=== PATIENT | female | born 1940 | race Caucasian/White ===

== ENCOUNTER 2024-09-14 10:36 | Outpatient (CLI) | payer MEDICARE, SELFPAY ==
--- NOTE | ~2024-09-14 | XR_ITS ---
EXAMINATION: XR hand RT min 3V DATE: 09/14/2024 11:17 INDICATION: Trigger finger, right middle finger. TECHNIQUE: 5 views of right hand were obtained. COMPARISON: None. FINDINGS: There is flexion of the third proximal and distal interphalangeal joints. No fracture. 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 IMPRESSION: 1. Abnormal flexion of third proximal and distal interphalangeal joints. Reviewed, dictated and finalized at location A.
--- OUTSIDE RECORDS SUMMARY | 2024-09-14 12:37 | XMS_ITS | Clinical Summary ---
Author Organization [facility] [facility] Address [address] [place] [address] Care Team Providers Care Dean Of Boys Name Role Phone Miscellaneous, Not In File Unavailable Unava ilable Violeta, Renata Cisneros CLIN NURSE SPEC Primary Care Provider + [phone] Allergies Active Allergy Reactions Criticality Noted Date Comments Demeclocycline Rash Medium 11/30/2019 Lincomycin Rash Medium 11/30/2019 Penicillins Rash Medium Medications alendronate (FOSAMAX) 70 mg tablet Take 1 tablet (70 mg total) by mouth every 7 days Take in the morning with a full glass of water, on an empty stomach, and do not take anything else by mouth or lie down for the next 30 min. Active calcium carbonate-vitam in D3 600 mg(1,500mg) -400 unit capsule Take 1 tablet by mouth 2 (two) times a day Active clopidogreL (PLAVIX) 75 mg tablet Take 1 tablet (75 mg total) by mouth daily Active fenofibrate (TRIGLIDE) 160 mg tablet Take 1 tablet (160 mg total) by mouth daily Active hydroCHLOROthia zide (HYDRODIURIL) 25 mg tablet Take 25 mg by mouth daily Active loratadine (CLARITIN) 10 mg tablet Take 10 mg by mouth daily Active lovastatin (MEVACOR) 10 mg tablet Take 4 tablets (40 mg total) by mouth nightly Active metoprolol XL (TOPROL-XL) 25 mg extended release tablet Take 1 tablet (25 mg total) by mouth 2 (two) times a day Active oxybutynin XL (DITROPAN-XL) 5 mg 24 hr tablet Take 2 tablets (10 mg total) by mouth daily Active raNITIdine (ZANTAC) 150 mg tablet Take 1 tablet (150 mg total) by mouth 2 (two) times a day Active ascorbic acid (VITAMIN C) 500 mg tablet,chewable Take 1 tablet/chew tab (500 mg total) by mouth daily Active albuterol HFA (ProAir HFA) 90 mcg/actuation inhaler Inhale 2 puffs every 4 (four) hours as needed for wheezing or shortness of breath 8.5 g 0 Active senna-docusate (PERICOLACE) 8.6-50 mgIndications:c onstipation Take 1 tablet by mouth 2 (two) times a day as needed for constipation 10 tablet 0 Active potassium chloride ER (KLOR-CON) 10 mEq CR tablet Take 1 tablet/capsule (10 mEq total) by mouth daily Active losartan (COZAAR) 25 mg tablet Take 1 tablet (25 mg total) by mouth daily 30 tablet 11 2 Active furosemide (LASIX) 40 mg tablet Take 1 tablet (40 mg total) by mouth daily Active Active Problems Problem Noted Date Diagnosed Date Thoracic aortic aneurysm without rupture 020 Hyperlipidemia 11/06/2013 Overview (09/25/2016): HYPERLIPIDEMIA NEC/NOS Hypertension 11/06/2013 Overview (09/27/2016): HYPERTENSION NOS Gastroesophageal reflux disease Overview (12/02/2019): GERD CAP (community acquired pneumonia) Positive D dimer Elevated brain natriuretic peptide (BNP) level Peripheral edema Acute on chronic diastolic congestive heart fail ure Chronic obstructive pulmonar y disease with acute lower respiratory infection Former smoker Decreased mobility and endurance Ingrown toenail of both feet Acute congestive heart failure Pneumonia Encounters Date Type Department Care Team Description 09/08/2024 2:45 PM CDT Office Visit [facility] Orth[facility] and Sports Medicine [address] [place] [address] [address], [place] [address] Rebel Villalba NP Right hand pain (Primary Dx); Contracture of joint of finger of right hand 09/08/2024 7:50 AM CDT - 09/08/2024 11:59 PM CDT Hospital Encounter [facility] Orthopedics and Sports Medicine [address] [place] [address] [address] [place] [address] Discharge Disposition: Discharge to home or self care 09/08/2024 Telephone [facility] Orthopedics and Sports Medicine [address] [place] [address] [address] [place] [phone] Rebel Villalba NP 09/08/2024 Orders Only [facility] Orthopedics and Sports Medicine [address] [place] [address] [address] [place] [phone] Rebel Villalba NP Right hand pain (Primary Dx); Contracture of joint of finger of right hand from Last 3 Months Surgical History Surgery Date Site/Laterality Comments CHOLECYSTECTOMY Cholecystectomy HYSTERECTOMY Hysterectomy HYSTERECTOMY 06/23/1966 - 06/22/1967 Hysterectomy CHOLECYSTECTOMY 06/23/1995 - 06/22/1996 gallbladder removal EYE SURGERY cataract Medical History Medical History Date Comments Hx Other Medical urinary inconti nence Pancreatitis pancreatitis Hyperlipidemia Hyperlipidemia Hypertension Hypertension Malignant neoplasm of cervix (HCC) Cancer, cervical Pancreatitis 1995 Pancreatitis Hx Other Medical 2010 Diverticulitis Hx Other Medical Hx of pneumonia Gastroesophageal reflux disease GERD Family History Medical History Relation Name Comments ALS Brother 1 ALS; Other Brother 2 cerebral palsy; Throat cancer Father Cancer -throat ; Cause of : Cancer -throat/Cancer -throat; Cause of : Cancer -throat Breast cancer Mother Cancer -breast ; Liver cancer Mother Cancer -liver; Cause of : Cancer -liver/Cancer -liver; Relation Name Status Comments Brother 1 Brother 2 Father (Age 75) Mother Social History Tobacco Use Types Packs/Day Years Used Date Smoking Tobacco: Former Smokeless Tobacco: Never Tobacco Cessation:Counseling Given: No Alcohol Use Standard Drinks/Week Comments No 0 (1 standard drink = 0.6 oz pur e alcohol) AUDIT-C Answer Date Recorded Q1: How often do you have a drink containing alcohol? Never 09/08/2024 Q2: How many drinks containi ng alcohol do you have on a typical day when you are drinking? Patient does not drink Q3: How often do you have si x or more drinks on one occasion? 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 Gender Identity Not on file Sexual Orientation Not on file Obstetrics History Last Filed Vital Signs Vital Sign Reading Time Taken Comments Blood Pressure 124/70 09/08/2024 2:12 PM CDT Pulse 76 09/08/2024 2:12 PM CDT Temperature 36.3 C (97.3 F) 12/03/2019 12:25 PM CDT Respiratory Rate 20 01/25/2022 10:53 AM CDT Oxygen Saturation 94% 12/03/2019 12:25 PM CDT Inhaled Oxygen Concentration - - Weight 82.6 kg (182 lb) 09/08/2024 2:12 PM CDT Height 160 cm (5' 3 ) 09/08/2024 2:12 PM CDT Body Mass Index 32.24 09/08/2024 2:12 PM CDT Plan of Treatment Health Maintenance Due Date Last Done Comments Hepatitis B Screening 1958 Well Visit 65+ 2004 Zoster Vaccine (2 of 3) 01/03/2011 11/08/2010 Osteoporosis Screening-Bone Density Scan 06/27/2017 06/27/2015, 06/27/2015 DTaP/Tdap/Td Vaccine (2 - Td or Tdap) 06/23/2018 06/23/2008 Depression Screening 11/29/2020 11/30/2019 Fall Risk Assessment 12/02/2020 12/03/2019 Covid-19 Vaccine (5 - 2023-2 5 season) 2024 11/29/2021, 05/10/2021, 08/21/2020, Additional history exists Pneumococcal vaccine 65+ Completed 06/08/2015, 0511/2010 Influenza Vaccine Completed 03/29/2024, , 05/05/2018, Additional history exists Procedures Procedure Name Priority Date/Time Associated Diagnosis Comments XR HAND RIGHT 3 OR MORE VIEWS Routine 09/08/2024 2:01 PM CDT Right hand pain from Last 3 Months Results * XR Hand Right 3 or More Views (09/08/2024 2:01 PM CDT) Anatomical Region Laterality Modality Upper Extremities, Hand Right Digital Radiography Narrative 09/08/2024 2:43 PM CDT X-rays of the wrist demonstrate no fracture subluxation or osseous lesions. Joint spaces are intact. Flexion contracture noted at PIP long finger. Rebel Villalba CLIN NURSE SPEC IMG XR PROCEDURES Final Result from Last 3 Months Insurance MDCR HMO REF [facility] MEDICARE Address: [address] MEDICARE ADVANTAGE [facility] MEDICARE Address: [place] [address] [employer] MEDICARE Advance Directives For more information, please contact: [phone] * Full Code (Latest Code Status on File) Date Activated Date Inactivated Comments 11/30/2019 10:34 PM 12/03/2019 10:43 PM Care Teams Dean Of Boys Relationship Specialty Start Date End Date Violeta, Renata Cisneros NP [address] [place] [address] PCP - General Nurse Practitioner 09/25/21 Miscellaneous, Not In File 12/03/19
--- OUTSIDE RECORDS SUMMARY | 2024-09-14 12:37 | XMS_ITS | Referral Summary ---
Author Organization [facility] [place] [address] [facility] Address [address] [place] [facility] [address] Care Team Providers Care Lifestyle Coordinator Name Role Phone Miscellaneous, Not In File Unavailable Unava ilRenata Plascencia PRODUCTION PAINTER Primary Care Provider + [phone] Encounters Date Type Department Care Team Description 09/08/2024 Telephone [facility] Orthopedics and Sports Medicine [address] [place] [phone] Rebel Villalba NP 09/08/2024 Orders Only [facility] Orthopedics and Sports Medicine [address] [place] [phone] Rebel Villalba NP Right hand pain (Primary Dx); Contracture of joint of finger of right hand 09/08/2024 7:50 AM CDT - 09/08/2024 11:59 PM CDT Hospital Encounter [facility] Orthopedics and Sports Medicine [address] [place] [phone] Discharge Disposition: Discharge to home or self care 09/08/2024 2:45 PM CDT Office Visit [facility] Orthopedics and Sports Medicine [address] [place] [phone] Rebel Villalba NP Right hand pain (Primary Dx); Contracture of joint of finger of right hand from Last 3 Months Allergies Active Allergy Reactions Criticality Noted Date [...] both feet Acute congestive heart failure Pneumonia Social History Tobacco Use Types Packs/Day Years [...] on file 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 Rebel Villalba PRODUCTION PAINTER IMG XR PROCEDURES Final Result from Last 3 Months Insurance MDCR HMO REF [facility] MEDICARE ADVANTAGE [employer] MEDICARE Advance Directives For more information, please contact: [phone] * Full Code (Latest Code Status on File) Date Activated Date Inactivated Comments 11/30/2019 10:34 PM 12/03/2019 10:43 PM Care Teams Lifestyle Coordinator Relationship Specialty Start Date End Date Mcdaniel, Renata Cisneros NP [address] [place] [address] PCP - General Nurse Practitioner 09/25/21 Miscellaneous, Not In File 12/03/19
--- OUTSIDE RECORDS SUMMARY | 2024-09-14 12:38 | XMS_ITS | Clinical Summary ---
Author Organization [facility] Address [address] [place] [address] Phone Care Team Providers Care Accounting Bookkeeper Name Role Phone Violeta, Renata MURILLO CNP Primary Care Provider [phone] Social History Tobacco Use Types Packs/Day Years Used Date Smoking Tobacco: Never Assessed Comments No Sex and Gender Information Value Date Recorded Sex Assigned at Not on file Legal Sex Female 10:17 PM CDT Gender Identity Not on file Sexual Orientation Not on file Plan of Treatment Health Maintenance Due Date Last Done Comments Hepatitis C Virus (HCV) Screening 1940 Zoster Immunization (2 of 3) 01/03/2011 11/08/2010 Respiratory Syncytial Virus (RSV) Immunization (Adult) (1 - 1-dose 75+ series) 2014 Influenza Immunization (#1) 02/22/202403/23, 05/01/2020, 05/04/2019, Additional history exists SARS-COV-2 Immunization ( season) 2024 11/29/2021, 05/10/2021, 08/21/2020, Additional history exists DTaP/Tdap/Td Immunization Discontinued 06/23/2008 TdaP Immunization Completed 06/23/2008 Pneumococcal Immunization (50+ years) Completed 06/08/2015, 10/26/2010 Pneumococcal Immunization Combined Discontinued 06/08/2015, 10/26/2010 DEXA Bone Density Discontinued 06/27/2015 Hepatitis B Immunization Aged Out No longer eligible based on patient's age to complete this topic Meningococcal Immunization (ACWY) Aged Out No longer eligible based on patient's age to complete this topic Rotavirus Immunization Aged Out No lo nger eligible based on patient's age to complete this topic Procedures Procedure Name Priority Date/Time Associated Diagnosis Comments [facility] BONE DENSITOMETRY AXIAL SKELETON Routine 06/27/2015 12:13 PM [employer]HALT PAVING FOREMAN Osteopenia from Last 3 Months or Most Recently Relevant to Health Maintenance Results * [facility] BONE DENSITOMETRY AXIAL SKELETON (06/27/2015 12:13 PM ASPHALT PAVING FOREMAN) Anatomical Region Laterality Modality BODY N/A Other 06/27/2015 3:06 PM [employer]HALT [employer]ING FOREM[employer] Impressions 06/27/2015 3:10 PM ASPHALT PAVING FOREMAN IMPRESSION: Low bone mass. The patient's risk for fracture should be based not only on bone mineral density measurements but also clinical risk factors. Bone mineral density: Normal (T-score above or = -1.0) Low bone mass (T-score between -1.0 and -2.5) replaces the previously used term osteopenia Osteoporosis (T-score = or below -2.5) Medical evaluation for secondary causes of low bone mineral density may be appropriate. FRAX is a World Health Organization validated fracture risk assessment tool that calculates a person's 10 year probability of a major osteoporosis related fracture and hip fracture. According to the National Osteoporosis Foundation guidelines, postmenopausal women and men age 50 or older with low bone mass and a 10 year probability of a major osteoporosis related fracture = or greater than 20% or a 10 year probability of a hip fracture = or greater than 3% should be considered for treatment. For further information, including treatment recommendations, please refer to the 2013 ISCD Official Positions (http://www.iscd.org) and the NOF's Clinician's Guide to Prevention and Treatment of Osteoporosis (http://www.nof.org/professionals/clinical-guidelines) Narrative 06/27/2015 3:10 PM ASPHALT PAVING FOREMAN HISTORY: 75 year old postmenopausal female with given history of other specified disorders of bone density structure (unspecified site).. Current Height: 64 inches Maximum Height: 65.5 inches Weight: 206 pounds Reported use of multivitamin, vitamin D, and calcium. RISK FACTORS: History of fracture as an adult (not secondary to significant trauma) use of antacids for greater than 6 months. No regular weightbearing exercise, no regular dairy product consumption. COMPARISON(S): 02/18/2013, 11/09/2010 [employer] COSMETOLOGY/MODEL: Mesh [place] (S/N [id number]) FINDINGS: AP lumbar spine L2-L4 Total BMD is 1.038 g/iv3A-lntml is -1.4 Most recent prior BMD was 1.041 g/cm2 There has been a 0.3% decrease in BMD which is not statistically significant. Left Hip Current Total BMD is 0.816 g/ji5Z-yvbxy is -1.5 Most recent prior Total BMD was 0.820 g/cm2 There has been a 0.5% decreased in BMD which is not statistically significant. Current femoral neck BMD is 0.703 g/zm7D-htgsp is -2.4 Fracture risk assessment (FRAX): 10 year risk for a major osteoporotic fracture is 15.4 % 10 year risk for a hip fracture is 4.6 % The FRAX tool has not been validated in patients currently or previously treated with pharmacotherapy for osteoporosis. In such patients, clinical judgement must be exercised in interpreting FRAX scores as the fracture risk may be overestimated. Alfonso Lezama M.D. THIS IS AN ELECTRONICALLY VERIFIED REPORT 06/27/2015 3:06 PM: Alfonso Lezama M.D. Radiologist MD: HOLLY Procedure Note Alfonso Lezama MD - 06/27/2015 HISTORY: 75 year old postmenopausal female with given history of other specified disorders of bone density structure (unspecified site).. Current Height: 64 inches Maximum Height: 65.5 inches Weight: 206 pounds Reported use of multivitamin, vitamin D, and calcium. RISK FACTORS: History of fracture as an adult (not secondary to significant trauma) use of antacids for greater than 6 months. No regular weightbearing exercise, no regular dairy product consumption. COMPARISON(S): 02/18/2013, 11/09/2010 [employer]CTOR [employer] COSMETOLOGY/MODEL: [employer] [place] (S/N [id number]) FINDINGS: AP lumbar spine L2-L4 Total BMD is 1.038 g/cp7U-axpfp is -1.4 Most recent prior BMD was 1.041 g/cm2 There has been a 0.3% decrease in BMD which is not statistically significant. Left Hip Current Total BMD is 0.816 g/oz8N-dttxf is -1.5 Most recent prior Total BMD was 0.820 g/cm2 There has been a 0.5% decreased in BMD which is not statistically significant. Current femoral neck BMD is 0.703 g/wt9W-wnhhu is -2.4 Fracture risk assessment (FRAX): 10 year risk for a major osteoporotic fracture is 15.4 % 10 year risk for a hip fracture is 4.6 % The FRAX tool has not been validated in patients currently or previously treated with pharmacotherapy for osteoporosis. In such patients, clinical judgement must be exercised in interpreting FRAX scores as the fracture risk may be overestimated. Alfonso Lezama M.D. THIS IS AN ELECTRONICALLY VERIFIED REPORT 06/27/2015 3:06 PM: Alfonso Lezama M.D. Radiologist MD: [place]LLY IMPRESSION: Low bone mass. The patient's risk for fracture should be based not only on bone mineral density measurements but also clinical risk factors. Bone mineral density: Normal (T-score above or = -1.0) Low bone mass (T-score between -1.0 and -2.5) replaces the previously used term osteopenia Osteoporosis (T-score = or below -2.5) Medical evaluation for secondary causes of low bone mineral density may be appropriate. FRAX is a World Health Organization validated fracture risk assessment tool that calculates a person's 10 year probability of a major osteoporosis related fracture and hip fracture. According to the National Osteoporosis Foundation guidelines, postmenopausal women and men age 50 or older with low bone mass and a 10 year probability of a major osteoporosis related fracture = or greater than 20% or a 10 year probability of a hip fracture = or greater than 3% should be considered for treatment. For further information, including treatment recommendations, please refer to the 2013 ISCD Official Positions (http://www.iscd.org) and the NOF's Clinician's Guide to Prevention and Treatment of Osteoporosis (http://www.nof.org/professionals/clinical-guidelines) Get Ndiaye MD IMG DEXA ORDERABLES Final Re sult from Last 3 Months or Most Recently Relevant to Health Maintenance Insurance [facility] on file Care Teams Accounting Bookkeeper Relationship Specialty Start Date End Date Renata Mcdaniel APRN, FRINGING MACHINE OPERATOR [address] [place] [address] PCP - General Family Medicine 03/07/22
--- OUTSIDE RECORDS SUMMARY | 2024-09-14 12:38 | XMS_ITS | Data Portability ---
[facility] [place] Address [address] [place] [address] Care Team Providers Care [employer] Name Role Phone RENATA MONTGOMERY Primary Care Provider Unavailabl e Assessment No assessment recorded. Plan of Treatment Reminders Order Date Submit Date Provider Last Modified By Organization Details Last Modified Time Details Appointments ANY 15 2024 10:00A M Renata Montgomery, ASSISTANT CHIEF ENGINEER, ASSEMBLER SHOW MOTOR-C Not available Not available Not available Lab lipid panel, serum 2023 024 [facility], [address] [place] [address], [id number], 03/30/2024 08:24:25 BMP, serum or plasma 2023 024 [facility], [address] [place] [address], [id number], 03/30/2024 08:24:27 CBC w/ auto diff 2023 024 [facility], [address] [place] [address], [place], [address], 03/30/2024 08:24:28 lipid panel, serum 2023 024 [facility], [address] [place] [address], [id number], 08/27/2023 03:08:30 BNP (B-type natriur etic peptide ), serum or plasma 2023 024 [facility], [address] [place] [address], [id number], 08/27/2023 10:37:18 CMP, serum or plasma 2023 024 [facility], [address] [place] [address] 2, [place], [address], 08/27/2023 03:08:31 CBC 2023 024 [facility], [address] [place] [address], [place], [address], 08/27/2023 03:08:32 Referral hand surgeon referra l 2024 025 [facility], [address], [place], [address], 08/19/2024 11:28:12 hand surgeon referra l 2023 024 [email or web address] Rogers MD, 2 [facility], [facility] [address], [place], [address], 05/25/2024 16:44:56 Procedures None recorde d. Surgeries None recorde d. Imaging None recorde d. Medication Orders oxybuty uri chlorid e ER 15 mg tablet, extende d release 24 hr 2023 024 [facility][id number], [address], [place], [id number], 08/02/2024 11:32:32 oxybuty uri chlorid e ER 15 mg tablet, extende d release 24 hr 2023 024 [facility] #[id number], [address], [place], [id number], 11/27/2023 11:59:09 oxybuty uri chlorid e ER 15 mg tablet, extende d release 24 hr 2023 024 [facility] #[id number], [address], [place], [id number], 08/26/2023 12:08:44 oxybuty uri chlorid e ER 15 mg tablet, extende d release 24 hr 2022 09/05/2 023 [facility][id number], [address], [place], [id number], 02/25/2023 11:35:35 Patient TargetsNo targets recorded. Patient Instructions Encounter Date Encounter Id Patient Instructions Last Modified By Organization Details Last Modified Time 02/25/2023 [id number] gastroesophageal reflux disease (GERD): care instructions Not available 02/25/2023 11:34:07 high cholesterol : care instructions Not available 02/25/2023 11:34:07 A healthy lifest yle: care instructions Not available 02/25/2023 11:34:08 leg and ankle ed sharita: care instructions Not available 02/25/2023 11:34:07 learning about vitamin D Not available 02/25/2023 11:34:08 Stress Incontine nce: Care Instructions Not available 02/25/2023 11:34:08 learning about h igh blood pressure Not available 02/25/2023 11:34:08 Cont on current medications. Not available 02/25/2023 11:23:01 f/u 6 months DWP barriers to care: none Not available 02/25/2023 11:23:03 08/26/2023 [id number] gastroesophageal reflux disease (GERD): care instructions Not available 08/26/2023 12:08:38 high cholesterol : care instructions Not available 08/26/2023 12:08:38 A healthy lifest yle: care instructions Not available 08/26/2023 12:08:38 leg and ankle ed sharita: care instructions Not available 08/26/2023 12:08:38 learning about vitamin D Not available 08/26/2023 12:08:37 Stress Incontine nce: Care Instructions Not available 08/26/2023 12:08:37 learning about h igh blood pressure Not available 08/26/2023 12:08:37 Cont on current medications. Not available 08/26/2023 11:51:40 f/u 3 months DWP barriers to care: none Not available 08/26/2023 11:55:47 11/27/2023 [id number] gastroesophageal reflux disease (GERD): care instructions Not available 11/27/2023 11:59:02 high cholesterol : care instructions Not available 11/27/2023 11:59:02 A healthy lifest yle: care instructions Not available 11/27/2023 11:59:02 leg and ankle ed sharita: care instructions Not available 11/27/2023 11:59:02 learning about vitamin D Not available 11/27/2023 11:59:02 Stress Incontine nce: Care Instructions Not available 11/27/2023 11:59:02 learning about h igh blood pressure Not available 11/27/2023 11:59:02 Rest: Advise pat ient to limit activities that exacerbate symptoms. Splinting: Recommend using a finger splint to immobilize the affected finger, particularly at night. NSAIDs: Prescribe nonsteroidal anti-inflammatory drugs (e.g., ibuprofen) to reduce pain and inflammation. Ice Therapy: Apply ice to the affected area for 15-20 minutes several times a day to alleviate swelling. 2. Corticosteroid Injection: Cont on current medications. Not available 11/27/2023 12:00:54 f/u 4 months DWP barriers to care: none Not available 11/27/2023 12:01:27 03/29/2024 [id number] influenza (flu) vaccine: care instructions Not available 03/29/2024 11:06:33 gastroesophageal reflux disease (GERD): care instructions Not available 03/29/2024 11:06:07 high cholesterol : care instructions Not available 03/29/2024 11:06:07 A healthy lifest yle: care instructions Not available 03/29/2024 11:06:07 leg and ankle ed sharita: care instructions Not available 03/29/2024 11:06:07 learning about vitamin D Not available 03/29/2024 11:06:07 Stress Incontine nce: Care Instructions Not available 03/29/2024 11:06:07 learning about h igh blood pressure Not available 03/29/2024 11:06:07 Rest: Advise pat ient to limit activities that exacerbate symptoms. Splinting: Recommend using a finger splint to immobilize the affected finger, particularly at night. NSAIDs: Prescribe nonsteroidal anti-inflammatory drugs (e.g., ibuprofen) to reduce pain and inflammation. Ice Therapy: Apply ice to the affected area for 15-20 minutes several times a day to alleviate swelling. 2. Corticosteroid Injection: Cont on current medications. Not available 03/29/2024 11:08:11 f/u 4 months DWP barriers to care: none Not available 03/29/2024 11:04:08 08/02/2024 [id number] gastroesophageal reflux disease (GERD): care instructions Not available 08/02/2024 11:54:43 high cholesterol : care instructions Not available 08/02/2024 11:54:43 A healthy lifest yle: care instructions Not available 08/02/2024 11:54:43 leg and ankle ed sharita: care instructions Not available 08/02/2024 11:54:43 learning about vitamin D Not available 08/02/2024 11:54:43 Stress Incontine nce: Care Instructions Not available 08/02/2024 11:54:43 learning about h igh blood pressure Not available 08/02/2024 11:54:43 Rest: Advise pat ient to limit activities that exacerbate symptoms. Splinting: Recommend using a finger splint to immobilize the affected finger, particularly at night. NSAIDs: Prescribe nonsteroidal anti-inflammatory drugs (e.g., ibuprofen) to reduce pain and inflammation. Ice Therapy: Apply ice to the affected area for 15-20 minutes several times a day to alleviate swelling. 2. Corticosteroid Injection: Cont on current medications. Not available 08/03/2024 10:34:14 f/u 4 months DWP barriers to care: none Not available 08/02/2024 11:43:11 Reason for Referral Hand Surgeon Referral for Ac quired trigger finger of right middle finger Referring Physician: Renata Montgomery [facility], Encounter Date: 03/29/2024 Hand Surgeon Referral for Ac quired trigger finger of right middle finger Referring Physician: Renata Montgomery [facility], Encounter Date: 08/02/2024 Results Created Date Observation Date Name Description Value Unit Range Abnormal Flag Note LastModifiedBy Organization Detail LastModifiedTime 08/26/1908/26/2023 LIPID PANEL cholesterol, total 125 mg/dL 100-19 9 Not Available [facility] Department [address] [place], [address], 08/27/2023 03:08:30 08/26/1908/26/2023 LIPID PANEL triglyceride s 107 mg/dL 0-149 Not Available [facility] Department [address] [place], [address], 08/27/2023 03:08:30 08/26/19 24 08/26/2023 LIPID PANEL HDL cholesterol 58 mg/dL 40-999 Not Available [facility] Department [address] [place], [address], 08/27/2023 03:08:30 08/26/19 24 08/26/2023 LIPID PANEL VLDL cholesterol oscar 21 mg/dL 5-40 Not Available [facility] Department [address] [place], [address], 08/27/2023 03:08:30 08/26/19 24 08/26/2023 LIPID PANEL LDL chol calc (nih) 60 mg/dL 0-99 Not Available [facility] Department [address] [place], [address], 08/27/2023 03:08:30 08/26/19 24 08/26/2023 COMP. METAB OLIC PANEL (14) glucose 109 mg/dL 70-99 above high normal Not Available [facility] Department [address] [place], [address], 08/27/2023 03:08:31 08/26/19 24 08/26/2023 COMP. METAB OLIC PANEL (14) BUN 24 mg/dL 8-27 Not Available [facility] Department [address] [place], [address], 08/27/2023 03:08:31 08/26/19 24 08/26/2023 COMP. METAB OLIC PANEL (14) creatinine 0.96 mg/dL 0.76-1 .27 Not Available [facility] Department [address] [place] [address], [address], 08/27/2023 03:08:31 08/26/19 24 08/26/2023 COMP. METAB OLIC PANEL (14) eGFR 58 >=60 below low normal Units for eGFR value s are mL/mi n/1.7 3 The eGFR Calcu latio n has not been valid ated for patie nts under the age of 18. If test resul ts are displ ayed for a patie nt under the age of 18, disre anca that value . Not Available [facility] Department [address] [place] [address], [address], 08/27/2023 03:08:31 08/26/19 24 08/26/2023 COMP. METAB OLIC PANEL (14) BUN/creatini ne ratio 25 10-28 Not Available [facility] Department [address] [place], [address], 08/27/2023 03:08:31 08/26/19 24 08/26/2023 COMP. METAB OLIC PANEL (14) sodium 143 mmol/ L 134-14 4 Not Available [facility] Department [address] [place] [address], [address], 08/27/2023 03:08:31 08/26/19 24 08/26/2023 COMP. METAB OLIC PANEL (14) potassium 4.2 mmol/ L 3.5-5. 2 Not Available [facility] Department [address] [place] [address], [address], 08/27/2023 03:08:31 08/26/19 24 08/26/2023 COMP. METAB OLIC PANEL (14) chloride 102 mmol/ L 96-106 Not Available [facility] Department [address] [place] [address], [address], 08/27/2023 03:08:31 08/26/19 24 08/26/2023 COMP. METAB OLIC PANEL (14) carbon dioxide, total 30 mmol/ L 20-29 above high normal Not Available [facility] Department [address] [place] [address], [address], 08/27/2023 03:08:31 08/26/19 24 08/26/2023 COMP. METAB OLIC PANEL (14) calcium 10.0 mg/dL 8.7-10 .3 Not Available [facility] Department [address] [place] [address], [address], 08/27/2023 03:08:31 08/26/19 24 08/26/2023 COMP. METAB OLIC PANEL (14) protein, total 6.5 g/dL 6.0-8. 5 Not Available [facility] Department [address] [place] [address], [address], 08/27/2023 03:08:31 08/26/19 24 08/26/2023 COMP. METAB OLIC PANEL (14) albumin 3.9 g/dL 3.7-4. 7 Not Available [facility] Department [address] [place] [address], [address], 08/27/2023 03:08:31 08/26/19 24 08/26/2023 COMP. METAB OLIC PANEL (14) globulin, total 2.6 g/dL 1.5-4. 5 Not Available [facility] Department [address] [place], [address], 08/27/2023 03:08:31 08/26/19 24 08/26/2023 COMP. METAB OLIC PANEL (14) A/G ratio 1.0 1.2-2. 2 below low normal Not Available [facility] Department [address] [place], [address], 08/27/2023 03:08:31 08/26/19 24 08/26/2023 COMP. METAB OLIC PANEL (14) bilirubin, total 0.5 mg/dL 0.0-1. 2 Not Available [facility] Department [address] [place], [address], 08/27/2023 03:08:31 08/26/19 24 08/26/2023 COMP. METAB OLIC PANEL (14) alkaline phosphatase 27 IU/L 44-121 below low normal Not Available [facility] Department [address] [place] [address], [address], 08/27/2023 03:08:31 08/26/19 24 08/26/2023 COMP. METAB OLIC PANEL (14) AST (SGOT) 26 IU/L 0-40 Not Available [facility] Department [address] [place] [address], [address], 08/27/2023 03:08:31 08/26/19 24 08/26/2023 COMP. METAB OLIC PANEL (14) ALT (SGPT) 12 IU/L 0-32 Not Available [facility] Department [address] [place] [address], [address], 08/27/2023 03:08:31 08/26/19 24 08/26/2023 CBC, NO DIFFE RENTI AL/PL ATELE T WBC 7.1 x10e3 /uL 3.4-10 .8 Not Available [facility] Department [address] [place] [address], [address], 08/27/2023 03:08:32 08/26/19 24 08/26/2023 CBC, NO DIFFE RENTI AL/PL ATELE T RBC 4.14 x10e6 /uL 3.77-5 .28 Not Available [facility] Department [address] [place], [address], 08/27/2023 03:08:32 08/26/19 24 08/26/2023 CBC, NO DIFFE RENTI AL/PL ATELE T hemoglobin 13.1 g/dL 11.1-1 5.9 Not Available [facility] Department [address] [place], [address], 08/27/2023 03:08:32 08/26/19 24 08/26/2023 CBC, NO DIFFE RENTI AL/PL ATELE T hematocrit 41.4 % 34.0-4 6.6 Not Available [facility] Department [address] [place], [address], 08/27/2023 03:08:32 08/26/19 24 08/26/2023 CBC, NO DIFFE RENTI AL/PL ATELE T MCV 100 fL 79-97 above high normal Not Available [facility] Department [address] [place], [address], 08/27/2023 03:08:32 08/26/19 24 08/26/2023 CBC, NO DIFFE RENTI AL/PL ATELE T MCH 31.6 pg 26.6-3 3.0 Not Available [facility] Department [address] [place], [address], 08/27/2023 03:08:32 08/26/19 24 08/26/2023 CBC, NO DIFFE RENTI AL/PL ATELE T MCHC 31.6 g/dL 31.5-3 5.7 Not Available [facility] Department [address] [place], [address], 08/27/2023 03:08:32 08/26/19 24 08/26/2023 CBC, NO DIFFE RENTI AL/PL ATELE T RDW 14.6 % 11.5-1 4.5 above high normal Not Available [facility] Department [address] [place], [address], 08/27/2023 03:08:32 08/26/19 24 08/26/2023 CBC, NO DIFFE RENTI AL/PL ATELE T NRBC 0 % 0-0 Not Available [facility] Department [address] [place], [address], 08/27/2023 03:08:32 08/26/19 24 08/27/2023 B-TYP E NATRI URETI C PEPTI DE B-type natriuretic peptide 182.5 pg/mL 0.0-10 0.0 above high normal Sieme ns AD[facility] XP metho dolog y Not Available [facility] ([facility]) [address] [place], [address], 08/27/2023 10:37:18 03/29/20 24 03/30/2024 LIPID PANEL cholesterol, total 159 mg/dL 100-19 9 Not Available [facility] ([facility]) [address] [place], [address], 03/30/2024 08:24:25 03/29/20 24 03/30/2024 LIPID PANEL triglyceride s 95 mg/dL 0-149 Not Available [facility] ([facility]) [address] [place], [address], 03/30/2024 08:24:25 03/29/20 24 03/30/2024 LIPID PANEL HDL cholesterol 67 mg/dL >39 Not Available [facility]) [address] [place], [address], 03/30/2024 08:24:25 03/29/20 24 03/30/2024 LIPID PANEL VLDL cholesterol oscar 17 mg/dL 5-40 Not Available [facility]) [address] [facility] [place], [address], 03/30/2024 08:24:25 03/29/2003/30/2024 LIPID PANEL LDL chol calc ([facility]) 75 mg/dL 0-99 Not Available [facility]) [address] [place], [address], 03/30/2024 08:24:25 03/29/2003/30/2024 BASIC METAB OLIC PANEL (8) glucose 112 mg/dL 70-99 above high normal Not Available [facility] ([facility]) [address] [place], [address], 03/30/2024 08:24:26 03/29/2003/30/2024 BASIC METAB OLIC PANEL (8) BUN 18 mg/dL 8-27 Not Available [facility] ([facility]) [address] [place], [address], 03/30/2024 08:24:26 03/29/2003/30/2024 BASIC METAB OLIC PANEL (8) creatinine 0.83 mg/dL 0.57-1 .00 Not Available [facility] ([facility]) [address] [facility], [place], [address], 03/30/2024 08:24:26 03/29/2003/30/2024 BASIC METAB OLIC PANEL (8) eGFR 69 mL/mi n/1.7 3 >59 Not Available [facility] ([facility]) [address] [place], [address], 03/30/2024 08:24:26 03/29/2003/30/2024 BASIC METAB OLIC PANEL (8) BUN/creatini ne ratio 22 12-28 Not Available [facility] ([facility]) [address] [place], [address], 03/30/2024 08:24:26 03/29/2003/30/2024 BASIC METAB OLIC PANEL (8) sodium 143 mmol/ L 134-14 4 Not Available [facility] ([facility]) [address] [place], [address], 03/30/2024 08:24:26 03/29/2003/30/2024 BASIC METAB OLIC PANEL (8) potassium 4.3 mmol/ L 3.5-5. 2 Not Available [facility] ([facility]) [address] [place], [address], 03/30/2024 08:24:26 03/29/2003/30/2024 BASIC METAB OLIC PANEL (8) chloride 103 mmol/ L 96-106 Not Available [facility] ([facility]) [address] [facility], [place], [address], 03/30/2024 08:24:26 03/29/2003/30/2024 BASIC METAB OLIC PANEL (8) carbon dioxide, total 26 mmol/ L 20-29 Not Available [facility] ([facility]) [address] [place], [address], 03/30/2024 08:24:26 03/29/2003/30/2024 BASIC METAB OLIC PANEL (8) calcium 10.0 mg/dL 8.7-10 .3 Not Available [facility] ([facility]) [address] [place], [address], 03/30/2024 08:24:26 03/29/2003/30/2024 CBC WITH DIFFE RENTI AL/PL ATELE T WBC 7.7 x10e3 /uL 3.4-10 .8 Not Available [facility] ([facility]) [address] [place], [address], 03/30/2024 08:24:28 03/29/20 24 03/30/2024 CBC WITH DIFFE RENTI AL/PL ATELE T RBC 4.70 x10e6 /uL 3.77-5 .28 Not Available [facility] ([facility]) [address] [facility], [place], [address], 03/30/2024 08:24:28 03/29/2003/30/2024 CBC WITH DIFFE RENTI AL/PL ATELE T hemoglobin 14.5 g/dL 11.1-1 5.9 Not Available [facility] ([facility]) [address] [facility], [place], [address], 03/30/2024 08:24:28 03/29/2003/30/2024 CBC WITH DIFFE RENTI AL/PL ATELE T hematocrit 46.1 % 34.0-4 6.6 Not Available [facility] ([facility]) [address] [facility], [place], [address], 03/30/2024 08:24:28 03/29/2003/30/2024 CBC WITH DIFFE RENTI AL/PL ATELE T MCV 98 fL 79-97 above high normal Not Available [facility] ([facility]) [address] [facility], [place], [address], 03/30/2024 08:24:28 03/29/2003/30/2024 CBC WITH DIFFE RENTI AL/PL ATELE T MCH 30.9 pg 26.6-3 3.0 Not Available [facility] ([facility]) [address] [facility], [place], [address], 03/30/2024 08:24:28 03/29/2003/30/2024 CBC WITH DIFFE RENTI AL/PL ATELE T MCHC 31.5 g/dL 31.5-3 5.7 Not Available [facility] ([facility]) [address] [place], [address], 03/30/2024 08:24:28 03/29/2003/30/2024 CBC WITH DIFFE RENTI AL/PL ATELE T RDW 12.0 % 11.7-1 5.4 Not Available [facility] ([facility]) [address] [facility], [place], [address], 03/30/2024 08:24:28 03/29/20 24 03/30/2024 CBC WITH DIFFE RENTI AL/PL ATELE T platelets 257 x10e3 /uL 150-45 0 Not Available [facility] ([facility]) [address] [facility], [place], [address], 03/30/2024 08:24:28 03/29/2003/30/2024 CBC WITH DIFFE RENTI AL/PL ATELE T neutrophils 64 % notest ab. Not Available [facility] ([facility]) [address] [facility], [place], [address], 03/30/2024 08:24:28 03/29/20 24 03/30/2024 CBC WITH DIFFE RENTI AL/PL ATELE T lymphs 21 % notest ab. Not Available [facility] ([facility]) [address] [facility], [place], [address], 03/30/2024 08:24:28 03/29/2003/30/2024 CBC WITH DIFFE RENTI AL/PL ATELE T monocytes 9 % notest ab. Not Available [facility] ([facility]) [address] [facility], [place], [address], 03/30/2024 08:24:28 03/29/20 24 03/30/2024 CBC WITH DIFFE RENTI AL/PL ATELE T eos 4 % notest ab. Not Available [facility] ([facility]) [address] [facility], [place], [address], 03/30/2024 08:24:28 03/29/20 24 03/30/2024 CBC WITH DIFFE RENTI AL/PL ATELE T basos 1 % notest ab. Not Available [facility] ([facility]) [address] [facility], [place], [address], 03/30/2024 08:24:28 03/29/20 24 03/30/2024 CBC WITH DIFFE RENTI AL/PL ATELE T neutrophils (absolute) 5.1 x10e3 /uL 1.4-7. 0 Not Available [facility] ([facility]) [address] [facility], [place], [address], 03/30/2024 08:24:28 03/29/2003/30/2024 CBC WITH DIFFE RENTI AL/PL ATELE T lymphs (absolute) 1.6 x10e3 /uL 0.7-3. 1 Not Available [facility] ([facility]) [address] [facility], [place], [address], 03/30/2024 08:24:28 03/29/20 24 03/30/2024 CBC WITH DIFFE RENTI AL/PL ATELE T monocytes(ab solute) 0.7 x10e3 /uL 0.1-0. 9 Not Available [facility] ([facility]) [address] [facility], [place], [address], 03/30/2024 08:24:28 03/29/2003/30/2024 CBC WITH DIFFE RENTI AL/PL ATELE T eos (absolute) 0.3 x10e3 /uL 0.0-0. 4 Not Available [facility] ([facility]) [address] [facility], [place], [address], 03/30/2024 08:24:28 03/29/2003/30/2024 CBC WITH DIFFE RENTI AL/PL ATELE T baso (absolute) 0.1 x10e3 /uL 0.0-0. 2 Not Available [facility] ([facility]) [address] [place], [address], 03/30/2024 08:24:28 03/29/20 24 03/30/2024 CBC WITH DIFFE RENTI AL/PL ATELE T immature granulocytes 1 % notest ab. Not Available [facility] ([facility]) [address] [facility], [place], [address], 03/30/2024 08:24:28 03/29/2003/30/2024 CBC WITH DIFFE RENTI AL/PL ATELE T immature grans (abs) 0.0 x10e3 /uL 0.0-0. 1 Not Available [facility] ([facility]) [address] [facility], [place], [address], 03/30/2024 08:24:28 Result Notes None recorded. 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 Active 2019 Not Available [facility] 4 23:39:43 Mild memory disturban ce 822337392 Active 2021 Not Available [facility] 4 23:39:42 Essential hypertens ion 61682282 Active Not Available [facility] 4 23:39:43 Hyperlipi demia 73489363 Active Not Available [facility] 4 23:39:43 Osteopeni a 344692083 Completed 01/13/2017 Renata Montgomery APN, ASSEMBLER SHOW MOTOR-C Attn: Accounting ,[address] [facility], [place], [address] , [facility] 7 11:10:51 Diverticu litis of colon 343349085 Active Not Available [facility] 4 23:39:42 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 51933069 Active Not Available [facility] 4 23:39:43 History of cerebrova scular accident 865607119 Active Not Available [facility] 4 23:39:42 Gastroeso phageal reflux disease 288867523 Active Not Available [facility] 4 23:39:42 Obesity 552389693 Active Not Available [facility] 4 23:39:42 Acquired trigger finger of right middle finger 76358036944 9105 Active 2023 Renata Montgomery APN, ASSEMBLER SHOW MOTOR-C Attn: Accounting ,[address] [facility], [place], [address] , [facility] 4 11:47:51 Random blood sugar above reference range 966121175 Active Not Available [facility] 4 23:39:42 Cough 17752795 Completed 01/13/2017 Renata Montgomery APN ASSEMBLER SHOW MOTOR-C Attn: Accounting ,[address] [facility], [place], [place], [address] [place] [address] , [facility] 7 11:10:45 Seasonal allergy 087439992 Active Not Available [facility] 4 23:39:42 Advance directive discussed with patient 664323541 Completed 05/05/2018 Renata Montgomery APN, FNP-C Attn: Accounting ,[address] [facility], [place], [place], [address] [place] [address] , [facility] 8 11:36:28 Osteoarth ritis 471820459 Active 2016 Not Available [facility] 4 23:39:42 Excessive daytime sleepines s - normal night sleep 813212083 Active 2016 Not Available [facility] 4 23:39:42 Problem Notes None recorded. Procedures Surgical History Date Name Laterality Status Provider Name and Address Organization Details Recorded Time 05/23/19 96 Cholecystectomy completed Renata Montgomery APN, ASSEMBLER SHOW MOTOR-C Attn: Accounting, [address] [facility], [place], [address], [facility] 07/08/2017 15:56:16 01/01/19 67 Hysterectomy completed Angelika WAGNER - [facility] 09/18/2016 11:34:25 Dilation and Curettage completed Yuliya Baumann [facility] 08/17/2014 12:37:34 Imaging Results None recorded. Procedure Notes None recorded. Medical Equipment None Reported. Allergies Allergen ID Allergen Name Allergen Category Reaction Reaction Severity Criticality Documentation Date Start Date Code Code System Note Provider Name and Address Organization Details Recorded Time 972202 lincomyci n medicatio n rash Not available high 08/02/20242019 6398 RxNorm Not Available Not Available Not Available 004733 demeclocy canales medicatio n rash Not available high 08/02/20242019 3154 RxNorm Not Available Not Available Not Available 20715 Product containin g penicilli n (product) medicatio n rash severe Not available 08/17/2014 95669 8001 SNOMED Not Available Not Available Not Available 76315 demeclocy canales hydrochlo ride medicatio n rash severe Not available 01/13/2017 78769 RxNorm Not Available Not Available Not Available Medications Name Sig Start Date Stop Date Status Note LastModified by Organization Details LastModified Time azithromy jade 500 mg tabs 12/13 completed Not Available Not Available Not Available hydrochlo rothiazid e 25 mg tabs 12/13 completed not taking Not Available Not Available Not Available azithromy jade 250 mg tabs 12/13 completed Not Available Not Available Not Available Prescript ion - Change 05/21 completed Not Available Not Available Not Available alendrona te sodium 70 mg tabs 12/13 completed Not Available Not Available Not Available proair hfa 108 mcg/act aers 05/03 completed Not Available Not Available Not Available oxybutyni n chloride 5 mg tabs 12/13 completed Not Available Not Available Not Available furosemid e 40 mg tablet TAKE 1 TABLET BY MOUTH EVERY DAY active Not Available Not Available No t Available oxybutyni n chloride ER 15 mg tablet,ex tended release 24 hr TAKE 1 TABLET BY MOUTH EVERY DAY active was not helping when taking Not Available Not Available Not Available oxybutyni n chloride ER 10 mg tablet,ex tended release 24 hr TAKE 1 TABLET BY MOUTH EVERY DAY 08/25 completed Not Available Not Available Not Available azithromy jade 250 mg tablet TAKE 2 TABLETS (500 MG) BY ORAL ROUTE ONCE DAILY FOR 1 DAY THEN 1 TABLET (250 MG) BY ORAL ROUTE ONCE DAILY FOR 4 DAYS 08/02 completed Not Available Not Available Not Available promethaz ine 6.25 mg/5 mL oral syrup TAKE 5 ML BY MOUTH FOUR TIMES DAILY NEEDED 08/25 completed Not Available Not Available Not Available alendrona te 70 mg tablet TAKE 1 TABLET BY MOUTH EVERY WEEK active Not Available Not Available No t Available lovastati n 40 mg tablet TAKE 1 TABLET BY MOUTH EVERY EVENING WITH A MEAL active Not Available Not Available No t Available potassium chloride ER 10 mEq tablet,ex tended release TAKE 1 TABLET BY MOUTH EVERY DAY 08/22 completed Not Available Not Available Not Available Zyrtec 10 mg tablet Take 1 tablet every day by oral route. 01/04 completed Not Available Not Available Not Available clopidogr el 75 mg tablet TAKE 1 TABLET BY MOUTH EVERY DAY active Not Available Not Available No t Available ciproflox acin 500 mg tablet 05/21 completed Not Available Not Available Not Available sulfameth oxazole 800 mg-trimet hoprim 160 mg tablet Take 1 tablet every 12 hours by oral route for 10 days. 10/31 completed Not Available Not Available Not Available Tessalon Perles 100 mg capsule Take 1 capsule 3 times a day by oral route. 01/04 completed Not Available Not Available Not Available ranitidin e 150 mg tablet TAKE 1 TABLET BY MOUTH TWICE DAILY 07/27 completed Not Available Not Available Not Available losartan 25 mg tablet 08/22 completed Not Available Not Available Not Available hydrochlo rothiazid e 25 mg tablet TAKE 1 TABLET BY MOUTH EVERY DAY IN THE MORNING 03/14 completed Not Available Not Available Not Available furosemid e 20 mg tablet TAKE 1 TABLET BY MOUTH EVERY DAY IN THE MORNING 03/29 completed Not Available Not Available Not Available metoprolo l succinate ER 25 mg tablet,ex tended release 24 hr Take 1 tablet every day by oral route as directed . active Not Available Not Available No t Available oxybutyni n chloride 5 mg tablet Take 1 tablet twice a day by oral route. 02/21 completed Not Available Not Available Not Available loratadin e 10 mg tablet Take 1 tablet every day by oral route. 05/03 completed not taking Not Available Not Available Not Available metoprolo l tartrate 25 mg tablet TAKE 1 TABLET BY MOUTH TWICE DAILY active Not Available Not Available No t Available nitrofura ntoin monohydra te/macroc rystals 100 mg capsule TAKE 1 CAPSULE BY MOUTH EVERY 12 HOURS FOR 5 DAYS 08/21 completed Not Available Not Available Not Available fenofibra te 160 mg tablet TAKE 1 TABLET BY MOUTH EVERY DAY active Not Available Not Available No t Available Vitamin C active Not Available Not Disha ilable Not Available Calcium 600 + D(3) 600 mg-10 mcg (400 unit) tablet Take 1 tablet twice a day by oral route. 2015 active OTC Not Available Not Available Not Avai lable Myrbetriq 25 mg tablet,ex tended release Take 1 tablet every day by oral route. 09/08 completed Not Available Not Available Not Available guaifenes in ER 600 mg tablet, extended release 12 hr Take 1 tablet every 12 hours by oral route as needed for 10 days. 05/21 completed Not Available Not Available Not Available G Tussin AC 10 mg-100 mg/5 mL oral liquid Take 10 mL every 4 hours by oral route as needed. 10/31 completed Not Available Not Available Not Available Fluzone High-Dose Quad 2019- (PF) 240 mcg/0.7 mL IM syringe 09/26 completed Not Available Not Available Not Available Vitals Date Recorded Body height Body mass index (BMI) Body weight Oxygen saturation Oxygen saturation in Arterial blood by Pulse oximetry Heart rate Respiratory rate Body temperature Systolic blood pressure Diastolic blood pressure Provider Name and Address Organization Details Last Updated DateTime 3 162.56 cm 32.3 kg/m2 08471.3 7 g 95 % 95 % 82 /min 16 /min 97.5 [degF] 126 mm[Hg] 76 mm[Hg] Leanna Higgins [place] - [facility] 3 11:19:54 Date Recorded Body height Body mass index (BMI) Body weight Respiratory rate Body temperature Oxygen saturation Oxygen saturation in Arterial blood by Pulse oximetry Heart rate Systolic blood pressure Diastolic blood pressure Provider Name and Address Organization Details Last Updated DateTime 4 162.56 cm 31.6 kg/m2 79761 g 16 /min 97.8 [degF] 95 % 95 % 70 /min 120 mm[Hg] 68 mm[Hg] Leanna Higgins Seferino [facility] 4 11:46:29 Date Recorded Body height Body mass index (BMI) Body weight Oxygen saturation Oxygen saturation in Arterial blood by Pulse oximetry Heart rate Respiratory rate Body temperature Systolic blood pressure Diastolic blood pressure Provider Name and Address Organization Details Last Updated DateTime 4 162.56 cm 31 kg/m2 53879.5 g 95 % 95 % 83 /min 16 /min 97.7 [degF] 124 mm[Hg] 82 mm[Hg] Deanna Cooper MA [facility] 4 11:27:54 Date Recorded Body height Body mass index (BMI) Body weight Oxygen saturation Oxygen saturation in Arterial blood by Pulse oximetry Heart rate Respiratory rate Body temperature Systolic blood pressure Diastolic blood pressure Provider Name and Address Organization Details Last Updated DateTime 4 162.56 cm 31.8 kg/m2 36214.5 9 g 95 % 95 % 82 /min 16 /min 97.3 [degF] 110 mm[Hg] 76 mm[Hg] Leanna Higgins Seferino [facility] 4 10:57:23 Date Recorded Body height Body mass index (BMI) Body weight Oxygen saturation Oxygen saturation in Arterial blood by Pulse oximetry Body temperature Respiratory rate Heart rate Systolic blood pressure Diastolic blood pressure Provider Name and Address Organization Details Last Updated DateTime 5 162.56 cm 31.2 kg/m2 14560.8 1 g 95 % 95 % 97.5 [degF] 18 /min 110 /min 142 mm[Hg] 86 mm[Hg] Leanna Higgins Seferino [facility] 5 11:36:30 Social History Question Answer Notes LastModified by Organizat ion Details LastModified Time Tobacco Smoking Status Former Smoker quit 1995 Ani Anderson MA [facility] 11/21/2021 09:25:18 Do You Have An Advance Directive? No Information not available 05/04/2019 What Is Your Level Of Alcohol Consumption? None Information not available 12/14/2019 Are You Blind Or Do You Have Difficulty Seeing? No Glasses Information not available 04/02/2021 What Is Your Level Of Caffeine Consumption? Moderate Coffee [email or web address] Information not available 09/26/2020 How Much Tobacco Do You Chew? None Information not available 08/17/2014 In The 14 Days Before Symptom Onset, Have You Had Close Contact With A Laboratory-confi rmed COVID-19 While That Case Was Ill? No Information not available 11/01/2019 In The 14 Days Before Symptom Onset, Have You Had Close Contact With A Person Who Is Under Investigation For COVID-19 While That Person Was Ill? No Information not available 11/01/2019 Have You Been To An Area Known To Be High Risk For COVID-19? No Information not available 11/01/2019 Are You Currently Employed? No [email or web address] Information not available 09/26/2020 Are You Deaf Or Do You Have Serious Difficulty Hearing? Yes Left Ear Difficulty Hearing. Information not available 12/29/2020 What Type Of Diet Are You Following? REGULAR Information not available 12/14/2019 Which Illicit Or Recreational Drugs Have You Used? Denied Information not available 11/01/2019 Do You Or Have You Ever Used E-cigarettes Or Vape? Never Used Electronic Cigarettes Information not available 05/04/2019 What Is Your Occupation? Retired Information not available 03/14/2020 Are There Any Guns Present In Your Home? Yes Information not available 08/17/2014 Hard Of Hearing Or Deaf In One Or Both Ears? No Information not available 08/17/2014 Legally Blind In One Or Both Eyes? No Information not available 08/17/2014 Marital Status Single Informatio n not available 08/17/2014 What Was The Date Of Your Most Recent Tobacco Screening? 08/02/2024 Information not available 08/02/2024 How Many Children Do You Have? 2 Information not available 12/29/2020 Performs Monthly Self-breast Exam? No Information not available 08/17/2014 What Is Your Relationship Status? Single Boyfriend [email or web address] Information not available 09/26/2020 Do You Use Your Seat Belt Or Car Seat Routinely? Yes [email or web address] Information not available 09/26/2020 Seat Belts Used Routinely Yes Information not available 08/17/2014 Are You Sexually Active? No Information not available 12/29/2020 Smoke Alarm In Home Yes Information not available 08/17/2014 Do You Have Smoke And Carbon Monoxide Detectors In Your Home? Yes Information not available 09/26/2020 Are You Passively Exposed To Smoke? No [email or web address] Information not available 09/26/2020 Do You Or Have You Ever Used Smokeless Tobacco? Never Used Smokeless Tobacco Information not available 05/04/2019 How Much Tobacco Do You Smoke? No [email or web address] Information not available 09/24/2017 General Stress Level Low Information not available 08/17/2014 Do You Feel Stressed (tense, Restless, Nervous, Or Anxious, Or Unable To Sleep At Night)? [id number] [email or web address] Information not available 09/26/2020 Do You Use Any Illicit Or Recreational Drugs? No [email or web address] Information not available 09/26/2020 Do You Use Sunscreen Routinely? No Information not available 05/04/2019 Has Tobacco Cessation Counseling Been Provided? Yes [email or web address] Information not available 02/21/2022 On What Date Was Tobacco Cessation Counseling Provided? 08/02/2024 Information not available 08/02/2024 How Many Years Have You Smoked Tobacco? 30 Information not available 08/17/2014 Do You Or Have You Ever Used Any Other Forms Of Tobacco Or Nicotine? No Information not available 08/21/2021 Sex: Female Functional Status Question Answer Note LastModified by Organization D etails LastModified Time Are you able to care for yourself? Yes [email or web address] Information n ot available 09/26/2020 What is your exercise level? None [email or web address] Information not available 02/25/2023 Mental Status None recorded. Family History Relationship Description Onset Age of this Age Resolved Age Notes LastModified by Organization Details LastModified Time Mother Malignant tumor of breast [email or web address] Not available 2015 09:34:05 Mother Malignant neoplastic disease 58 liver [email or web address] Not available 2015 09:34:05 Maternal Grandmother Malignant neoplasm of liver 80 [email or web address] Not available 2015 09:34:05 Medical History Condition Response Coronary Artery Disease N High Blood Pressure Y Atrial Fibrillation N Thyroid Problems Y Kidney or Bladder Problems Y GI Problems N Depression N COPD N Blood Clots N Skin Problems N Eating Disorder N Anemia N Heart Attack (AR) N Anxiety Disorder N Diabetes N Muscle, Joint, or Bone Problems N Seizures/Epilepsy N Acid Reflux (GERD) Y Cancer Y Stroke N Asthma N Allergies N High Cholesterol Y Hepatitis N Liver Disease N Schizophrenia N Headaches N Heart Failure N Gynecological History Statement/Question Response Current Control Method Menopause Date of Last Mammogram LMP Unknown Obstetrics History GPAL:G 0 P 0 0 0 0 Immunizations Vaccine Type Date Status Note Provider Nam e and Address Organization Details Recorded Time Tdap 9 completed Not Available [facility] 07/01/2023 23:39:43 Influenza, split virus, trivalent, preservative 3 completed Not Available [facility] 07/01/2023 23:39:43 Influenza, adjuvanted, quadrivalent, PF 1 completed Not Available [facility] 07/01/2023 23:39:43 Influenza, high-dose, quadrivalent, PF 0 completed Not Available [facility] 07/01/2023 23:39:43 Influenza, split virus, trivalent, preservative 4 completed Not Available [facility] 07/01/2023 23:39:43 Influenza, split virus, quadrivalent, preservative 6 completed Not Available [facility] 07/10/2019 02:32:32 COVID-19, mRNA, LNP-S, bivalent, PF, 50 mcg/0.5 mL or 25mcg/0.25 mL dose 2 completed Not Available [facility] 07/01/2023 23:39:43 Influenza, high-dose, quadrivalent, PF 3 completed Renata Montgomery APN, ASSEMBLER SHOW MOTOR-C Attn: Accounting,[address] [facility], [place], [address], [place] - [facility] 08/26/2023 11:52:56 COVID-19, mRNA, LNP-S, PF, 50 mcg/0.5 mL 3 completed Renata Montgomery APN, ASSEMBLER SHOW MOTOR-C Attn: Accounting,[address] [facility], [place], [address], [place] [facility] 08/26/2023 11:52:56 Influenza, split virus, quadrivalent, preservative 7 completed Not Available [facility] 07/10/2019 02:39:19 Influenza, split virus, quadrivalent, preservative 8 completed Not Available [facility] 07/10/2019 02:36:32 Influenza, split virus, quadrivalent, preservative 9 completed Not Available [facility] 07/10/2019 02:38:44 COVID-19, mRNA, LNP-S, PF, 100 mcg/0.5mL dose or 50 mcg/0.25mL dose 1 completed Ellen Sethi LPN null, [place] [facility] 07/24/2020 15:07:26 COVID-19, mRNA, LNP-S, PF, 100 mcg/0.5mL dose or 50 mcg/0.25mL dose 1 completed EVARISTO Gardiner [place], [place] [facility] 08/21/2020 14:46:45 COVID-19, mRNA, LNP-S, PF, 100 mcg/0.5mL dose or 50 mcg/0.25mL dose 1 completed Uday Merritt [place], [place] [facility] 05/10/2021 12:35:30 COVID-19, mRNA, LNP-S, PF, 100 mcg/0.5mL dose or 50 mcg/0.25mL dose 2 completed Leanna [place], [place] [facility] 11/29/2021 10:27:58 Influenza, high-dose, quadrivalent, PF 2 completed Jayna Lou [place], [place] [facility] 04/10/2022 10:54:10 Influenza, high-dose, trivalent, PF 4 completed Renata Montgomery, ASSISTANT CHIEF ENGINEER, ASSEMBLER SHOW MOTOR-C Attn: Accounting,[address] [facility], [place], [address], [facility] 03/30/2024 14:07:35 pneumococcal polysaccharide PPV23 1 completed Not Available [facility] 07/01/2023 23:39:43 zoster live 1 completed Not Available [facility] 07/01/2023 23:39:43 COVID-19, mRNA, LNP-S, PF, 50 mcg/0.5 mL 5 completed Renata Montgomery ASSISTANT CHIEF ENGINEER, ASSEMBLER SHOW MOTOR-C Attn: Accounting,[address] [facility], [place], [address], [facility] 08/03/2024 10:34:00 Influenza, split virus, quadrivalent, preservative 5 completed Not Available [facility] 07/10/2019 02:32:11 Pneumococcal conjugate PCV 13 5 completed Not Available [facility] 07/10/2019 02:31:40 Past Encounters Encounter ID Performer Location Encounter Start Date Encounter Closed Date Diagnosis/Indication Diagnosis SNOMED-CT Code Diagnosis ICD10 Code Diagnosis Note [id number] Pat Perez (Adult Med) [address] [place] [address] 08/17/2014 11:33:09 08/17/2014 13:08:35 Essential hypertension 50506733 well controlled . continue same medication s Hyperlipidemia 70935578 continue Lovastatin 40 mg po once daiy. Gastroesop hageal reflux disease 538255678 Stable on Ranitidine . [id number] Lynda Perez (Adult Med) [address] [place] [address] 12/15/2014 09:44:51 12/15/2014 11:00:47 Essential hypertension 21308064 well controlled . continue same medication s Hyperlipidemia 22319789 continue Lovastatin 40 mg po once daiy. Gastroesop hageal reflux disease 489483566 Stable on Ranitidine . Obesity 099968636 Advise d patient to do regular exercise like walking,lo w fat,low carb diet and weight reduction. Osteopenia 779604662 Las t Dexa scan was dne on 02/18/13. Contiue calcium and Vitamin D. [id number] Get Perez (Adult Med) [address] [place] [address] 06/08/2015 10:00:29 06/09/2015 14:26:43 Essential hypertension 27893961 I10 well controlled . continue same medication s Hyperlipidemia 84489981 E78.2 continue Lovastatin 40 mg po once daiy. Osteopenia 868505206 M85 .80 Last Dexa scan was dne on 02/18/13. Contiue calcium and Vitamin D. Influenza vaccine needed 9935298748 106 Z23 Administra tion of pneumococcal vaccine 79140408 Z23 Obesity 813052335 E66.09 Advised patient to do regular exercise like walking,lo w fat,low carb diet and weight reduction. [id number] Renata Montgomery APN, FNP-C [facility] (Adult Med) [address] [facility] [place] [address] 01/18/2016 10:22:45 01/18/2016 14:23:27 Adult health examination 730604602 Z00.01 Gastroesop hageal reflux disease 780496592 K21.9 Essential hypertension 10887390 I10 Hyperlipidemia 46282307 E78.5 [id number] Renata Montgomery APN, FNP-C [facility] (Adult Med) [address] [facility] [place] [address] 04/03/2016 09:23:12 04/03/2016 12:47:42 Cough 69582142 R05 Seasonal allergy 8878175 04 J30.2 Influenza vaccine needed 0826586003 106 Z23 Obesity 760633184 E66.9 Advance di rective discussed with patient 967782595 Z71.89 [id number] Renata Montgomery APN, FNP-C [facility] (Adult Med) [address] [facility] [place] [address] 05/21/2016 10:22:28 05/21/2016 13:45:46 Essential hypertension 37476674 I10 Continue on metoprolol tartrate 25 mg BID Hyperlipidemia 91587094 E78.5 Taking lovastatin 40 mg and fenofibrat e 160 mg Gastroesop hageal reflux disease 133454418 K21.9 Taking Ranitidine 150 mg BID. Random blo od sugar above reference range 259828825 R73.9 Recheck labs today. Osteopenia 267211865 M85 .80 Female str ess incontinence 42330098 N39.3 Continue with oxybutyin chloride 5 mg. Screening for malignant neoplasm of colon 419503766 Z12.11 History of cerebrovascular accident 643102622 Z86.73 Continue with Plavix 75mg. [id number] Renata Montgomery APN, FNP-C [facility] (Adult Med) [address] [place] [address] 09/18/2016 10:52:13 09/18/2016 15:51:48 Gastroesophageal reflux disease 669757319 K21.9 Taking Ranitidine 150 mg BID. History of cerebrovascular accident 570072533 Z86.73 Continue with Plavix 75 mg. Obesity 117466012 E66.9 discussed increasing activity level to improve weight and mobility Hyperlipidemia 40287820 E78.5 Cont taking lovastatin 40 mg and fenofibrat e 160 mg Essential hypertension 25734975 I10 Continue on metoprolol tartrate 25 mg BID Female str ess incontinence 97693148 N39.3 Continue with oxybutyin chloride 5 mg. May increase to BID. Osteoarthritis 891018628 M19.90 right hip pain, takes OTC once in a while, encouraged increased mobility [id number] Renata Montgomery APN, [facility] (Adult Med) [address] [place] [address] 01/13/2017 10:28:00 01/14/2017 09:47:12 Osteoarthritis 582734121 M19.90 right hip pain, takes OTC once in a while, encouraged increased mobility Obesity 984686437 E66.9 discussed increasing activity level to improve weight and mobility Hyperlipidemia 33963711 E78.5 Cont taking lovastatin 40 mg and fenofibrat e 160 mg Essential hypertension 23742567 I10 Continue on metoprolol tartrate 25 mg BID History of cerebrovascular accident 212394689 Z86.73 Continue with Plavix 75 mg. Gastroesop hageal reflux disease 999093289 K21.9 Taking Ranitidine 150 mg BID. Female str ess incontinence 49833293 N39.3 Continue with oxybutyin chloride 5 mg. May increase to BID. Advance di rective discussed with patient 714659769 Z71.89 Excessive daytime sleepiness - normal night sleep 693149783 G47.19 score of 9-higher than normal daytime sleepiness ; dwp sleep habits and hygeine. does not wish to have sleep study at this time [id number] Renata Montgomery APN, FNP-C [facility] (Adult Med) [address] [place] [address] 05/26/2017 10:53:28 05/27/2017 13:36:44 Essential hypertension 46025989 I10 Continue on metoprolol tartrate 25 mg BID Hyperlipidemia 89555337 E78.5 Cont taking lovastatin 40 mg and fenofibrat e 160 mg Gastroesop hageal reflux disease 694561922 K21.9 Taking Ranitidine 150 mg BID. Female str ess incontinence 81109532 N39.3 Continue with oxybutyin chloride 5 mg. May increase to BID. or take qam plus 1/2 tab 2-3 days a week; Osteoarthritis 761399495 M19.90 right hip pain, takes OTC once in a while, encouraged increased mobility Obesity 226541476 E66.9 discussed increasing activity level to improve weight and mobility History of cerebrovascular accident 574111545 Z86.73 Continue with Plavix 75 mg. Administra tion of influenza vaccine 17458932 Z23 [id number] Renata Montgomery APN, FNP-C [facility] (Adult Med) [address] [place] [address] 07/08/2017 14:37:30 07/09/2017 18:04:28 Dysuria 21875875 R30.0 urine clear, dwp to cont to drink water and notify office if return of pain/sympt oms Low back pain 180640013 M54.5 cont with conservati ve measures to reduce pain/spasm s [id number] Renata Montgomery APN, FNP-C [facility] (Adult Med) [address] [place] [place] [address] 09/24/2017 10:58:20 09/25/2017 08:31:54 Essential hypertension 82302598 I10 Continue on metoprolol tartrate 25 mg BID Hyperlipidemia 82454550 E78.5 Cont taking lovastatin 40 mg and fenofibrat e 160 mg Gastroesop hageal reflux disease 711705784 K21.9 Taking Ranitidine 150 mg BID. Female str ess incontinence 94881539 N39.3 Continue with oxybutyin chloride 5 mg. May increase to BID. or take qam plus 1/2 tab 2-3 days a week; Osteoarthritis 078221844 M19.90 right hip pain, takes OTC once in a while, encouraged increased mobility Obesity 432281142 E66.9 discussed increasing activity level to improve weight and mobility History of cerebrovascular accident 039663063 Z86.73 Continue with Plavix 75 mg. Hyperglycemia 84153377 R 73.9 recheck a1c Vitamin D deficiency 347 15459 E55.9 recheck, may cont replacemen t Pain in right thumb 1076 496833 537500 M79.644 right thumb pain started 2 weeks ago, painful and pops at IP joint when extending; obtain xray thumb, plan pending results, use thumb splint, ice as needed [id number] Renata Montgomery APN, [employer] [facility] (Adult Med) [address] [place] [address] 01/28/2018 11:20:57 01/28/2018 14:24:11 Essential hypertension 41590390 I10 initially high today, fine on recheck;Co ntinue on metoprolol tartrate 25 mg BID Hyperlipidemia 30790741 E78.5 Cont taking lovastatin 40 mg and fenofibrat e 160 mg Gastroesop hageal reflux disease 732395054 K21.9 cont Ranitidine 150 mg BID. Hyperglycemia 08578359 R 73.9 recheck a1c in 6 months Vitamin D deficiency 347 04732 E55.9 recheck, may cont replacemen t to raise and maintain level above 30 Female str ess incontinence 50876374 N39.3 Continue with oxybutynin chloride 5 mg. May increase to BID. or take qam plus 1/2 tab 2-3 days a week; Osteoarthritis 757005947 M19.90 right hip pain, takes OTC once in a while, encouraged increased mobility Obesity 005297490 E66.9 discussed increasing activity level to improve weight and mobility History of cerebrovascular accident 738041685 Z86.73 Continue with Plavix 75 mg. Endocrine/ metabolic screening 255378323 Z13.228 Excessive daytime sleepiness - normal night sleep 729456256 G47.19 score of 9-higher than normal daytime sleepiness ; dwp sleep habits and hygeine. does not wish to have sleep study at this time; would like to try vit B12 OTC [id number] Renata Montgomery APN, ANA Perez (Adult Med) [address] [place] [address] 05/05/2018 11:00:42 05/05/2018 17:13:57 Administration of influenza vaccine 50525698 Z23 [facility] handout provided Essential hypertension 90443338 I10 Continue on metoprolol tartrate 25 mg BID Hyperlipidemia 06593541 E78.5 Cont taking lovastatin 40 mg and fenofibrat e 160 mg Gastroesop hageal reflux disease 087031978 K21.9 cont Ranitidine 150 mg BID. Hyperglycemia 76644942 R 73.9 recheck a1c in 3 months Vitamin D deficiency 347 17245 E55.9 may cont replacemen t to raise and maintain level above 30 Female str ess incontinence 92716504 N39.3 Continue with oxybutynin chloride 5 mg. May increase to BID. or take qam plus 1/2 tab 2-3 days a week; Osteoarthritis 551633470 M19.90 right hip pain, takes OTC once in a while, encouraged increased mobility Obesity 415952074 E66.9 discussed increasing activity level to improve weight and mobility History of cerebrovascular accident 894117757 Z86.73 Continue with Plavix 75 mg. Excessive daytime sleepiness - normal night sleep 797714218 G47.19 score of 9-higher than normal daytime sleepiness ; dwp sleep habits and hygeine. does not wish to have sleep study at this time; Cough 00980889 R05 taking tessalon perles from [place] [id number] Renata Montgomery APN, ANA Perez (Adult Med) [address] [place] [address] 09/07/2018 14:15:51 09/08/2018 09:41:55 Gastroesophageal reflux disease 635294978 K21.9 cont Ranitidine 150 mg BID. Vitamin D deficiency 347 44132 E55.9 may cont replacemen t to raise and maintain level above 30 Hyperlipidemia 38712748 E78.5 Cont taking lovastatin 40 mg and fenofibrat e 160 mg Essential hypertension 58287292 I10 Continue on metoprolol tartrate 25 mg BID Female str ess incontinence 56749379 N39.3 Continue with oxybutynin chloride 5 mg. May increase to BID. or take qam plus 1/2 tab 2-3 days a week; Hyperglycemia 03551490 R 73.9 due for lab Osteoarthritis 708190069 M19.90 right hip pain, takes OTC once in a while, encouraged increased mobility Obesity 644386157 E66.9 discussed increasing activity level to improve weight and mobility History of cerebrovascular accident 391599851 Z86.73 Continue with Plavix 75 mg. Cough 27483429 R05 taking tessalon perles prn Upper resp iratory infection 64821246 J06.9 dwp to increase fluids, OTC cold med prn, rest, good handwashin g; dwp to call if not improving or if condition worsens; [id number] Renata Montgomery APN, ANA Perez (Adult Med) [address] [place] [address] 01/04/2019 15:07:52 01/05/2019 12:33:01 Essential hypertension 11884039 I10 Continue on metoprolol tartrate 25 mg BID, did not take his medication today Gastroesop hageal reflux disease 047487072 K21.9 cont Ranitidine 150 mg BID. Vitamin D deficiency 347 12434 E55.9 may cont replacemen t to raise and maintain level above 30 Hyperlipidemia 99820256 E78.5 Cont taking lovastatin 40 mg and fenofibrat e 160 mg Female str ess incontinence 46394724 N39.3 Continue with oxybutynin chloride 5 mg. May increase to BID. or take qam plus 1/2 tab 2-3 days a week; Hyperglycemia 75375982 R 73.9 due for lab Osteoarthritis 757507549 M19.90 right hip pain, takes OTC once in a while, encouraged increased mobility Obesity 965936590 E66.9 discussed increasing activity level to improve weight and mobility History of cerebrovascular accident 366991381 Z86.73 Continue with Plavix 75 mg. [id number] Renata Montgomery APN, ANA Perez (Adult Med) [address] [place] [address] 05/04/2019 11:08:01 05/05/2019 10:45:21 Administration of influenza vaccine 08726513 Z23 [facility] handout provided Influenza- like symptoms 447023135 R68.89 pt with aches and flu like symptoms, neg test Viral syndrome 741435738 B34.9 dwp to increase fluids, OTC cold med prn, rest, good handwashin g [id number] Renata Montgomery APN, FNP-C [place] (Adult Med) [address] [place] [address] 05/11/2019 14:40:21 05/19/2019 08:57:10 Dysuria 27844070 R30.0 urine dip pos leuk, will send for culture and notify pt if abx change needed, will start macrobid; dwp to increase fluids and RTO if increase in pain or fever or other changes occur. [id number] Renata Montgomery APN, FNP-C [place] (Adult Med) [address] [facility] [place] [address] 07/27/2019 12:07:39 07/28/2019 08:03:30 Acute sinusitis 22183729 J01.90 sinus pressure with purulent drainage, start bactrim Acute bronchitis 7455042 2 J20.9 rhonchi present, will cover with abx, tussin cough Gastroesop hageal reflux disease 720125060 K21.9 stopped Ranitidine 150 mg BID. d/t recall, taking otc and doing ok Female str ess incontinence 93987273 N39.3 pt stopped oxybutynin chloride as it was not helping, will send myrbetriq 25 mg qd, worse lately with coughing Essential hypertension 68164994 I10 Continue on metoprolol tartrate 25 mg BID, did take her medication today but also taking decongesta nt, dwp increase fluids and decrease sdium intake as well [id number] Renata Montgomery APN, FNP-C [place] (Adult Med) [address] [place] [address] 11/01/2019 10:54:13 11/02/2019 07:24:02 Abnormality of nail of toe 830384058 L60.8 reports she cannot cut on own anymorebil ateral edemapt declines podiatry referral at this time Edema of l ower extremity 337129090 R60.0 dwp starting water pill, pt agrees to low dosestart with half tablet hctzlow salt diet [id number] Renata Montgomery APN, ANA Perez (Adult Med) [address] [place] [address] 11/22/2019 10:31:34 11/23/2019 10:51:56 Osteoarthritis 956613699 M19.90 right hip pain, takes OTC once in a while, encouraged increased mobility Frontal headache 4436307 05 R51 right side above eye, goes away with tylenol; pt declines rx for this Allergic rhinitis 274955 04 J30.9 dwp trial antihistam ine [id number] ALISHA Samaniego [address] [place] [address] 11/24/2019 12:14:21 11/25/2019 09:25:52 Suspected COVID-19 700000091 Z03.818 D/w pt the current pandemic of COVID-19 and call for social isolation in order to blunt the curve and minimize risk and spread. Encouraged patient and family to take restrictio ns seriously. They have verbalized understand ing of such. Viral syndrome 866455873 B34.9 [id number] Renata Montgomery APN, ANA Perez (Adult Med) [address] [place] [address] 12/14/2019 08:33:16 12/15/2019 10:50:15 Dyspnea 445272667 R06.00 dwp pft advised, pt not using inhalers, r/o copd vs chf, still need echo results Hospital i npatient stay within past 30 days 0326755460 106 Z76.89 reviewed with pt; still need remaining chart records, echo? Edema of l ower extremity 526153601 R60.0 dwp starting water pill, pt agrees; legs not as swollen as they were previously , bnp elevated in hospital, likely CHF, unsure if echo done, pt believes they did, will get recordssta rt with half tablet hctzlow salt diet Abnormalit y of nail of toe 048230707 L60.8 reports she cannot cut on own anymorebil ateral edemapt declined podiatry referral in past and now wants to go [id number] Renata Montgomery APN, FNP-C [place] (Adult Med) [address] [place] [address] 03/14/2020 08:05:35 03/16/2020 16:17:41 Edema of lower extremity 411153024 R60.0 dwp starting water pill, pt agrees; legs not as swollen as they were previously , bnp elevated in hospital, likely CHF, unsure if echo done, pt believes they did, will get recordhctz not helping; will start lasixlow salt diet Hyperlipidemia 18885896 E78.5 Cont taking lovastatin 40 mg and fenofibrat e 160 mg [id number] Renata Montgomery APN, FNP-C [facility] (Adult Med) [address] [place] [address] 05/03/2020 08:10:01 05/04/2020 14:45:54 Edema of lower extremity 309078292 R60.0 BNP improved on recent lab down from 1600 to 160cont lasix to 40 mg, along with K 10 mEq low salt diet Hyperlipidemia 17830672 E78.5 Cont taking lovastatin 40 mg and fenofibrat e 160 mg Essential hypertension 32414564 I10 Continue on metoprolol tartrate 25 mg BID, dwp increase fluids and decrease sodium intake as well Gastroesop hageal reflux disease 829693623 K21.9 stopped Ranitidine 150 mg BID. d/t recall, taking otc and doing ok Overactive urinary bladder 179662064 N32.81 cont oxybutynin 5 mg bid [id number] Renata Montgomery APN, FNP-C [place] (Adult Med) [address] [facility] [place] [address] 07/17/2020 08:30:45 07/19/2020 08:08:19 Edema of lower extremity 764539398 R60.0 BNP improved on last labcont lasix to 40 mg, along with K 10 mEq low salt diet Hyperlipidemia 16149935 E78.5 Cont taking lovastatin 40 mg and fenofibrat e 160 mg Essential hypertension 11275081 I10 Continue on metoprolol tartrate 25 mg BID, dwp increase fluids and decrease sodium intake as well Gastroesop hageal reflux disease 463519183 K21.9 stopped Ranitidine 150 mg BID. d/t recall, taking otc and doing ok Overactive urinary bladder 200644272 N32.81 cont oxybutynin 5 mg bid Vitamin D deficiency 347 81334 E55.9 may cont replacemen t to raise and maintain level above 30 [id number] IVAN [facility] 14 [address] [facility] [place] [address] 07/24/2020 12:03:04 07/24/2020 16:16:19 Administration of SARS-CoV-2 antigen vaccine 456328287 Z23 [id number] IVAN [facility] 14 IM [address] [facility] [place] [address] 08/21/2020 11:47:18 08/23/2020 09:50:22 Administration of SARS-CoV-2 antigen vaccine 542561484 Z23 [id number] Renata Montgomery APN, ANA Perez (Adult Med) [address] [facility] [place] [address] 09/26/2020 11:51:06 09/27/2020 09:30:55 Edema of lower extremity 053490005 R60.0 BNP improved on last lab cont lasix to 40 mg, along with K 10 mEq low salt diet Hyperlipidemia 19230689 E78.5 Cont taking lovastatin 40 mg and fenofibrat e 160 mg Essential hypertension 60262703 I10 meets JNC8 guidelines for age Continue on metoprolol tartrate 25 mg BID, dwp increase fluids and decrease sodium intake as well Gastroesop hageal reflux disease 565026819 K21.9 stopped Ranitidine 150 mg BID. d/t recall, taking otc and doing ok Overactive urinary bladder 872544734 N32.81 cont oxybutynin 5 mg qd; Vitamin D deficiency 347 89240 E55.9 may cont replacemen t to raise and maintain level above 30 [id number] Renata Montgomery APN, ANA Perez (Adult Med) [address] [place] [address] 12/29/2020 09:34:55 01/02/2021 08:25:46 Edema of lower extremity 151340566 R60.0 BNP improved on last lab cont lasix to 40 mg, along with K 10 mEq low salt diet Hyperlipidemia 63837811 E78.5 Cont taking lovastatin 40 mg and fenofibrat e 160 mg Essential hypertension 91620064 I10 meets JNC8 guidelines for age Continue on metoprolol tartrate 25 mg BID, dwp increase fluids and decrease sodium intake as well Gastroesop hageal reflux disease 733750866 K21.9 stopped Ranitidine 150 mg BID. d/t recall, taking otc and doing ok Overactive urinary bladder 735124843 N32.81 cont oxybutynin 5 mg qd; wants to go back to bid dosing Vitamin D deficiency 347 36949 E55.9 may cont replacemen t to raise and maintain level above 30 Cough 15717243 R05 taking tessalon perles prndwp getting covid testing [id number] ALISHA Samaniego [address] [place] [address] 12/29/2020 10:41:49 12/29/2020 14:05:11 Viral syndrome 787504761 B34.9 D/w pt the current pandemic of COVID-19 and call for social isolation in order to blunt the curve and minimize risk and spread. Encouraged patient and family to take restrictio ns seriously. They have verbalized understand ing of such. [id number] Renata Montgomery APN, [employer] [facility] (Adult Med) [address] [place] [address] 04/02/2021 09:18:13 04/06/2021 10:10:37 Edema of lower extremity 216336560 R60.0 BNP improved on last lab cont lasix to 40 mg, along with K 10 mEq low salt diet Hyperlipidemia 00764755 E78.5 Cont taking lovastatin 40 mg and fenofibrat e 160 mg Essential hypertension 53978445 I10 meets JNC8 guidelines for age; Continue on metoprolol tartrate 25 mg BID, dwp increase fluids and decrease sodium intake as well Gastroesop hageal reflux disease 651618825 K21.9 stopped Ranitidine 150 mg BID. d/t recall, taking otc and doing ok Overactive urinary bladder 247289532 N32.81 cont oxybutynin 5 mg qd; wants to go back to bid dosing Vitamin D deficiency 347 18768 E55.9 may cont replacemen t to raise and maintain level above 30 Obesity 509366240 E66.9 discussed increasing activity level to improve weight and mobility [id number] Uday Merritt MA [facility] (Adult Med) [address] [place] [address] 05/10/2021 10:40:44 05/11/2021 08:47:00 Administration of SARS-CoV-2 mRNA vaccine 0164359614 Z23 [id number] Renata Montgomery APN, FNP-C [place] (Adult Med) [address] [place] [address] 08/21/2021 09:25:59 08/22/2021 07:36:32 Edema of lower extremity 529500459 R60.0 BNP improved on last lab cont lasix to 40 mg, along with K 10 mEq low salt diet Hyperlipidemia 07487973 E78.5 Cont taking lovastatin 40 mg and fenofibrat e 160 mg Essential hypertension 44938282 I10 meets JNC8 guidelines for age; Continue on metoprolol tartrate 25 mg BID, dwp increase fluids and decrease sodium intake as well Gastroesop hageal reflux disease 282512612 K21.9 stopped Ranitidine 150 mg BID. d/t recall, taking otc and doing ok Overactive urinary bladder 354372544 N32.81 cont oxybutynin 5 mg qd; wants to go back to bid dosing Vitamin D deficiency 347 46207 E55.9 may cont replacemen t to raise and maintain level above 30 Obesity 626414863 E66.9 discussed increasing activity level to improve weight and mobility Mild memor y disturbance 199096983 R41.3 dwp taking prevagen or like substance; [id number] Renata Montgomery APN, FNP-C [place] (Adult Med) [address] [place] [address] 11/21/2021 09:18:07 11/22/2021 09:47:04 Edema of lower extremity 767787189 R60.0 BNP improved on last lab cont lasix to 40 mg, along with K 10 mEq low salt diet Hyperlipidemia 72334473 E78.5 Cont taking lovastatin 40 mg and fenofibrat e 160 mg Essential hypertension 02167783 I10 meets JNC8 guidelines for age; Continue on metoprolol tartrate 25 mg BID, dwp increase fluids and decrease sodium intake as well Gastroesop hageal reflux disease 523833904 K21.9 stopped Ranitidine 150 mg BID. d/t recall, taking otc and doing ok Overactive urinary bladder 228781352 N32.81 cont oxybutynin 5 mg qd; wants to go back to bid dosing; still leaking a lot, will change to ER doing and 10 mg; offered urology referral, Vitamin D deficiency 347 78207 E55.9 may cont replacemen t to raise and maintain level above 30 Obesity 950176264 E66.9 discussed increasing activity level to improve weight and mobility Mild memor y disturbance 023974782 R41.3 dwp taking prevagen or like substance; [id number] Leanna Perez (Adult Med) [address] [place] [address] 11/29/2021 10:09:29 12/03/2021 12:46:15 Administration of SARS-CoV-2 mRNA vaccine 9108391207 Z23 [id number] Renata Montgomery APN, [employer] [facility] (Adult Med) [address] [place] [address] 02/21/2022 09:31:22 02/22/2022 07:35:32 Edema of lower extremity 550449685 R60.0 BNP improved on last lab cont lasix to 40 mg, along with K 10 mEq low salt diet Hyperlipidemia 16297696 E78.5 Cont taking lovastatin 40 mg and fenofibrat e 160 mg Essential hypertension 30463586 I10 meets JNC8 guidelines for age; saw cardio 01/25/22 Continue on metoprolol tartrate 25 mg BID, dwp increase fluids and decrease sodium intake as well Gastroesop hageal reflux disease 267145517 K21.9 stopped Ranitidine 150 mg BID. d/t recall, taking otc and doing ok Overactive urinary bladder 477740566 N32.81 cont oxybutynin 5 mg qd; wants to go back to bid dosing; still leaking a lot, will change to ER doing and 10 mg; offered urology referral, Vitamin D deficiency 347 11443 E55.9 may cont replacemen t to raise and maintain level above 30 Obesity 792631533 E66.9 discussed increasing activity level to improve weight and mobility Mild memor y disturbance 093419553 R41.3 dwp taking prevagen or like substance; [id number] [facility] [address] [place] [address] 04/10/2022 10:30:23 04/11/2022 13:53:40 Administration of influenza vaccine 62011796 Z23 [facility] handout provided [id number] Renata Montgomery APN, ANA Perez (Adult Med) [address] [facility] [place] [address] 08/22/2022 10:18:17 08/26/2022 14:20:38 Edema of lower extremity 699878526 R60.0 cont lasix to 40 mg, along with K 10 mEq low salt diet Hyperlipidemia 68857359 E78.5 Cont taking lovastatin 40 mg and fenofibrat e 160 mg Essential hypertension 24549964 I10 meets JNC8 guidelines for age; saw cardio 01/25/22 Continue on metoprolol tartrate 25 mg BID, dwp increase fluids and decrease sodium intake as well Gastroesop hageal reflux disease 111614052 K21.9 stopped Ranitidine 150 mg BID. d/t recall, taking otc and doing ok Overactive urinary bladder 789903871 N32.81 cont oxybutynin 5 mg qd; wants to go back to bid dosing; still leaking a lot, will change to ER doing and 10 mg; offered urology referral, Vitamin D deficiency 347 91225 E55.9 may cont replacemen t to raise and maintain level above 30 Obesity 362489078 E66.9 discussed increasing activity level to improve weight and mobility Mild memor y disturbance 644244914 R41.3 dwp taking prevagen or like substance; Acute bronchitis 1251291 2 J20.9 rhonchi present, will cover with abx, tussin cough [id number] Renata Montgomery APN, ANA [facility] (Adult Med) [address] [place] [address] 02/25/2023 11:05:52 03/03/2023 14:23:06 Edema of lower extremity 518660967 R60.0 cont lasix to 40 mg, along with K 10 mEq low salt diet Hyperlipidemia 86160337 E78.5 Cont taking lovastatin 40 mg and fenofibrat e 160 mg Essential hypertension 74833976 I10 meets JNC8 guidelines for age; Continue on metoprolol tartrate 25 mg BID, dwp increase fluids and decrease sodium intake as well Gastroesop hageal reflux disease 941650635 K21.9 stopped Ranitidine 150 mg BID. d/t recall, taking otc and doing ok Overactive urinary bladder 364597352 N32.81 cont oxybutynin 5 mg qd; wants to go back to bid dosing; still leaking a lot, will change to ER doing and 10 mg; offered urology referral, pt declines but will increase to 15 mg Vitamin D deficiency 347 13258 E55.9 may cont replacemen t to raise and maintain level above 30 Obesity 171658972 E66.9 discussed increasing activity level to improve weight and mobility Mild memor y disturbance 624421763 R41.3 dwp taking prevagen or like substance; [id number] Renata Montgomery APN, [employer] [facility] (Adult Med) [address] [place] [address] 08/26/2023 11:15:33 08/28/2023 09:28:06 Essential hypertension 71823054 I10 meets JNC8 guidelines for age Continue on metoprolol tartrate 25 mg BID, dwp increase fluids and decrease sodium intake as well Edema of l ower extremity 105363286 R60.0 cont lasix to 40 mg, along with K 10 mEq low salt diet Hyperlipidemia 70069726 E78.5 Cont taking lovastatin 40 mg and fenofibrat e 160 mg Gastroesop hageal reflux disease 673330928 K21.9 stopped Ranitidine 150 mg BID. d/t recall, taking otc and doing ok Overactive urinary bladder 660896409 N32.81 cont oxybutynin 15 mg qd; wants to go back to bid dosing; still leaking a lot, offered urology referral, pt declines Vitamin D deficiency 347 06575 E55.9 may cont replacemen t to raise and maintain level above 30 Obesity 445967647 E66.9 discussed increasing activity level to improve weight and mobility Mild memor y disturbance 023970930 R41.3 dwp taking prevagen or like substance; Excessive daytime sleepiness - normal night sleep 806161294 G47.19 score of 9-higher than normal daytime sleepiness ; dwp sleep habits and hygeine. does not wish to have sleep study at this time;pt showed genet from phone, is getting good sleep, last night got 11 hours [id number] Renata Montgomery APN, [employer] [facility] (Adult Med) [address] [place] [address] 11/27/2023 11:10:53 11/28/2023 16:15:02 Acquired trigger finger of right middle finger [id number] 74640 M65.331 Conservati ve Management :Rest: Advise patient to limit activities that exacerbate symptoms.S plinting: Recommend using a finger splint to immobilize the affected finger, particular ly at night.NSAI Ds: Prescribe nonsteroid al anti-infla mmatory drugs (e.g., ibuprofen) to reduce pain and inflammati on.Ice Therapy: Apply ice to the affected area for 15-20 minutes several times a day to alleviate swelling. Corticoste roid Injection: If conservati ve management is insufficie nt, consider a corticoste roid injection into the tendon sheath. This can reduce inflammati on and relieve symptoms. Essential hypertension 70612439 I10 meets JNC8 guidelines for age Continue on metoprolol tartrate 25 mg BID, dwp increase fluids and decrease sodium intake as well Edema of l ower extremity 984791829 R60.0 cont lasix to 40 mg, and 20 mg along with K 10 mEq low salt diet Hyperlipidemia 98554936 E78.5 Cont taking lovastatin 40 mg and fenofibrat e 160 mg Gastroesop hageal reflux disease 980866049 K21.9 stopped Ranitidine 150 mg BID. d/t recall, taking otc and doing ok Overactive urinary bladder 264297291 N32.81 cont oxybutynin 15 mg qd; wants to go back to bid dosing; still leaking a lot, offered urology referral, pt declines Vitamin D deficiency 347 01119 E55.9 may cont replacemen t to raise and maintain level above 30 Obesity 399637388 E66.9 discussed increasing activity level to improve weight and mobility Mild memor y disturbance 809536247 R41.3 dwp taking prevagen or like substance; Excessive daytime sleepiness - normal night sleep [id number] G47.19 pt showed genet from phone, is getting good sleep, last night got 11 hours [id number] Renata Montgomery APN, ASSEMBLER SHOW MOTOR-C Chris (Adult Med) [address] [place] [address] 03/29/2024 10:43:33 04/01/2024 16:25:09 Acquired trigger finger of right middle finger [id number] M65.331 Conservati ve Management :Rest: Advise patient to limit activities that exacerbate symptoms.S plinting: Recommend using a finger splint to immobilize the affected finger, particular ly at night.NSAI Ds: Prescribe nonsteroid al anti-infla mmatory drugs (e.g., ibuprofen) to reduce pain and inflammati on.Ice Therapy: Apply ice to the affected area for 15-20 minutes several times a day to alleviate swelling. Corticoste roid Injection: If conservati ve management is insufficie nt, consider a corticoste roid injection into the tendon sheath. This can reduce inflammati on and relieve symptoms. Essential hypertension 59243052 I10 meets JNC8 guidelines for age Continue on metoprolol tartrate 25 mg BID, decrease sodium intake as well Edema of l ower extremity 871136137 R60.0 cont lasix to 40 mg, and 20 mg along with K 10 mEq low salt diet Hyperlipidemia 45750110 E78.5 Cont taking lovastatin 40 mg and fenofibrat e 160 mg Gastroesop hageal reflux disease 322419930 K21.9 stopped Ranitidine 150 mg BID. d/t recall, taking otc and doing ok Overactive urinary bladder 563728670 N32.81 cont oxybutynin 15 mg qd; wants to go back to bid dosing; still leaking a lot, offered urology referral, pt declines Vitamin D deficiency 347 75209 E55.9 may cont replacemen t to raise and maintain level above 30 Obesity 153748089 E66.9 discussed increasing activity level to improve weight and mobility Mild memor y disturbance 973619838 R41.3 dwp taking prevagen or like substance; Excessive daytime sleepiness - normal night sleep 761583071 G47.19 pt showed genet from phone, is getting good sleep, last night got 11 hours Administra tion of influenza vaccine [id number] Z23 cdc handout provided [id number] Renata Montgomery APN, JUN-C Chris (Adult Med) [address] [place] [address] 08/02/2024 11:11:59 08/04/2024 16:13:57 Acquired trigger finger of right middle finger [id number] M65.331 Conservati ve Management :Rest: Advise patient to limit activities that exacerbate symptoms.S plinting: Recommend using a finger splint to immobilize the affected finger, particular ly at night.NSAI Ds: Prescribe nonsteroid al anti-infla mmatory drugs (e.g., ibuprofen) to reduce pain and inflammati on.Ice Therapy: Apply ice to the affected area for 15-20 minutes several times a day to alleviate swelling. Corticoste roid Injection: If conservati ve management is insufficie nt, consider a corticoste roid injection into the tendon sheath. This can reduce inflammati on and relieve symptoms. pt was called to make an apt but did not feel good so she did not go; would like new referral now Essential hypertension 03377733 I10 meets JNC8 guidelines for age Continue on metoprolol tartrate 25 mg BID, decrease sodium intake as well Edema of l ower extremity 222254636 R60.0 cont lasix to 40 mg, and 20 mg along with K 10 mEq low salt diet Hyperlipidemia 17668050 E78.5 Cont taking lovastatin 40 mg and fenofibrat e 160 mg Gastroesop hageal reflux disease 867424393 K21.9 stopped Ranitidine 150 mg BID. d/t recall, taking otc and doing ok Overactive urinary bladder 012420964 N32.81 cont oxybutynin 15 mg qd; wants to go back to bid dosing; still leaking a lot, offered urology referral, pt declines Vitamin D deficiency 347 51713 E55.9 may cont replacemen t to raise and maintain level above 30 Obesity 787378718 E66.9 discussed increasing activity level to improve weight and mobility Mild memor y disturbance 910397778 R41.3 dwp taking prevagen or like substance; Excessive daytime sleepiness - normal night sleep 907855002 G47.19 pt showed genet from phone, is getting good sleep, last night got 11 hours Administra tion of SARS-CoV-2 mRNA vaccine [id number] Z23 Health Concerns Section Related Observation LastModified by Organization Stephen coreas LastModified Time None Recorded Concern Status LastModified by Organization Details LastModified Time None Recorded Advance Directives Directive N: Payers Encounter Date Sequence Insurance Name Policy Number Policy Siddiqui Covered Member ID Siddiqui Member ID Guarantor Name 02/25/2023 1 [employer] (MEDICARE REPLACEMENT/AD VANTAGE - HMO) [id number] Dianna Arana [id number] Dianna Arana 08/26/2023 1 [employer] (MEDICARE REPLACEMENT/AD VANTAGE - HMO) [id number] Dianna Arana [id number] Dianna Arana 11/27/2023 1 [employer] (MEDICARE REPLACEMENT/AD VANTAGE - HMO) [id number] Dianna Arana [id number] Dianna Arana 03/29/2024 1 [facility] (MEDICARE REPLACEMENT/AD VANTAGE - HMO) [id number] Dianna Arana [id number] Dianna Arana 08/02/2024 1 [employer] (MEDICARE REPLACEMENT PPO) [id number] Dianna Arana [id number] Dianna Arana 08/02/2024 2 *SELF PAY* Yokasta Arana Notes Date Note Type Note Provider Name and Address Organization Details Recorded Time 3 text/html HyperlipidemiaReported bypatient.Type of hyperlipidemia:combined Duration:chronic Control:at goal Compliance:compliant;noncom pliant with diet;does not exercise Complications:no coronary artery diseaseHypertension F/UReported bypatient.Associated Symptoms:no dizziness; no lightheadedness; no chest pain; no shortness of breath; no palpitations; no edema; no calf pain with exertion Lifestyle:limiting/avoiding salt;not exercising regularly Medications:taking medications as directed; no side effects from medicationReflux/GERDReport ed bypatient.SymptomsAsymptoma tic; currently ranitidine and not having symptoms Severity:improving Onset/Timing:gone now Associated Symptoms:no frequent coughing; no nausea; no vomiting; no regurgitation; no shortness of breath; no chest pain; no heartburn; no difficulty swallowing no sob or increased fatigue or cp; denies chest pain; not using inhaler at all, walking with cane when she wants to but not all the time still leaking urine when she stands up from a sitting position or at sleep Renata Montgomery APN, FNP-C Attn: Accounting,[address] [facility], [place], [address], [facility] 02/25/2023 11:39:33 4 text/html HyperlipidemiaReported bypatient.Type of hyperlipidemia:combined Duration:chronic Control:at goal Compliance:compliant;noncom pliant with diet;does not exercise Complications:no coronary artery diseaseHypertension F/UReported bypatient.Associated Symptoms:no dizziness; no lightheadedness; no chest pain; no shortness of breath; no palpitations; no edema; no calf pain with exertion Lifestyle:limiting/avoiding salt;not exercising regularly Medications:taking medications as directed; no side effects from medicationReflux/GERDReport ed bypatient.SymptomsAsymptoma tic; currently ranitidine and not having symptoms Severity:improving Onset/Timing:gone now Associated Symptoms:no frequent coughing; no nausea; no vomiting; no regurgitation; no shortness of breath; no chest pain; no heartburn; no difficulty swallowing no sob or increased fatigue or cp;denies chest pain; not using inhaler at all, walking with cane when she wants to but not all the timestill leaking urine when she stands up from a sitting position or at sleep pt c/o feet swelling for a week- can barely fit into shoespt would like sleeping aid, having issues falling asleep- tried melatonin and benadryl and they do not help. states she has been sleeping more during the day Renata Montgomery APN, FNP-C Attn: Accounting,[address] [facility], [place], [address], [facility] 08/26/2023 18:02:25 4 text/html HyperlipidemiaReported bypatient.Type of hyperlipidemia:combined Duration:chronic Control:at goal Compliance:compliant;noncom pliant with diet;does not exercise Complications:no coronary artery diseaseHypertension F/UReported bypatient.Associated Symptoms:no dizziness; no lightheadedness; no chest pain; no shortness of breath; no palpitations; no edema; no calf pain with exertion Lifestyle:limiting/avoiding salt;not exercising regularly Medications:taking medications as directed; no side effects from medicationReflux/GERDReport ed bypatient.SymptomsAsymptoma tic; currently ranitidine and not having symptoms Severity:improving Onset/Timing:gone now Associated Symptoms:no frequent coughing; no nausea; no vomiting; no regurgitation; no shortness of breath; no chest pain; no heartburn; no difficulty swallowing The patient presents with complaints of pain, stiffness, and a locking sensation in the right middle finger. . Symptoms have been progressively worsening over the past week. The patient reports difficulty in flexing and extending the affected finger(s), often requiring the use of the opposite hand to unlock the finger(s). Pain is described as sharp and is localized at the base of the affected finger(s). There is noticeable swelling and tenderness in the area. No known history of trauma or injury to the hand. Has tried using metal splint but not helping much. no sob or increased fatigue or cp;denies chest pain; not using inhaler at all, walking with cane when she wants to but not all the timestill leaking urine when she stands up from a sitting position or at sleep Renata Montgomery APN, ASSEMBLER SHOW MOTOR-C Attn: Accounting,[address] [place] [address], [address], [place] - [facility] 11/27/2023 12:06:35 4 text/html HyperlipidemiaReported bypatient.Type of hyperlipidemia:combined Duration:chronic Control:at goal Compliance:compliant;noncom pliant with diet;does not exercise Complications:no coronary artery diseaseHypertension F/UReported bypatient.Associated Symptoms:no dizziness; no lightheadedness; no chest pain; no shortness of breath; no palpitations; no edema; no calf pain with exertion Lifestyle:limiting/avoiding salt;not exercising regularly Medications:taking medications as directed; no side effects from medicationReflux/GERDReport ed bypatient.SymptomsAsymptoma tic; currently ranitidine and not having symptoms Severity:improving Onset/Timing:gone now Associated Symptoms:no frequent coughing; no nausea; no vomiting; no regurgitation; no shortness of breath; no chest pain; no heartburn; no difficulty swallowing The patient presents with complaints of pain, stiffness, and a locking sensation in the right middle finger. . Symptoms have been progressively worsening over the past week. The patient reports difficulty in flexing and extending the affected finger(s), often requiring the use of the opposite hand to unlock the finger(s). Pain is described as sharp and is localized at the base of the affected finger(s). There is noticeable swelling and tenderness in the area. No known history of trauma or injury to the hand. Has tried using metal splint but not helping much. no sob or increased fatigue or cp;denies chest pain; not using inhaler at all, walking with cane when she wants to but not all the timestill leaking urine when she stands up from a sitting position or at sleep Renata Montgomery APN, FNP-C Attn: Accounting,[address] [place], [address], [facility] 03/30/2024 14:11:08 5 text/html HyperlipidemiaReported bypatient.Type of hyperlipidemia:combined Duration:chronic Control:at goal Compliance:compliant;noncom pliant with diet;does not exercise Complications:no coronary artery diseaseHypertension F/UReported bypatient.Associated Symptoms:no dizziness; no lightheadedness; no chest pain; no shortness of breath; no palpitations; no edema; no calf pain with exertion Lifestyle:limiting/avoiding salt;not exercising regularly Medications:taking medications as directed; no side effects from medicationReflux/GERDReport ed bypatient.SymptomsAsymptoma tic; currently ranitidine and not having symptoms Severity:improving Onset/Timing:gone now Associated Symptoms:no frequent coughing; no nausea; no vomiting; no regurgitation; no shortness of breath; no chest pain; no heartburn; no difficulty swallowing states she has not been taking a lot of meds because she has not had the energy to find them and put them in her pill calendar. states all she does is sleep and feeling fatigue. states it started in Mar but has not got harder to get around. pt states she has a cough on and off- has been taking dayquil- wondering if she can have a covid shot Renata Montgomery APN, FNP-C Attn: Accounting,[address], [place], [address], [place] [facility] 08/03/2024 10:34:55 OBGyn Episode No OBEpisode recorded.
== END 2024-09-14 10:37 | disposition home or self-care (01) ==
PROVIDERS: PCP Nurse Practitioner Family; Visit Provider Plastic Surgery
DX: M65.331 Trigger finger, right middle finger (principal)
CPT/HCPCS: 73130

== ENCOUNTER 2024-09-17 09:20 | Outpatient (CLI) | payer MEDICARE, SELFPAY ==
--- OUTSIDE RECORDS SUMMARY | 2024-09-17 09:56 | XMS_ITS | Clinical Summary ---
Author Organization [facility] [address] [facility] Address [address] [address] Care Team Providers Care Watch Dial Stoner Name Role Phone Miscellaneous, Not In File Unavailable Unava ilable Violeta, Renata Cisneros BANQUET SUPERVISOR Primary Care Provider + [phone] Allergies Active Allergy Reactions Criticality Noted Date [...] Description 09/08/2024 2:45 PM CDT Office Visit [facility] [address] [place] [address] [address] [address] Rebel Villalba NP Right hand pain (Primary Dx); Contracture of joint of finger of right hand 09/08/2024 7:50 AM CDT - 09/08/2024 11:59 PM CDT Hospital Encounter [facility] [address] [place] [address] [address] [place] [address] Discharge Disposition: Discharge to home or self care 09/08/2024 Telephone [facility] [address] [place] [address] [address] [place] [phone] Rebel Villalba NP 09/08/2024 Orders Only [facility] [address] [place] [address] [address] [place] [phone] Rebel Villalba NP Right hand pain (Primary [...] on file Legal Sex Female 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 Rebel Villalba BANQUET SUPERVISOR IMG XR PROCEDURES Final Result from Last 3 Months Insurance MDCR HMO REF [facility] MEDICARE Address: [address] MEDICARE ADVANTAGE [facility] MEDICARE Address: [place] [address] [employer] MED[employer]ARE Advance Directives For more information, please contact: [phone] * Full Code (Latest Code Status on File) Date Activated Date Inactivated Comments 11/30/2019 10:34 PM 12/03/2019 10:43 PM Care Teams Watch Dial Stoner Relationship Specialty Start Date End Date Violeta, Renata Cisneros NP [address] [place] [address] PCP - General Nurse Practitioner 09/25/21 Miscellaneous, Not In File 12/03/19
--- OUTSIDE RECORDS SUMMARY | 2024-09-17 09:56 | XMS_ITS | Data Portability ---
Author Organization [facility] Address [address] [place] [address] Care Team Providers Care Nail Tech Name Role Phone RENATA MONTGOMERY Primary Care Provider Unavailabl e Assessment No assessment recorded. Plan of Treatment Reminders Order Date Submit Date Provider Last Modified By Organization Details Last Modified Time Details Appointments ANY 15 2024 10:00A M Renata Montgomery, HAND PRINTED CIRCUIT BOARD ASSEMBLER, BRYOLOGIST-C Not available Not available Not available Lab lipid panel, serum 2023 024 [facility], [address] [place] [address], [id number], 03/30/2024 08:24:25 BMP, serum or plasma 2023 024 [facility], [address] [place] [address], [id number], 03/30/2024 08:24:27 CBC w/ auto diff 2023 024 [facility], [address] [place] [address], [place], [address], 03/30/2024 08:24:28 lipid panel, serum 2023 024 [facility], [address] [place] [address], [id number], 08/27/2023 03:08:30 BNP (B-type natriur etic peptide ), serum or plasma 2023 024 [facility], [address] [place] [address], [id number], 08/27/2023 10:37:18 CMP, serum or plasma 2023 024 [facility], [address] [place] [address] 2, [place], [address], 08/27/2023 03:08:31 CBC 2023 024 [facility], [address] [place] [address] 2, [place], [address], 08/27/2023 03:08:32 Referral hand surgeon referra l 2024 025 [facility], [address], [place], [address], 08/19/2024 11:28:12 hand surgeon referra l 2023 024 [email or web address] Rogers MD, 2 [facility], [facility] [address], [place], [address], 05/25/2024 16:44:56 Procedures None recorde d. Surgeries None recorde d. Imaging None recorde d. Medication Orders oxybuty uri chlorid e ER 15 mg tablet, extende d release 24 hr 2023 024 [facility]64603, [address] [place], [place], [id number], 08/02/2024 11:32:32 oxybuty uri chlorid e ER 15 mg tablet, extende d release 24 hr 2023 024 [email or web address]25009, [address], [place], [id number], 11/27/2023 11:59:09 oxybuty uri chlorid e ER 15 mg tablet, extende d release 24 hr 2023 024 [facility] #27439, [address], [place], [id number], 08/26/2023 12:08:44 oxybuty uri chlorid e ER 15 mg tablet, extende d release 24 hr 2022 09/05/2 023 [facility]71959, [address], [place], [id number], 02/25/2023 11:35:35 Patient TargetsNo targets recorded. Patient Instructions Encounter Date Encounter Id Patient Instructions Last Modified By Organization Details Last Modified Time 02/25/2023 [id number] gastroesophageal reflux disease (GERD): care instructions Not [...] care: none Not available 02/25/2023 11:23:03 08/26/2023 [id number] gastroesophageal reflux disease (GERD): care instructions Not [...] care: none Not available 08/26/2023 11:55:47 11/27/2023 [id number] gastroesophageal reflux disease (GERD): care instructions Not [...] care: none Not available 11/27/2023 12:01:27 03/29/2024 [id number] influenza (flu) vaccine: care instructions Not available [...] care: none Not available 03/29/2024 11:04:08 08/02/2024 [id number] gastroesophageal reflux disease (GERD): care instructions Not [...] right middle finger Referring Physician: Renata Montgomery [facility] Medicine, Encounter Date: 03/29/2024 Hand Surgeon Referral for Ac quired trigger finger of right middle finger Referring Physician: Renata Montgomery [facility] Brett, Encounter Date: 08/02/2024 Results Created Date Observation Date Name Description Value Unit Range Abnormal Flag Note LastModifiedBy Organization Detail LastModifiedTime 08/26/1908/26/2023 LIPID PANEL cholesterol, total 125 mg/dL 100-19 9 Not Available [facility] Department [address] [place], [address], 08/27/2023 03:08:30 08/26/1908/26/2023 LIPID PANEL triglyceride s 107 mg/dL 0-149 Not Available [facility] Department [address] [place], [address], 08/27/2023 03:08:30 08/26/19 24 08/26/2023 LIPID PANEL HDL cholesterol 58 mg/dL 40-999 Not Available [facility] Department [address] [place], [address], 08/27/2023 03:08:30 08/26/19 24 08/26/2023 LIPID PANEL VLDL cholesterol oscar 21 mg/dL 5-40 Not Available [facility] Department [address] [place], [address], 08/27/2023 03:08:30 08/26/19 24 08/26/2023 LIPID PANEL LDL chol calc (nih) 60 mg/dL 0-99 Not Available [facility] Department [address] [place], [address], 08/27/2023 03:08:30 08/26/19 24 08/26/2023 COMP. METAB OLIC PANEL (14) glucose 109 mg/dL 70-99 above high normal Not Available [facility] Department [address] [place], [address], 08/27/2023 03:08:31 08/26/19 24 08/26/2023 COMP. METAB OLIC PANEL (14) BUN 24 mg/dL 8-27 Not Available [facility] Department [address] [place], [address], 08/27/2023 03:08:31 08/26/19 24 08/26/2023 COMP. METAB OLIC PANEL (14) creatinine 0.96 mg/dL 0.76-1 .27 Not Available [facility] Department [address] [place] [address], [address], 08/27/2023 03:08:31 08/26/19 24 08/26/2023 COMP. METAB [...] disre anca that value . Not Available [facility] Department [address] [place] [address], [address], 08/27/2023 03:08:31 08/26/19 24 08/26/2023 COMP. METAB OLIC PANEL (14) BUN/creatini ne ratio 25 10-28 Not Available [facility] Department [address] [place], [address], 08/27/2023 03:08:31 08/26/19 24 08/26/2023 COMP. METAB OLIC PANEL (14) sodium 143 mmol/ L 134-14 4 Not Available [facility] Department [address] [place] [address], [address], 08/27/2023 03:08:31 08/26/19 24 08/26/2023 COMP. METAB OLIC PANEL (14) potassium 4.2 mmol/ L 3.5-5. 2 Not Available [facility] Department [address] [place] [address], [address], 08/27/2023 03:08:31 08/26/19 24 08/26/2023 COMP. METAB OLIC PANEL (14) chloride 102 mmol/ L 96-106 Not Available [facility] Department [address] [place] [address], [address], 08/27/2023 03:08:31 08/26/19 24 08/26/2023 COMP. METAB OLIC PANEL (14) carbon dioxide, total 30 mmol/ L 20-29 above high normal Not Available [facility] Department [address] [place] [address], [address], 08/27/2023 03:08:31 08/26/19 24 08/26/2023 COMP. METAB OLIC PANEL (14) calcium 10.0 mg/dL 8.7-10 .3 Not Available [facility] Department [address] [place] [address], [address], 08/27/2023 03:08:31 08/26/19 24 08/26/2023 COMP. METAB OLIC PANEL (14) protein, total 6.5 g/dL 6.0-8. 5 Not Available [facility] Department [address] [place] [address], [address], 08/27/2023 03:08:31 08/26/19 24 08/26/2023 COMP. METAB OLIC PANEL (14) albumin 3.9 g/dL 3.7-4. 7 Not Available [facility] Department [address] [place] [address], [address], 08/27/2023 03:08:31 08/26/19 24 08/26/2023 COMP. METAB OLIC PANEL (14) globulin, total 2.6 g/dL 1.5-4. 5 Not Available [facility] Department [address] [place], [address], 08/27/2023 03:08:31 08/26/19 24 08/26/2023 COMP. METAB OLIC PANEL (14) A/G ratio 1.0 1.2-2. 2 below low normal Not Available [facility] Department [address] [place], [address], 08/27/2023 03:08:31 08/26/19 24 08/26/2023 COMP. METAB OLIC PANEL (14) bilirubin, total 0.5 mg/dL 0.0-1. 2 Not Available [facility] Department [address] [place], [address], 08/27/2023 03:08:31 08/26/19 24 08/26/2023 COMP. METAB OLIC PANEL (14) alkaline phosphatase 27 IU/L 44-121 below low normal Not Available [facility] Department [address] [place] [address], [address], 08/27/2023 03:08:31 08/26/19 24 08/26/2023 COMP. METAB OLIC PANEL (14) AST (SGOT) 26 IU/L 0-40 Not Available [facility] Department [address] [place] [address], [address], 08/27/2023 03:08:31 08/26/19 24 08/26/2023 COMP. METAB OLIC PANEL (14) ALT (SGPT) 12 IU/L 0-32 Not Available [facility] Department [address] [place] [address], [address], 08/27/2023 03:08:31 08/26/19 24 08/26/2023 CBC, NO DIFFE RENTI AL/PL ATELE T WBC 7.1 x10e3 /uL 3.4-10 .8 Not Available [facility] Department [address] [place] [address], [address], 08/27/2023 03:08:32 08/26/19 24 08/26/2023 CBC, NO DIFFE RENTI AL/PL ATELE T RBC 4.14 x10e6 /uL 3.77-5 .28 Not Available [facility] Department [address] [place], [address], 08/27/2023 03:08:32 08/26/19 24 08/26/2023 CBC, NO DIFFE RENTI AL/PL ATELE T hemoglobin 13.1 g/dL 11.1-1 5.9 Not Available [facility] Department [address] [place], [address], 08/27/2023 03:08:32 08/26/19 24 08/26/2023 CBC, NO DIFFE RENTI AL/PL ATELE T hematocrit 41.4 % 34.0-4 6.6 Not Available [facility] Department [address] [place], [address], 08/27/2023 03:08:32 08/26/19 24 08/26/2023 CBC, NO DIFFE RENTI AL/PL ATELE T MCV 100 fL 79-97 above high normal Not Available [facility] Department [address] [place], [address], 08/27/2023 03:08:32 08/26/19 24 08/26/2023 CBC, NO DIFFE RENTI AL/PL ATELE T MCH 31.6 pg 26.6-3 3.0 Not Available [facility] Department [address] [place], [address], 08/27/2023 03:08:32 08/26/19 24 08/26/2023 CBC, NO DIFFE RENTI AL/PL ATELE T MCHC 31.6 g/dL 31.5-3 5.7 Not Available [facility] Department [address] [place], [address], 08/27/2023 03:08:32 08/26/19 24 08/26/2023 CBC, NO DIFFE RENTI AL/PL ATELE T RDW 14.6 % 11.5-1 4.5 above high normal Not Available [facility] Department [address] [place], [address], 08/27/2023 03:08:32 08/26/19 24 08/26/2023 CBC, NO DIFFE RENTI AL/PL ATELE T NRBC 0 % 0-0 Not Available [facility] Department [address] [place], [address], 08/27/2023 03:08:32 08/26/19 24 08/27/2023 B-TYP E NATRI URETI C PEPTI DE B-type natriuretic peptide 182.5 pg/mL 0.0-10 0.0 above high normal Sieme ns [facility] metho dolog y Not Available [facility] ([facility]) [address] [place], [address], 08/27/2023 10:37:18 03/29/20 24 03/30/2024 LIPID PANEL cholesterol, total 159 mg/dL 100-19 9 Not Available [facility] ([facility]) [address] [place], [address], 03/30/2024 08:24:25 03/29/20 24 03/30/2024 LIPID PANEL triglyceride s 95 mg/dL 0-149 Not Available [facility] ([facility]) [address] [place], [address], 03/30/2024 08:24:25 03/29/20 24 03/30/2024 LIPID PANEL HDL cholesterol 67 mg/dL >39 Not Available [facility]) [address] [place], [address], 03/30/2024 08:24:25 03/29/20 24 03/30/2024 LIPID PANEL VLDL cholesterol oscar 17 mg/dL 5-40 Not Available [facility] ([facility]) [address] [place], [address], 03/30/2024 08:24:25 03/29/2003/30/2024 LIPID PANEL LDL chol calc ([facility]) 75 mg/dL 0-99 Not Available [facility] ([facility]) [address] [place], [address], 03/30/2024 08:24:25 03/29/2003/30/2024 BASIC METAB OLIC PANEL (8) glucose 112 mg/dL 70-99 above high normal Not Available [facility] ([facility]) [address] [place], [address], 03/30/2024 08:24:26 03/29/2003/30/2024 BASIC METAB OLIC PANEL (8) BUN 18 mg/dL 8-27 Not Available [facility] ([facility]) [address] [place], [address], 03/30/2024 08:24:26 03/29/2003/30/2024 BASIC METAB OLIC PANEL (8) creatinine 0.83 mg/dL 0.57-1 .00 Not Available [facility] ([facility]) [address] [facility], [place], [address], 03/30/2024 08:24:26 03/29/2003/30/2024 BASIC METAB OLIC PANEL (8) eGFR 69 mL/mi n/1.7 3 >59 Not Available [facility] ([facility]) [address] [place], [address], 03/30/2024 08:24:26 03/29/2003/30/2024 BASIC METAB OLIC PANEL (8) BUN/creatini ne ratio 22 12-28 Not Available [facility] ([facility]) [address] [place], [address], 03/30/2024 08:24:26 03/29/2003/30/2024 BASIC METAB OLIC PANEL (8) sodium 143 mmol/ L 134-14 4 Not Available [facility] ([facility]) [address] [place], [address], 03/30/2024 08:24:26 03/29/2003/30/2024 BASIC METAB OLIC PANEL (8) potassium 4.3 mmol/ L 3.5-5. 2 Not Available [facility] ([facility]) [address] [place], [address], 03/30/2024 08:24:26 03/29/2003/30/2024 BASIC METAB OLIC PANEL (8) chloride 103 mmol/ L 96-106 Not Available [facility] ([facility]) [address] [facility], [place], [address], 03/30/2024 08:24:26 03/29/2003/30/2024 BASIC METAB OLIC PANEL (8) carbon dioxide, total 26 mmol/ L 20-29 Not Available [facility] ([facility]) [address] [place], [address], 03/30/2024 08:24:26 03/29/2003/30/2024 BASIC METAB OLIC PANEL (8) calcium 10.0 mg/dL 8.7-10 .3 Not Available [facility] ([facility]) [address] [place], [address], 03/30/2024 08:24:26 03/29/2003/30/2024 CBC WITH DIFFE RENTI AL/PL ATELE T WBC 7.7 x10e3 /uL 3.4-10 .8 Not Available [facility] ([facility]) [address] [place], [address], 03/30/2024 08:24:28 03/29/20 24 03/30/2024 CBC WITH DIFFE RENTI AL/PL ATELE T RBC 4.70 x10e6 /uL 3.77-5 .28 Not Available [facility] ([facility]) [address] [facility], [place], [address], 03/30/2024 08:24:28 03/29/2003/30/2024 CBC WITH DIFFE RENTI AL/PL ATELE T hemoglobin 14.5 g/dL 11.1-1 5.9 Not Available [facility] ([facility]) [address] [facility], [place], [address], 03/30/2024 08:24:28 03/29/2003/30/2024 CBC WITH DIFFE RENTI AL/PL ATELE T hematocrit 46.1 % 34.0-4 6.6 Not Available [facility] ([facility]) [address] [facility], [place], [address], 03/30/2024 08:24:28 03/29/2003/30/2024 CBC WITH DIFFE RENTI AL/PL ATELE T MCV 98 fL 79-97 above high normal Not Available [facility] ([facility]) [address] [facility], [place], [address], 03/30/2024 08:24:28 03/29/2003/30/2024 CBC WITH DIFFE RENTI AL/PL ATELE T MCH 30.9 pg 26.6-3 3.0 Not Available [facility] ([facility]) [address] [facility], [place], [address], 03/30/2024 08:24:28 03/29/2003/30/2024 CBC WITH DIFFE RENTI AL/PL ATELE T MCHC 31.5 g/dL 31.5-3 5.7 Not Available [facility] ([facility]) [address] [place], [address], 03/30/2024 08:24:28 03/29/2003/30/2024 CBC WITH DIFFE RENTI AL/PL ATELE T RDW 12.0 % 11.7-1 5.4 Not Available [facility] ([facility]) [address] [facility], [place], [address], 03/30/2024 08:24:28 03/29/20 24 03/30/2024 CBC WITH DIFFE RENTI AL/PL ATELE T platelets 257 x10e3 /uL 150-45 0 Not Available [facility] ([facility]) [address] [facility], [place], [address], 03/30/2024 08:24:28 03/29/2003/30/2024 CBC WITH DIFFE RENTI AL/PL ATELE T neutrophils 64 % notest ab. Not Available [facility] ([facility]) [address] [facility], [place], [address], 03/30/2024 08:24:28 03/29/20 24 03/30/2024 CBC WITH DIFFE RENTI AL/PL ATELE T lymphs 21 % notest ab. Not Available [facility] ([facility]) [address] [facility], [place], [address], 03/30/2024 08:24:28 03/29/2003/30/2024 CBC WITH DIFFE RENTI AL/PL ATELE T monocytes 9 % notest ab. Not Available [facility] ([facility]) [address] [facility], [place], [address], 03/30/2024 08:24:28 03/29/20 24 03/30/2024 CBC WITH DIFFE RENTI AL/PL ATELE T eos 4 % notest ab. Not Available [facility] ([facility]) [address] [facility], [place], [address], 03/30/2024 08:24:28 03/29/20 24 03/30/2024 CBC WITH DIFFE RENTI AL/PL ATELE T basos 1 % notest ab. Not Available [facility] ([facility]) [address] [facility], [place], [address], 03/30/2024 08:24:28 03/29/20 24 03/30/2024 CBC WITH DIFFE RENTI AL/PL ATELE T neutrophils (absolute) 5.1 x10e3 /uL 1.4-7. 0 Not Available [facility] ([facility]) [address] [facility], [place], [address], 03/30/2024 08:24:28 03/29/2003/30/2024 CBC WITH DIFFE RENTI AL/PL ATELE T lymphs (absolute) 1.6 x10e3 /uL 0.7-3. 1 Not Available [facility] ([facility]) [address] [facility], [place], [address], 03/30/2024 08:24:28 03/29/20 24 03/30/2024 CBC WITH DIFFE RENTI AL/PL ATELE T monocytes(ab solute) 0.7 x10e3 /uL 0.1-0. 9 Not Available [facility] ([facility]) [address] [facility], [place], [address], 03/30/2024 08:24:28 03/29/2003/30/2024 CBC WITH DIFFE RENTI AL/PL ATELE T eos (absolute) 0.3 x10e3 /uL 0.0-0. 4 Not Available [facility] ([facility]) [address] [facility], [place], [address], 03/30/2024 08:24:28 03/29/2003/30/2024 CBC WITH DIFFE RENTI AL/PL ATELE T baso (absolute) 0.1 x10e3 /uL 0.0-0. 2 Not Available [facility] ([facility]) [address] [place], [address], 03/30/2024 08:24:28 03/29/20 24 03/30/2024 CBC WITH DIFFE RENTI AL/PL ATELE T immature granulocytes 1 % notest ab. Not Available [facility] ([facility]) [address] [facility], [place], [address], 03/30/2024 08:24:28 03/29/20 24 03/30/2024 CBC WITH DIFFE RENTI AL/PL ATELE T immature grans (abs) 0.0 x10e3 /uL 0.0-0. 1 Not Available [facility] ([facility]) [address] [facility], [place], [address], 03/30/2024 08:24:28 09/16/19 25 09/14/2024 XR, hand No observ ation record ed. [facility] [address] [facility] [address], [place], [address], 09/15/2024 14:03:08 Result Notes None recorded. Problems Name Problem SNOMED Code Status Onset Date Resolution Date Notes Provider Name and Address Organization Details Recorded Time Pain in right thumb 97941190935 25275 Active 2017 Not Available [facility] 4 23:39:42 Vitamin D deficienc y 87483095 Active 2017 Not Available [facility] 4 23:39:42 Edema of lower extremity 231789896 Active 2019 Not Available [facility] 4 23:39:42 Abnormali ty of nail of toe 287473321 Active 2019 Not Available [facility] 4 23:39:43 Overactiv e urinary bladder 894392866 Active 2019 Not Available [facility] 4 23:39:43 Mild memory disturban ce 215879478 Active 2021 Not Available [facility] 4 23:39:42 Essential hypertens ion 94205404 Active Not Available [facility] 4 23:39:43 Hyperlipi demia 03975070 Active Not Available [facility] 4 23:39:43 Osteopeni a 665761623 Completed 01/13/2017 Renata Montgomery APN, BRYOLOGIST-C Attn: Accounting ,[address] [facility], [place], [place], [address] [place] [address] , [facility] 7 11:10:51 Diverticu litis of colon 891439206 Active Not Available [facility] 4 23:39:42 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 52766342 Active Not Available [facility] 4 23:39:43 History of cerebrova scular accident 191019280 Active Not Available [facility] 4 23:39:42 Gastroeso phageal reflux disease 945220418 Active Not Available [facility] 4 23:39:42 Obesity 956297233 Active Not Available [facility] 4 23:39:42 Acquired trigger finger of right middle finger 04192312199 9105 Active 2023 Renata Montgomery APN, FNP-C Attn: Accounting ,[address] [facility], [place], [place], [address] [place] [address] , [facility] 4 11:47:51 Random blood sugar above reference range 997796553 Active Not Available [facility] 4 23:39:42 Cough 03254029 Completed 01/13/2017 Renata Montgomery APN, FNP-C Attn: Accounting ,[address] [facility], [place], [place], [address] [place] [address] , [facility] 7 11:10:45 Seasonal allergy 297068460 Active Not Available [facility] 4 23:39:42 Advance directive discussed with patient 673794291 Completed 05/05/2018 Renata Montgomery APN, FNP-C Attn: Accounting ,[address] [place], [place], [address] [place] [address] , [facility] 8 11:36:28 Osteoarth ritis 802004560 Active 2016 Not Available [facility] 4 23:39:42 Excessive daytime sleepines s - normal night sleep 623459471 Active 2016 Not Available [facility] 4 23:39:42 Problem Notes None recorded. Procedures Surgical History Date Name Laterality Status Provider Name and Address Organization Details Recorded Time 05/23/19 96 Cholecystectomy completed Renata Montgomery APN, BRYOLOGIST-C Attn: Accounting, [address] [facility], [place], [address], [place] [facility] 07/08/2017 15:56:16 06/23/18 67 Hysterectomy completed Angelika Redmonder [place] - [place] 09/18/2016 11:34:25 Dilation and Curettage completed Yuliya Baumann [place] - [place] 08/17/2014 12:37:34 Imaging Results Imaging Date Name Status LastModified by Organiz ation Details LastModified Time 09/14/2024 XR, hand completed [email or web address] [address], [place], [address], 09/15/2024 14:03:08 Procedure Notes None recorded. Medical Equipment None Reported. Allergies Allergen ID Allergen Name Allergen Category Reaction Reaction Severity Criticality Documentation Date Start Date Code Code System Note Provider Name and Address Organization Details Recorded Time 499097 lincomyci n medicatio n rash Not available high 08/02/20242019 6398 RxNorm Not Available Not Available Not Available 880236 demeclocy canales medicatio n rash Not available high 08/02/20242019 3154 RxNorm Not Available Not Available Not Available 35582 Product containin g penicilli n (product) medicatio n rash severe Not available 08/17/2014 66425 8001 SNOMED Not Available Not Available Not Available 06187 demeclocy canales hydrochlo ride medicatio n rash severe Not available 01/13/2017 26307 RxNorm Not Available Not Available Not Available [...] Not Available Not Available Fluzone High-Dose Quad (PF) 240 mcg/0.7 mL IM syringe 09/26 completed Not Available Not Available Not Available Vitals Date Recorded Body height Body mass index (BMI) Body weight Oxygen saturation Oxygen saturation in Arterial blood by Pulse oximetry Heart rate Respiratory rate Body temperature Systolic blood pressure Diastolic blood pressure Provider Name and Address Organization Details Last Updated DateTime 3 162.56 cm 32.3 kg/m2 47806.3 7 g 95 % 95 % 82 /min 16 /min 97.5 [degF] 126 mm[Hg] 76 mm[Hg] Leanna Higgins [facility] 3 11:19:54 Date Recorded Body height Body mass index (BMI) Body weight Respiratory rate Body temperature Oxygen saturation Oxygen saturation in Arterial blood by Pulse oximetry Heart rate Systolic blood pressure Diastolic blood pressure Provider Name and Address Organization Details Last Updated DateTime 4 162.56 cm 31.6 kg/m2 29663 g 16 /min 97.8 [degF] 95 % 95 % 70 /min 120 mm[Hg] 68 mm[Hg] Leanna Higgins Seferino [facility] 4 11:46:29 Date Recorded Body height Body mass index (BMI) Body weight Oxygen saturation Oxygen saturation in Arterial blood by Pulse oximetry Heart rate Respiratory rate Body temperature Systolic blood pressure Diastolic blood pressure Provider Name and Address Organization Details Last Updated DateTime 4 162.56 cm 31 kg/m2 73709.5 g 95 % 95 % 83 /min 16 /min 97.7 [degF] 124 mm[Hg] 82 mm[Hg] Deanna Cooper MA [facility] 4 11:27:54 Date Recorded Body height Body mass index (BMI) Body weight Oxygen saturation Oxygen saturation in Arterial blood by Pulse oximetry Heart rate Respiratory rate Body temperature Systolic blood pressure Diastolic blood pressure Provider Name and Address Organization Details Last Updated DateTime 4 162.56 cm 31.8 kg/m2 54652.5 9 g 95 % 95 % 82 /min 16 /min 97.3 [degF] 110 mm[Hg] 76 mm[Hg] Leanna Higgins Seferino [facility] SIF 4 10:57:23 Date Recorded Body height Body mass index (BMI) Body weight Oxygen saturation Oxygen saturation in Arterial blood by Pulse oximetry Body temperature Respiratory rate Heart rate Systolic blood pressure Diastolic blood pressure Provider Name and Address Organization Details Last Updated DateTime 5 162.56 cm 31.2 kg/m2 15065.8 1 g 95 % 95 % 97.5 [degF] 18 /min 110 /min 142 mm[Hg] 86 mm[Hg] EVARISTO Donnelly [place] - [facility] 11:36:30 Social History Question Answer Notes LastModified by Organizat ion Details LastModified Time Tobacco Smoking Status Former Smoker quit 1995 [place], [place] - [facility] 11/21/2021 09:25:18 Do You Have An Advance Directive? No Information not available 05/04/2019 What Is Your Level Of Alcohol Consumption? None Information not available 12/14/2019 Are You Blind Or Do You Have Difficulty Seeing? No Glasses Information not available 04/02/2021 What Is Your Level Of Caffeine Consumption? Moderate Coffee [email or web address] Information not available 09/26/2020 How Much Tobacco [...] available 11/01/2019 Are You Currently Employed? No [email or web address] Information not available 09/26/2020 Are You Deaf [...] What Is Your Relationship Status? Single Boyfriend [email or web address] Information not available 09/26/2020 Do You Use Your Seat Belt Or Car Seat Routinely? Yes [email or web address] Information not available 09/26/2020 Seat Belts Used Routinely Yes Information not available 08/17/2014 Are You Sexually Active? No Information not available 12/29/2020 Smoke Alarm In Home Yes Information not available 08/17/2014 Do You Have Smoke And Carbon Monoxide Detectors In Your Home? Yes [email or web address] Information not available 09/26/2020 Are You Passively Exposed To Smoke? No [email or web address] Information not available 09/26/2020 Do You Or Have You Ever Used Smokeless Tobacco? Never Used Smokeless Tobacco Information not available 05/04/2019 How Much Tobacco Do You Smoke? No [email or web address] Information not available 09/24/2017 General Stress Level Low Information not available 08/17/2014 Do You Feel Stressed (tense, Restless, Nervous, Or Anxious, Or Unable To Sleep At Night)? [id number] [email or web address] Information not available 09/26/2020 Do You Use Any Illicit Or Recreational Drugs? No [email or web address] Information not available 09/26/2020 Do You Use Sunscreen Routinely? No Information not available 05/04/2019 Has Tobacco Cessation Counseling Been Provided? Yes [email or web address] Information not available 02/21/2022 On What Date Was Tobacco Cessation Counseling Provided? 08/02/2024 Information not available 08/02/2024 How Many Years Have You Smoked Tobacco? 30 Information not available 08/17/2014 Do You Or Have You Ever Used Any Other Forms Of Tobacco Or Nicotine? No [email or web address] Information not available 08/21/2021 Sex: Female Functional Status Question Answer Note LastModified by Organization D etails LastModified Time Are you able to care for yourself? Yes Information n ot available 09/26/2020 What is your exercise level? None [email or web address] Information not available 02/25/2023 Mental Status None [...] Eating Disorder N Anemia N Heart Attack (CT) N Anxiety Disorder N Diabetes N Muscle, [...] virus, trivalent, preservative 3 completed Not Available [facility] 07/01/2023 23:39:43 Influenza, adjuvanted, quadrivalent, PF 1 completed Not Available [facility] 07/01/2023 23:39:43 Influenza, high-dose, quadrivalent, PF 0 completed Not Available [facility] 07/01/2023 23:39:43 Influenza, split virus, trivalent, preservative 4 completed Not Available [facility] 07/01/2023 23:39:43 Influenza, split virus, quadrivalent, preservative 6 completed Not Available [facility] 07/10/2019 02:32:32 COVID-19, mRNA, LNP-S, bivalent, PF, 50 mcg/0.5 mL or 25mcg/0.25 mL dose 2 completed Not Available [facility] 07/01/2023 23:39:43 Influenza, high-dose, quadrivalent, PF 3 completed Renata Montgomery, [employer], BRYOLOGIST-C Attn: Accounting[address] [place], [address], [place] [facility] 08/26/2023 11:52:56 COVID-19, mRNA, LNP-S, PF, 50 mcg/0.5 mL 3 completed Renata Montgomery [employer], BRYOLOGIST-C Attn: Accounting[address] [place], [address], [place] [facility] 08/26/2023 11:52:56 Influenza, split virus, quadrivalent, preservative 7 completed Not Available [facility] 07/10/2019 02:39:19 Influenza, split virus, quadrivalent, preservative [...] high-dose, trivalent, PF 4 completed Renata Montgomery, [employer]ER, BRYOLOGIST-C Attn: Accounting[address] [place], [address], [place] [facility] 03/30/2024 14:07:35 pneumococcal polysaccharide PPV23 1 completed Not Available [facility] 07/01/2023 23:39:43 zoster live 1 completed Not Available [facility] 07/01/2023 23:39:43 COVID-19, mRNA, LNP-S, PF, 50 mcg/0.5 mL 5 completed Renata Montgomery [employer], BRYOLOGIST-C Attn: Account[address] [place], [address], [place] [facility] 08/03/2024 10:34:00 Influenza, split virus, quadrivalent, preservative 5 completed Not Available [facility] 07/10/2019 02:32:11 Pneumococcal conjugate PCV 13 5 completed Not Available [facility] 07/10/2019 02:31:40 Past Encounters Encounter ID Performer Location Encounter Start Date Encounter Closed Date Diagnosis/Indication Diagnosis SNOMED-CT Code Diagnosis ICD10 Code Diagnosis Note [id number] Pat Perez (Adult Med) [address] [place] [address] 08/17/2014 11:33:09 08/17/2014 13:08:35 Essential hypertension 61090349 well controlled . continue same medication s Hyperlipidemia 97719067 continue Lovastatin 40 mg po once daiy. Gastroesop hageal reflux disease 453861218 Stable on Ranitidine . [id number] Lynda Fleming [facility] (Adult Med) [address] [place] [address] 12/15/2014 09:44:51 12/15/2014 11:00:47 Essential hypertension 86104147 well controlled . continue same medication s Hyperlipidemia 53041554 continue Lovastatin 40 mg po once daiy. Gastroesop hageal reflux disease 072692352 Stable on Ranitidine . Obesity 819659792 Advise d patient to do regular exercise like walking,lo w fat,low carb diet and weight reduction. Osteopenia [id number] Las t Dexa scan was dne on 02/18/13. Contiue calcium and Vitamin D. [id number] Get Ndi[facility] (Adult Med) [address] [facility] [place] [address] 06/08/2015 10:00:29 06/09/2015 14:26:43 Essential hypertension 27300349 I10 well controlled . continue same medication s Hyperlipidemia 61797567 E78.2 continue Lovastatin 40 mg po once daiy. Osteopenia 814946730 M85 .80 Last Dexa scan was dne on 02/18/13. Contiue calcium and Vitamin D. Influenza vaccine needed [id number] 106 Z23 Administra tion of pneumococcal vaccine 41159175 Z23 Obesity 517590365 E66.09 Advised patient to do regular exercise like walking,lo w fat,low carb diet and weight reduction. [id number] Renata Montgomery APN, FNP-C [facility] (Adult Med) [address] [place] [address] 01/18/2016 10:22:45 01/18/2016 14:23:27 Adult health examination 780702210 Z00.01 Gastroesop hageal reflux disease 202590904 K21.9 Essential hypertension 73927658 I10 Hyperlipidemia 58317996 E78.5 [id number] Renata Montgomery APN, FNP-C [facility] (Adult Med) [address] [facility] [place] [address] 04/03/2016 09:23:12 04/03/2016 12:47:42 Cough 20049777 R05 Seasonal allergy 4257669 04 J30.2 Influenza vaccine needed 5614096724 106 Z23 Obesity 267132653 E66.9 Advance di rective discussed with patient 689689349 Z71.89 [id number] Renata Montgomery APN, FNP-C [facility] (Adult Med) [address] [place] [address] 05/21/2016 10:22:28 05/21/2016 13:45:46 Essential hypertension 76665785 I10 Continue on metoprolol tartrate 25 mg BID Hyperlipidemia 53524317 E78.5 Taking lovastatin 40 mg and fenofibrat e 160 mg Gastroesop hageal reflux disease 744438452 K21.9 Taking Ranitidine 150 mg BID. Random blo od sugar above reference range 018713066 R73.9 Recheck labs today. Osteopenia 727428104 M85 .80 Female str ess incontinence 91748168 N39.3 Continue with oxybutyin chloride 5 mg. Screening for malignant neoplasm of colon 729102187 Z12.11 History of cerebrovascular accident 594787707 Z86.73 Continue with Plavix 75mg. [id number] Renata Montgomery APN, FNP-C [facility] (Adult Med) [address] [place] [address] 09/18/2016 10:52:13 09/18/2016 15:51:48 Gastroesophageal reflux disease 721849255 K21.9 Taking Ranitidine 150 mg BID. History of cerebrovascular accident 353561612 Z86.73 Continue with Plavix 75 mg. Obesity 133662407 E66.9 discussed increasing activity level to improve weight and mobility Hyperlipidemia 01332856 E78.5 Cont taking lovastatin 40 mg and fenofibrat e 160 mg Essential hypertension 91334298 I10 Continue on metoprolol tartrate 25 mg BID Female str ess incontinence 94277368 N39.3 Continue with oxybutyin chloride 5 mg. May increase to BID. Osteoarthritis 731656256 M19.90 right hip pain, takes OTC once in a while, encouraged increased mobility [id number] Renata Montgomery APN, FNP-C [facility] (Adult Med) [address] [place] [address] 01/13/2017 10:28:00 01/14/2017 09:47:12 Osteoarthritis 878502114 M19.90 right hip pain, takes OTC once in a while, encouraged increased mobility Obesity 083483685 E66.9 discussed increasing activity level to improve weight and mobility Hyperlipidemia 05738899 E78.5 Cont taking lovastatin 40 mg and fenofibrat e 160 mg Essential hypertension 87704085 I10 Continue on metoprolol tartrate 25 mg BID History of cerebrovascular accident 057852276 Z86.73 Continue with Plavix 75 mg. Gastroesop hageal reflux disease 566187067 K21.9 Taking Ranitidine 150 mg BID. Female str ess incontinence 19205613 N39.3 Continue with oxybutyin chloride 5 mg. May increase to BID. Advance di rective discussed with patient 748713226 Z71.89 Excessive daytime sleepiness - normal night sleep 683697625 G47.19 score of 9-higher than normal daytime sleepiness ; dwp sleep habits and hygeine. does not wish to have sleep study at this time [id number] Renata Montgomery APN, ANA [facility] (Adult Med) [address] [place] [address] 05/26/2017 10:53:28 05/27/2017 13:36:44 Essential hypertension 00630799 I10 Continue on metoprolol tartrate 25 mg BID Hyperlipidemia 95639749 E78.5 Cont taking lovastatin 40 mg and fenofibrat e 160 mg Gastroesop hageal reflux disease 963368335 K21.9 Taking Ranitidine 150 mg BID. Female str ess incontinence 89840572 N39.3 Continue with oxybutyin chloride 5 mg. May increase to BID. or take qam plus 1/2 tab 2-3 days a week; Osteoarthritis 259511016 M19.90 right hip pain, takes OTC once in a while, encouraged increased mobility Obesity 323334113 E66.9 discussed increasing activity level to improve weight and mobility History of cerebrovascular accident 671969853 Z86.73 Continue with Plavix 75 mg. Administra tion of influenza vaccine 67930734 Z23 [id number] Renata Montgomery APN, ANA [facility] (Adult Med) [address] [place] [address] 07/08/2017 14:37:30 07/09/2017 18:04:28 Dysuria 59126261 R30.0 urine clear, dwp to cont to drink water and notify office if return of pain/sympt oms Low back pain 292720528 M54.5 cont with conservati ve measures to reduce pain/spasm s [id number] Renata Montgomery APN, ANA [facility] (Adult Med) [address] [place] [address] 09/24/2017 10:58:20 09/25/2017 08:31:54 Essential hypertension 15471651 I10 Continue on metoprolol tartrate 25 mg BID Hyperlipidemia 55029390 E78.5 Cont taking lovastatin 40 mg and fenofibrat e 160 mg Gastroesop hageal reflux disease 402363217 K21.9 Taking Ranitidine 150 mg BID. Female str ess incontinence 00439443 N39.3 Continue with oxybutyin chloride 5 mg. May increase to BID. or take qam plus 1/2 tab 2-3 days a week; Osteoarthritis 240208216 M19.90 right hip pain, takes OTC once in a while, encouraged increased mobility Obesity 899893915 E66.9 discussed increasing activity level to improve weight and mobility History of cerebrovascular accident 430217489 Z86.73 Continue with Plavix 75 mg. Hyperglycemia 77234839 R 73.9 recheck a1c Vitamin D deficiency 347 61926 E55.9 recheck, may cont replacemen t Pain in right thumb 1076 464966 723436 M79.644 right thumb pain started 2 weeks ago, painful and pops at IP joint when extending; obtain xray thumb, plan pending results, use thumb splint, ice as needed [id number] Renata Montgomery APN, ANA [facility] (Adult Med) [address] [place] [address] 01/28/2018 11:20:57 01/28/2018 14:24:11 Essential hypertension 20733338 I10 initially high today, fine on recheck;Co ntinue on metoprolol tartrate 25 mg BID Hyperlipidemia 70027291 E78.5 Cont taking lovastatin 40 mg and fenofibrat e 160 mg Gastroesop hageal reflux disease 577178797 K21.9 cont Ranitidine 150 mg BID. Hyperglycemia 91302087 R 73.9 recheck a1c in 6 months Vitamin D deficiency 347 49124 E55.9 recheck, may cont replacemen t to raise and maintain level above 30 Female str ess incontinence 43032414 N39.3 Continue with oxybutynin chloride 5 mg. May increase to BID. or take qam plus 1/2 tab 2-3 days a week; Osteoarthritis 198786184 M19.90 right hip pain, takes OTC once in a while, encouraged increased mobility Obesity 306932345 E66.9 discussed increasing activity level to improve weight and mobility History of cerebrovascular accident 835947767 Z86.73 Continue with Plavix 75 mg. Endocrine/ metabolic screening 528883890 Z13.228 Excessive daytime sleepiness - normal night sleep 444684056 G47.19 score of 9-higher than normal daytime sleepiness ; dwp sleep habits and hygeine. does not wish to have sleep study at this time; would like to try vit B12 OTC [id number] Renata Montgomery APN, BRYOLOGIST-C [facility] (Adult Med) [address] [place] [address] 05/05/2018 11:00:42 05/05/2018 17:13:57 Administration of influenza vaccine 39160489 Z23 [facility] handout provided Essential hypertension 97799117 I10 Continue on metoprolol tartrate 25 mg BID Hyperlipidemia 81543883 E78.5 Cont taking lovastatin 40 mg and fenofibrat e 160 mg Gastroesop hageal reflux disease 561049841 K21.9 cont Ranitidine 150 mg BID. Hyperglycemia 31249524 R 73.9 recheck a1c in 3 months Vitamin D deficiency 347 34031 E55.9 may cont replacemen t to raise and maintain level above 30 Female str ess incontinence 19951138 N39.3 Continue with oxybutynin chloride 5 mg. May increase to BID. or take qam plus 1/2 tab 2-3 days a week; Osteoarthritis 267062686 M19.90 right hip pain, takes OTC once in a while, encouraged increased mobility Obesity 250716224 E66.9 discussed increasing activity level to improve weight and mobility History of cerebrovascular accident 795781847 Z86.73 Continue with Plavix 75 mg. Excessive daytime sleepiness - normal night sleep 211365491 G47.19 score of 9-higher than normal daytime sleepiness ; dwp sleep habits and hygeine. does not wish to have sleep study at this time; Cough 01545029 R05 taking tessalon perles from [place] [id number] Renata Montgomery APN, ANA [facility] (Adult Med) [address] [place] [address] 09/07/2018 14:15:51 09/08/2018 09:41:55 Gastroesophageal reflux disease 505701449 K21.9 cont Ranitidine 150 mg BID. Vitamin D deficiency 347 73563 E55.9 may cont replacemen t to raise and maintain level above 30 Hyperlipidemia 79995141 E78.5 Cont taking lovastatin 40 mg and fenofibrat e 160 mg Essential hypertension 86546799 I10 Continue on metoprolol tartrate 25 mg BID Female str ess incontinence 92686404 N39.3 Continue with oxybutynin chloride 5 mg. May increase to BID. or take qam plus 1/2 tab 2-3 days a week; Hyperglycemia 74249271 R 73.9 due for lab Osteoarthritis 509617825 M19.90 right hip pain, takes OTC once in a while, encouraged increased mobility Obesity 395343290 E66.9 discussed increasing activity level to improve weight and mobility History of cerebrovascular accident 043933082 Z86.73 Continue with Plavix 75 mg. Cough 14413224 R05 taking tessalon perles prn Upper resp iratory infection 81692697 J06.9 dwp to increase fluids, OTC cold med prn, rest, good handwashin g; dwp to call if not improving or if condition worsens; [id number] Renata Montgomery APN, [facility] (Adult Med) [address] [place] [address] 01/04/2019 15:07:52 01/05/2019 12:33:01 Essential hypertension 79275085 I10 Continue on metoprolol tartrate 25 mg BID, did not take his medication today Gastroesop hageal reflux disease 109036269 K21.9 cont Ranitidine 150 mg BID. Vitamin D deficiency 347 80101 E55.9 may cont replacemen t to raise and maintain level above 30 Hyperlipidemia 22359740 E78.5 Cont taking lovastatin 40 mg and fenofibrat e 160 mg Female str ess incontinence 83084298 N39.3 Continue with oxybutynin chloride 5 mg. May increase to BID. or take qam plus 1/2 tab 2-3 days a week; Hyperglycemia 64830534 R 73.9 due for lab Osteoarthritis 711868388 M19.90 right hip pain, takes OTC once in a while, encouraged increased mobility Obesity 115538899 E66.9 discussed increasing activity level to improve weight and mobility History of cerebrovascular accident 181155905 Z86.73 Continue with Plavix 75 mg. [id number] Renata Montgomery APN, FNP-C [facility] (Adult Med) [address] [place] [address] 05/04/2019 11:08:01 05/05/2019 10:45:21 Administration of influenza vaccine 87849985 Z23 [facility] handout provided Influenza- like symptoms 244708607 R68.89 pt with aches and flu like symptoms, neg test Viral syndrome 419871657 B34.9 dwp to increase fluids, OTC cold med prn, rest, good handwashin g [id number] Renata Montgomery APN, FNP-C [facility] (Adult Med) [address] [place] [address] 05/11/2019 14:40:21 05/19/2019 08:57:10 Dysuria 53761462 R30.0 urine dip pos leuk, will send for culture and notify pt if abx change needed, will start macrobid; dwp to increase fluids and RTO if increase in pain or fever or other changes occur. [id number] Renata Montgomery APN, FNP-C [facility] (Adult Med) [address] [place] [address] 07/27/2019 12:07:39 07/28/2019 08:03:30 Acute sinusitis 72791102 J01.90 sinus pressure with purulent drainage, start bactrim Acute bronchitis 3544017 2 J20.9 rhonchi present, will cover with abx, tussin cough Gastroesop hageal reflux disease 473770322 K21.9 stopped Ranitidine 150 mg BID. d/t recall, taking otc and doing ok Female str ess incontinence 07640804 N39.3 pt stopped oxybutynin chloride as it was not helping, will send myrbetriq 25 mg qd, worse lately with coughing Essential hypertension 51455261 I10 Continue on metoprolol tartrate 25 mg BID, did take her medication today but also taking decongesta nt, dwp increase fluids and decrease sdium intake as well [id number] Renata Montgomery APN, FNP-C [facility] (Adult Med) [address] [place] [address] 11/01/2019 10:54:13 11/02/2019 07:24:02 Abnormality of nail of toe 579754447 L60.8 reports she cannot cut on own anymorebil ateral edemapt declines podiatry referral at this time Edema of l ower extremity 591275589 R60.0 dwp starting water pill, pt agrees to low dosestart with half tablet hctzlow salt diet [id number] Renata Montgomery APN, FNP-C [facility] (Adult Med) [address] [place] [address] 11/22/2019 10:31:34 11/23/2019 10:51:56 Osteoarthritis 177306954 M19.90 right hip pain, takes OTC once in a while, encouraged increased mobility Frontal headache 8520200 05 R51 right side above eye, goes away with tylenol; pt declines rx for this Allergic rhinitis 187032 04 J30.9 dwp trial antihistam [facility] [id number] ALISHA Samaniego [address] [place] [address] 11/24/2019 12:14:21 11/25/2019 09:25:52 Suspected COVID-19 349060551 Z03.818 D/w pt the current pandemic of COVID-19 and call for social isolation in order to blunt the curve and minimize risk and spread. Encouraged patient and family to take restrictio ns seriously. They have verbalized understand ing of such. Viral syndrome 009760513 B34.9 [id number] Renata Montgomery APN, FNP-C [facility] (Adult Med) [address] [facility] [place] [address] 12/14/2019 08:33:16 12/15/2019 10:50:15 Dyspnea 743490181 R06.00 dwp pft advised, pt not using inhalers, r/o copd vs chf, still need echo results Hospital i npatient stay within past 30 days 4079688363 106 Z76.89 reviewed with pt; still need remaining chart records, echo? Edema of l ower extremity 745434422 R60.0 dwp starting water pill, pt agrees; legs not as swollen as they were previously , bnp elevated in hospital, likely CHF, unsure if echo done, pt believes they did, will get recordssta rt with half tablet hctzlow salt diet Abnormalit y of nail of toe 605350595 L60.8 reports she cannot cut on own anymorebil ateral edemapt declined podiatry referral in past and now wants to go [id number] Renata Montgomery APN, [facility] (Adult Med) [address] [place] [address] 03/14/2020 08:05:35 03/16/2020 16:17:41 Edema of lower extremity 169074645 R60.0 dwp starting water pill, pt agrees; legs not as swollen as they were previously , bnp elevated in hospital, likely CHF, unsure if echo done, pt believes they did, will get recordhctz not helping; will start lasixlow salt diet Hyperlipidemia 55879623 E78.5 Cont taking lovastatin 40 mg and fenofibrat e 160 mg [id number] Renata Montgomery APN, [facility] (Adult Med) [address] [place] [address] 05/03/2020 08:10:01 05/04/2020 14:45:54 Edema of lower extremity 773632634 R60.0 BNP improved on recent lab down from 1600 to 160cont lasix to 40 mg, along with K 10 mEq low salt diet Hyperlipidemia 45527082 E78.5 Cont taking lovastatin 40 mg and fenofibrat e 160 mg Essential hypertension 10405290 I10 Continue on metoprolol tartrate 25 mg BID, dwp increase fluids and decrease sodium intake as well Gastroesop hageal reflux disease 888821374 K21.9 stopped Ranitidine 150 mg BID. d/t recall, taking otc and doing ok Overactive urinary bladder 800775596 N32.81 cont oxybutynin 5 mg bid [id number] Renata Montgomery APN, FNP-C [facility] (Adult Med) [address] [place] [address] 07/17/2020 08:30:45 07/19/2020 08:08:19 Edema of lower extremity 193569592 R60.0 BNP improved on last labcont lasix to 40 mg, along with K 10 mEq low salt diet Hyperlipidemia 55506862 E78.5 Cont taking lovastatin 40 mg and fenofibrat e 160 mg Essential hypertension 31735868 I10 Continue on metoprolol tartrate 25 mg BID, dwp increase fluids and decrease sodium intake as well Gastroesop hageal reflux disease 660827912 K21.9 stopped Ranitidine 150 mg BID. d/t recall, taking otc and doing ok Overactive urinary bladder 288042457 N32.81 cont oxybutynin 5 mg bid Vitamin D deficiency 347 43204 E55.9 may cont replacemen t to raise and maintain level above 30 [id number] IVAN Russell 14 IM [address] [facility] [place] [address] 07/24/2020 12:03:04 07/24/2020 16:16:19 Administration of SARS-CoV-2 antigen vaccine 744634789 Z23 [id number] IVAN Russell 14 IM [address] [facility] [place] [address] 08/21/2020 11:47:18 08/23/2020 09:50:22 Administration of SARS-CoV-2 antigen vaccine 445041535 Z23 [id number] Renata Montgomery APN, FNP-C [facility] (Adult Med) [address] [facility] [place] [address] 09/26/2020 11:51:06 09/27/2020 09:30:55 Edema of lower extremity 922706090 R60.0 BNP improved on last lab cont lasix to 40 mg, along with K 10 mEq low salt diet Hyperlipidemia 72686942 E78.5 Cont taking lovastatin 40 mg and fenofibrat e 160 mg Essential hypertension 60896336 I10 meets JNC8 guidelines for age Continue on metoprolol tartrate 25 mg BID, dwp increase fluids and decrease sodium intake as well Gastroesop hageal reflux disease 756947174 K21.9 stopped Ranitidine 150 mg BID. d/t recall, taking otc and doing ok Overactive urinary bladder 267611080 N32.81 cont oxybutynin 5 mg qd; Vitamin D deficiency 347 93931 E55.9 may cont replacemen t to raise and maintain level above 30 [id number] Renata Montgomery APN, FNP-C [place] (Adult Med) [address] [place] [address] 12/29/2020 09:34:55 01/02/2021 08:25:46 Edema of lower extremity 198103203 R60.0 BNP improved on last lab cont lasix to 40 mg, along with K 10 mEq low salt diet Hyperlipidemia 65585482 E78.5 Cont taking lovastatin 40 mg and fenofibrat e 160 mg Essential hypertension 84551274 I10 meets JNC8 guidelines for age Continue on metoprolol tartrate 25 mg BID, dwp increase fluids and decrease sodium intake as well Gastroesop hageal reflux disease 579134205 K21.9 stopped Ranitidine 150 mg BID. d/t recall, taking otc and doing ok Overactive urinary bladder 914413775 N32.81 cont oxybutynin 5 mg qd; wants to go back to bid dosing Vitamin D deficiency 347 41153 E55.9 may cont replacemen t to raise and maintain level above 30 Cough 74689046 R05 taking tessalon perles prndwp getting covid testing [id number] ALISHA Samaniego [address] [place] [address] 12/29/2020 10:41:49 12/29/2020 14:05:11 Viral syndrome 100286540 B34.9 D/w pt the current pandemic of COVID-19 and call for social isolation in order to blunt the curve and minimize risk and spread. Encouraged patient and family to take restrictio ns seriously. They have verbalized understand ing of such. [id number] Renata Montgomery APN, ANA [facility] (Adult Med) [address] [place] [address] 04/02/2021 09:18:13 04/06/2021 10:10:37 Edema of lower extremity 404707280 R60.0 BNP improved on last lab cont lasix to 40 mg, along with K 10 mEq low salt diet Hyperlipidemia 12377448 E78.5 Cont taking lovastatin 40 mg and fenofibrat e 160 mg Essential hypertension 02891564 I10 meets JNC8 guidelines for age; Continue on metoprolol tartrate 25 mg BID, dwp increase fluids and decrease sodium intake as well Gastroesop hageal reflux disease 939638651 K21.9 stopped Ranitidine 150 mg BID. d/t recall, taking otc and doing ok Overactive urinary bladder 954874703 N32.81 cont oxybutynin 5 mg qd; wants to go back to bid dosing Vitamin D deficiency 347 66894 E55.9 may cont replacemen t to raise and maintain level above 30 Obesity 516423709 E66.9 discussed increasing activity level to improve weight and mobility [id number] BRYANT [facility] (Adult Med) [address] [facility] [place] [address] 05/10/2021 10:40:44 05/11/2021 08:47:00 Administration of SARS-CoV-2 mRNA vaccine [id number] Z23 [id number] Renata Montgomery APN, BRYOLOGIST-C [facility] (Adult Med) [address] [place] [address] 08/21/2021 09:25:59 08/22/2021 07:36:32 Edema of lower extremity 374540185 R60.0 BNP improved on last lab cont lasix to 40 mg, along with K 10 mEq low salt diet Hyperlipidemia 15618468 E78.5 Cont taking lovastatin 40 mg and fenofibrat e 160 mg Essential hypertension 09384273 I10 meets JNC8 guidelines for age; Continue on metoprolol tartrate 25 mg BID, dwp increase fluids and decrease sodium intake as well Gastroesop hageal reflux disease 617281348 K21.9 stopped Ranitidine 150 mg BID. d/t recall, taking otc and doing ok Overactive urinary bladder 351405492 N32.81 cont oxybutynin 5 mg qd; wants to go back to bid dosing Vitamin D deficiency 347 21382 E55.9 may cont replacemen t to raise and maintain level above 30 Obesity 620724402 E66.9 discussed increasing activity level to improve weight and mobility Mild memor y disturbance 527796127 R41.3 dwp taking prevagen or like substance; [id number] Renata Montgomery APN, FNP-C [place] (Adult Med) [address] [place] [address] 11/21/2021 09:18:07 11/22/2021 09:47:04 Edema of lower extremity 727966487 R60.0 BNP improved on last lab cont lasix to 40 mg, along with K 10 mEq low salt diet Hyperlipidemia 44547771 E78.5 Cont taking lovastatin 40 mg and fenofibrat e 160 mg Essential hypertension 06080948 I10 meets JNC8 guidelines for age; Continue on metoprolol tartrate 25 mg BID, dwp increase fluids and decrease sodium intake as well Gastroesop hageal reflux disease 277753392 K21.9 stopped Ranitidine 150 mg BID. d/t recall, taking otc and doing ok Overactive urinary bladder 640165533 N32.81 cont oxybutynin 5 mg qd; wants to go back to bid dosing; still leaking a lot, will change to ER doing and 10 mg; offered urology referral, Vitamin D deficiency 347 25401 E55.9 may cont replacemen t to raise and maintain level above 30 Obesity 300855668 E66.9 discussed increasing activity level to improve weight and mobility Mild memor y disturbance 495901937 R41.3 dwp taking prevagen or like substance; [id number] Leanna Perez (Adult Med) [address] [place] [address] 11/29/2021 10:09:29 12/03/2021 12:46:15 Administration of SARS-CoV-2 mRNA vaccine [id number] Z23 [id number] Renata Montgomery APN, ANA [facility] (Adult Med) [address] [place] [facility] [place] [address] 02/21/2022 09:31:22 02/22/2022 07:35:32 Edema of lower extremity 934395423 R60.0 BNP improved on last lab cont lasix to 40 mg, along with K 10 mEq low salt diet Hyperlipidemia 44307354 E78.5 Cont taking lovastatin 40 mg and fenofibrat e 160 mg Essential hypertension 35624438 I10 meets JNC8 guidelines for age; saw cardio 01/25/22 Continue on metoprolol tartrate 25 mg BID, dwp increase fluids and decrease sodium intake as well Gastroesop hageal reflux disease 874568897 K21.9 stopped Ranitidine 150 mg BID. d/t recall, taking otc and doing ok Overactive urinary bladder 590072682 N32.81 cont oxybutynin 5 mg qd; wants to go back to bid dosing; still leaking a lot, will change to ER doing and 10 mg; offered urology referral, Vitamin D deficiency 347 71360 E55.9 may cont replacemen t to raise and maintain level above 30 Obesity 993680269 E66.9 discussed increasing activity level to improve weight and mobility Mild memor y disturbance 065020598 R41.3 dwp taking prevagen or like substance; [id number] BRYANT William (Adult Med) [address] [place] [address] 04/10/2022 10:30:23 04/11/2022 13:53:40 Administration of influenza vaccine 68511527 Z23 [facility] handout provided [id number] Renata Montgomery APN, BRYOLOGIST-C [facility] (Adult Med) [address] [place] [address] 08/22/2022 10:18:17 08/26/2022 14:20:38 Edema of lower extremity 476324240 R60.0 cont lasix to 40 mg, along with K 10 mEq low salt diet Hyperlipidemia 01048839 E78.5 Cont taking lovastatin 40 mg and fenofibrat e 160 mg Essential hypertension 61837644 I10 meets JNC8 guidelines for age; saw cardio 01/25/22 Continue on metoprolol tartrate 25 mg BID, dwp increase fluids and decrease sodium intake as well Gastroesop hageal reflux disease 941724141 K21.9 stopped Ranitidine 150 mg BID. d/t recall, taking otc and doing ok Overactive urinary bladder 929484113 N32.81 cont oxybutynin 5 mg qd; wants to go back to bid dosing; still leaking a lot, will change to ER doing and 10 mg; offered urology referral, Vitamin D deficiency 347 32069 E55.9 may cont replacemen t to raise and maintain level above 30 Obesity 643983692 E66.9 discussed increasing activity level to improve weight and mobility Mild memor y disturbance 741552603 R41.3 dwp taking prevagen or like substance; Acute bronchitis 0058669 2 J20.9 rhonchi present, will cover with abx, tussin cough [id number] Renata Montgomery APN, ANA [facility] (Adult Med) [address] [place] [address] 02/25/2023 11:05:52 03/03/2023 14:23:06 Edema of lower extremity 308255036 R60.0 cont lasix to 40 mg, along with K 10 mEq low salt diet Hyperlipidemia 28977171 E78.5 Cont taking lovastatin 40 mg and fenofibrat e 160 mg Essential hypertension 57071352 I10 meets JNC8 guidelines for age; Continue on metoprolol tartrate 25 mg BID, dwp increase fluids and decrease sodium intake as well Gastroesop hageal reflux disease 949776403 K21.9 stopped Ranitidine 150 mg BID. d/t recall, taking otc and doing ok Overactive urinary bladder 506574794 N32.81 cont oxybutynin 5 mg qd; wants to go back to bid dosing; still leaking a lot, will change to ER doing and 10 mg; offered urology referral, pt declines but will increase to 15 mg Vitamin D deficiency 347 37542 E55.9 may cont replacemen t to raise and maintain level above 30 Obesity 446954129 E66.9 discussed increasing activity level to improve weight and mobility Mild memor y disturbance 042101965 R41.3 dwp taking prevagen or like substance; [id number] Renata Montgomery APN, ANA [facility] (Adult Med) [address] [place] [address] 08/26/2023 11:15:33 08/28/2023 09:28:06 Essential hypertension 99914373 I10 meets JNC8 guidelines for age Continue on metoprolol tartrate 25 mg BID, dwp increase fluids and decrease sodium intake as well Edema of l ower extremity 130250637 R60.0 cont lasix to 40 mg, along with K 10 mEq low salt diet Hyperlipidemia 75343759 E78.5 Cont taking lovastatin 40 mg and fenofibrat e 160 mg Gastroesop hageal reflux disease 691486414 K21.9 stopped Ranitidine 150 mg BID. d/t recall, taking otc and doing ok Overactive urinary bladder 179200121 N32.81 cont oxybutynin 15 mg qd; wants to go back to bid dosing; still leaking a lot, offered urology referral, pt declines Vitamin D deficiency 347 96990 E55.9 may cont replacemen t to raise and maintain level above 30 Obesity 382913049 E66.9 discussed increasing activity level to improve weight and mobility Mild memor y disturbance 814345282 R41.3 dwp taking prevagen or like substance; Excessive daytime sleepiness - normal night sleep 778212507 G47.19 score of 9-higher than normal daytime sleepiness ; dwp sleep habits and hygeine. does not wish to have sleep study at this time;pt showed genet from phone, is getting good sleep, last night got 11 hours [id number] Renata Montgomery APN, BRYOLOGIST-C [facility] (Adult Med) [address] [place] [address] 11/27/2023 11:10:53 11/28/2023 16:15:02 Acquired trigger finger of right middle finger 0124741664 26702 M65.331 Conservati ve Management :Rest: Advise patient [...] inflammati on and relieve symptoms. Essential hypertension 39572629 I10 meets JNC8 guidelines for age Continue on metoprolol tartrate 25 mg BID, dwp increase fluids and decrease sodium intake as well Edema of l ower extremity 923243896 R60.0 cont lasix to 40 mg, and 20 mg along with K 10 mEq low salt diet Hyperlipidemia 60666670 E78.5 Cont taking lovastatin 40 mg and fenofibrat e 160 mg Gastroesop hageal reflux disease 368561612 K21.9 stopped Ranitidine 150 mg BID. d/t recall, taking otc and doing ok Overactive urinary bladder 526740085 N32.81 cont oxybutynin 15 mg qd; wants to go back to bid dosing; still leaking a lot, offered urology referral, pt declines Vitamin D deficiency 347 85558 E55.9 may cont replacemen t to raise and maintain level above 30 Obesity 586837607 E66.9 discussed increasing activity level to improve weight and mobility Mild memor y disturbance 661290501 R41.3 dwp taking prevagen or like substance; Excessive daytime sleepiness - normal night sleep 626160262 G47.19 pt showed genet from phone, is getting good sleep, last night got 11 hours [id number] Renata Montgomery APN, BRYOLOGIST-C [facility] (Adult Med) [address] [place] [address] 03/29/2024 10:43:33 04/01/2024 16:25:09 Acquired trigger finger of right middle finger 5783355666 55158 M65.331 Conservati ve Management :Rest: Advise patient [...] inflammati on and relieve symptoms. Essential hypertension 46895036 I10 meets JNC8 guidelines for age Continue on metoprolol tartrate 25 mg BID, decrease sodium intake as well Edema of l ower extremity 983347506 R60.0 cont lasix to 40 mg, and 20 mg along with K 10 mEq low salt diet Hyperlipidemia 72364972 E78.5 Cont taking lovastatin 40 mg and fenofibrat e 160 mg Gastroesop hageal reflux disease 259094872 K21.9 stopped Ranitidine 150 mg BID. d/t recall, taking otc and doing ok Overactive urinary bladder 408816481 N32.81 cont oxybutynin 15 mg qd; wants to go back to bid dosing; still leaking a lot, offered urology referral, pt declines Vitamin D deficiency 347 01395 E55.9 may cont replacemen t to raise and maintain level above 30 Obesity 977209588 E66.9 discussed increasing activity level to improve weight and mobility Mild memor y disturbance 139308849 R41.3 dwp taking prevagen or like substance; Excessive daytime sleepiness - normal night sleep 186598164 G47.19 pt showed genet from phone, is getting good sleep, last night got 11 hours Administra tion of influenza vaccine 98638074 Z23 [facility] handout provided [id number] Renata Montgomery APN, BRYOLOGIST-C [facility] (Adult Med) [address] [place] [address] 08/02/2024 11:11:59 08/04/2024 16:13:57 Acquired trigger finger of right middle finger 9835849921 67232 M65.331 Conservati ve Management :Rest: Advise patient [...] would like new referral now Essential hypertension 97476541 I10 meets JNC8 guidelines for age Continue on metoprolol tartrate 25 mg BID, decrease sodium intake as well Edema of l ower extremity 520316503 R60.0 cont lasix to 40 mg, and 20 mg along with K 10 mEq low salt diet Hyperlipidemia 07608263 E78.5 Cont taking lovastatin 40 mg and fenofibrat e 160 mg Gastroesop hageal reflux disease 596346803 K21.9 stopped Ranitidine 150 mg BID. d/t recall, taking otc and doing ok Overactive urinary bladder 619915498 N32.81 cont oxybutynin 15 mg qd; wants to go back to bid dosing; still leaking a lot, offered urology referral, pt declines Vitamin D deficiency 347 23188 E55.9 may cont replacemen t to raise and maintain level above 30 Obesity 060351793 E66.9 discussed increasing activity level to improve weight and mobility Mild memor y disturbance 895192207 R41.3 dwp taking prevagen or like substance; Excessive daytime sleepiness - normal night sleep 147173140 G47.19 pt showed genet from phone, is getting good sleep, last night got 11 hours Administra tion of SARS-CoV-2 mRNA vaccine 2069813078 Z23 Health Concerns Section Related Observation LastModified by Organization Detai ls LastModified Time None Recorded Concern Status LastModified by Organization Details LastModified Time None Recorded Advance Directives Directive N: Payers Encounter Date Sequence Insurance Name Policy Number Policy Siddiqui Covered Member ID Siddiqui Member ID Guarantor Name 02/25/2023 1 [employer] (MEDICARE REPLACEMENT/AD VANTAGE - HMO) [id number] Dianna Arana [id number] Dianna Arana 08/26/2023 1 [facility] (MEDICARE REPLACEMENT/AD VANTAGE - HMO) [id number] Dianna Arana [id number] Dianna Arana 11/27/2023 1 [facility] (MEDICARE REPLACEMENT/AD VANTAGE - HMO) [id number] Dianna Arana [id number] Dianna Arana 03/29/2024 1 [facility] (MEDICARE REPLACEMENT/AD VANTAGE - HMO) [id number] Dianna Arana [id number] Dianna Arana 08/02/2024 1 [employer] (MEDICARE REPLACEMENT PPO) [id number] Dianna Arana [id number] Dianna Arana 08/02/2024 2 *SELF PAY* [place] [...] position or at sleep Renata Montgomery APN, BRYOLOGIST-C Attn: Accounting,[address] [place] [address], [address], [place] - [facility] 02/25/2023 11:39:33 4 text/html HyperlipidemiaReported bypatient.Type of [...] day Renata Montgomery APN, FNP-C Attn: Accounting,[address] [facility], [place], [address], [facility] 08/26/2023 18:02:25 4 text/html HyperlipidemiaReported bypatient.Type of [...] Montgomery APN, FNP-C Attn: Accounting,[address] [facility], [place], [address], [facility] 11/27/2023 12:06:35 4 text/html HyperlipidemiaReported bypatient.Type of [...] position or at sleep Renata Montgomery APN, BRYOLOGIST-C Attn: Accounting,[address] [place], [address], [place] [facility] 03/30/2024 14:11:08 5 text/html HyperlipidemiaReported [...] have a covid shot Renata Montgomery APN, BRYOLOGIST-C Attn: Accounting,[address] [place], [address], [facility] 08/03/2024 10:34:55 OBGyn Episode No OBEpisode recorded.
--- OUTSIDE RECORDS SUMMARY | 2024-09-17 09:56 | XMS_ITS | Referral Summary ---
Author Organization [facility] [address] [facility] Address [address] [place] [address] Care Team Providers Care Superintendent Car Construction Name Role Phone Miscellaneous, Not In File Unavailable Unava ilRenata Plascencia RESCUE INSTRUCTOR Primary Care Provider + [phone] Encounters Date Type Department Care Team Description 09/08/2024 Telephone [facility] [address] [place] [phone] Rebel Villalba NP 09/08/2024 Orders Only [facility] [address] [place] [phone] Rebel Villalba NP Right hand pain (Primary Dx); Contracture of joint of finger of right hand 09/08/2024 7:50 AM CDT - 09/08/2024 11:59 PM CDT Hospital Encounter [facility] [address] [place] [phone] Discharge Disposition: Discharge to home or self care 09/08/2024 2:45 PM CDT Office Visit [facility] [address] [place] [phone] Rebel Villalba NP Right hand pain (Primary [...] on file Legal Sex Female 11:51 PM CLIENT SOLUTIONS DIRECTOR Gender Identity Not on file Sexual Orientation [...] noted at PIP long finger. Rebel Villalba RESCUE INSTRUCTOR IMG XR PROCEDURES Final Result from Last 3 Months Insurance MDCR HMO REF [facility] MEDICARE ADVANTAGE [employer] MEDICARE Advance Directives For more information, please contact: [phone] * Full Code (Latest Code Status on File) Date Activated Date Inactivated Comments 11/30/2019 10:34 PM 12/03/2019 10:43 PM Care Teams Superintendent Car Construction Relationship Specialty Start Date End Date Mcdaniel, Renata Cisneros NP [address] [place] [address] PCP - General Nurse Practitioner 09/25/21 Miscellaneous, Not In File 12/03/19
--- OUTSIDE RECORDS SUMMARY | 2024-09-17 09:57 | XMS_ITS | Clinical Summary ---
Author Organization [facility] Address [address] [place] [address] Phone Care Team Providers Care Program Strategist Name Role Phone Violeta, Renata MURILLO CNP Primary Care Provider [phone] Social History Tobacco Use Types Packs/Day Years [...] Procedure Name Priority Date/Time Associated Diagnosis Comments [facility] BONE DENSITOMETRY AXIAL SKELETON Routine 06/27/2015 12:13 PM WOOD FENCE INSTALLER Osteopenia from Last 3 Months or Most Recently Relevant to Health Maintenance Results * [facility] BONE DENSITOMETRY AXIAL SKELETON (06/27/2015 12:13 PM WOOD FENCE INSTALLER) Anatomical Region Laterality Modality BODY N/A Other 06/27/2015 3:06 PM WOOD FENCE INSTALLER Impressions 06/27/2015 3:10 PM WOOD FENCE INSTALLER IMPRESSION: Low bone mass. The patient's risk [...] of Osteoporosis (http://www.nof.org/professionals/clinical-guidelines) Narrative 06/27/2015 3:10 PM WOOD FENCE INSTALLER HISTORY: 75 year old postmenopausal female with [...] regular dairy product consumption. COMPARISON(S): 02/18/2013, 11/09/2010 CREDIT PROCESSOR/MODEL: [email or web address] (S/N [id number]) FINDINGS: AP lumbar spine L2-L4 Total BMD is 1.038 g/uw0M-wtlvw is -1.4 Most recent prior BMD was 1.041 g/cm2 There has been a 0.3% decrease in BMD which is not statistically significant. Left Hip Current Total BMD is 0.816 g/jr4Y-hgpdq is -1.5 Most recent prior Total BMD was 0.820 g/cm2 There has been a 0.5% decreased in BMD which is not statistically significant. Current femoral neck BMD is 0.703 g/wl5L-prrgj is -2.4 Fracture risk assessment (FRAX): 10 [...] regular dairy product consumption. COMPARISON(S): 02/18/2013, 11/09/2010 CREDIT PROCESSOR/MODEL: [email or web address] (S/N [id number]) FINDINGS: AP lumbar spine L2-L4 Total BMD is 1.038 g/td7W-cgcpm is -1.4 Most recent prior BMD was 1.041 g/cm2 There has been a 0.3% decrease in BMD which is not statistically significant. Left Hip Current Total BMD is 0.816 g/ab0B-kwbfh is -1.5 Most recent prior Total BMD was 0.820 g/cm2 There has been a 0.5% decreased in BMD which is not statistically significant. Current femoral neck BMD is 0.703 g/zm6K-xmeup is -2.4 Fracture risk assessment (FRAX): 10 [...] Relevant to Health Maintenance [facility] Care Teams Program Strategist Relationship Specialty Start Date End Date Renata Mcdaniel APRN, BURNING SUPERVISOR [address] [place] [address] PCP - General Family Medicine 03/07/22
--- NOTE | 2024-09-17 09:59 | ECG_ITS ---
Test Date: 2024-09-17 10:37:36 Measurements Intervals [place] Rate: 62 P: 73 NE: 207 QRS: -27 QRSD: 94 T: 63 QT: 399 QTc: 407 Interpretive Statements SINUS RHYTHM WITH OCCASIONAL VENTRICULAR PREMATURE COMPLEXES BORDERLINE LEFT AXIS DEVIATION [QRS AXIS < -20] No previous ECG available for comparison Electronically Signed On 09-17-2024 11:08:02 CDT by Eloy Maya M.D.
[2024-09-17 10:07] LABS: Anion Gap 8 mmol/L (4-12); Blood Urea Nitrogen 21 mg/dL (7-17); Calcium 9.7 mg/dL (8.4-10.2); Carbon Dioxide 35 mmol/L (22-30); Chloride 98 mmol/L (98-107); Estimated Glomerular Filt Rate > 60; Glucose 178 mg/dL (65-110); Potassium 4.1 mmol/L (3.4-5.0); Sodium 141 mmol/L (137-145)
== END 2024-09-17 09:21 | disposition home or self-care (01) ==
PROVIDERS: PCP Nurse Practitioner Family; Visit Provider Anesthesiology
DX: I10 Essential (primary) hypertension (principal); Z01.818 Encounter for other preprocedural examination
CPT/HCPCS: 36415; 80048; 93005

== ENCOUNTER 2024-09-23 07:49 | Day surgery (SDC) | payer MEDICARE, SELFPAY ==
--- NOTE | 2024-09-23 06:49 | WPDHPUPDATE1 ---
History and Physical Update Update Date/Time: 09/23/24 06:49 Patient seen and examined in pre-operative holding area. No interval change in medical history or symptoms. Patient recalls previous discussion of benefits and alternatives to procedure. Continues to desire to proceed with right middle finger a1 sigrid release possible pipjoint capsulotomy and left middle trigger finger steroid injection . Reviewed procedure, post-op expectations and risks including but not limited to bleeding, infection, injury to tendon/nerve/vessel, decreased hand function, stiffness, RSD, no change or worsening of symptoms. I discussed the possible use of assistants and their participation in the case. Patient stated understanding and signed the consent form wishing to proceed.
--- NOTE | 2024-09-23 06:50 | W.PM.PROC2 ---
Procedure Note - Detailed Date of Procedure 09/23/24 Pre-op Diagnosis RT Middle Trigger Finger & Stiffness of Joint and left middle trigger finger Post-op Diagnosis Same Procedure Performed right middle finger a1 sigrid release, closed manipulation right middle finger pipjoint and dipjoint and left middle trigger finger steroid injeciton Surgeon Stephon Nevarez MD Crisis Intervention Counselor lashell medina pa-c Anesthesia MAC Description of Procedure INFORMED CONSENT: The patient was seen and examined and marked in the pre-op area.? The patient signed the consent form. PROCEDURE IN DETAIL:The patient taken back to OR on the stretcher in supine position. Time out performed with anesthesia, surgeon and staff agreeing on patient's name site and surgery to be performed SCDs were placed on the lower extremities and inflated. A tourniquet was placed on {right} upper extremity and antibiotics given IV After anesthesia administered sedation I injected {5}cc 1%lido and 0.5% marcaine plain at the operative site The?{right upper extremity}?was prepped and draped in sterile fashion the??{right upper extremity} was? exsanguinated with Esmarch bandage and tourniquet inflated to 250mmHg I made a longitudinal incision over the right middle finger A1 sigrid through skin and dermis with a 15 blade scalpel. Littler scissors were used to spread through subcutaneous tissue down to the A1 sigrid. The A1 sigrid was identified and initially incised with a 15 blade scalpel. Littler scissors were used to spread above it and below it proximally and distally and completed the transection entirely. After release of the A1 sigrid there was notable improvement in the ability to extend the right middle finger MP and PIP joint though significant contracture persisted. Ragnell retractor was used withdrawal the FDS and FDP tendons for inspection. The tendons were free of masses and synovitis and gliding smoothly in the sheath without crepitus or triggering. Next I further evaluated the stiffness of the PIP and DIP joints. With closed manipulation of the joints I was able to significantly improve the joint extension achieving approximately 5? of PIP joint flexion and 10? of the IP joint flexion.Now I was able to achieve near complete full extension of her finger and the decision was made not to proceed with open capsulotomy. I irrigated the incision with normsal saline and closed with 4-0 chromic. A dressing of xeroform, 4x4, rich, and a finger splint with pipj and dipj in extension was applied and secured with an eliseo bandage after the tourniquet was let down noting the hand was warm and well perfused. Next I injected 0.3cc 1%lidocaine plain and 0.7cc Betamethasone 6mg/ml injected into the left middle finger flexor sheath around a1 sigrid under sterile conditions. The patient was then awaken from anesthesia and transferred to the recovery room in stable condition.? Complications - none EBL- 0cc Disposition - home in stable conditions Lashell Medina PA-C was essential for positioning, retraction, closure and dressing placement [facility] Billing Surgery - Charge Forward: Surgery Billing ([id number] same for lashell adding modifier )
--- OUTSIDE RECORDS SUMMARY | 2024-09-23 08:07 | XMS_ITS | Clinical Summary ---
Author Organization [facility] [place] [facility] [address] [facility] Address [address] [place] [address] Care Team Providers Care Dipper Fish Name Role Phone Miscellaneous, Not In File Unavailable Unava ilable Violeta, Renata Cisneros PENSION CONSULTANT Primary Care Provider + [phone] Allergies Active Allergy Reactions Criticality Noted Date [...] Description 09/08/2024 2:45 PM CDT Office Visit [facility] [address] [place] [address] [address], [place] [address] Rebel Villalba NP Right hand pain (Primary Dx); Contracture of joint of finger of right hand 09/08/2024 7:50 AM CDT - 09/08/2024 11:59 PM CDT Hospital Encounter [facility] [address] [place] [address] [address] [place] [address] Discharge Disposition: Discharge to home or self care 09/08/2024 Telephone [facility] [address] [place] [address] [address] [place] [id number] Rebel Villalba NP 09/08/2024 Orders Only [facility] [address] [place] [address] [address] [place] [phone] Rebel Villalba NP Right hand pain (Primary [...] on file Legal Sex Female 11:51 PM NET APPLICATION SUPPORT SPECIALIST Gender Identity Not on file Sexual Orientation [...] noted at PIP long finger. Rebel Villalba PENSION CONSULTANT IMG XR PROCEDURES Final Result from Last 3 Months Insurance [employer] HMO REF Member Subscriber Plan / Payer (Ef fective 2019-Present) Name:Dianna Arana Relation to Subscriber:Self Name:Dianna Arana Payer ID:[id number] (NAIC) Type:[facility] MEDIC[facility] Address: [address] MEDICARE ADVANTAGE [employer] MEDICARE Advance Directives For more information, please contact: [phone] * Full Code (Latest Code Status on File) Date Activated Date Inactivated Comments 11/30/2019 10:34 PM 12/03/2019 10:43 PM Care Teams Dipper Fish Relationship Specialty Start Date End Date Violeta, Renata Cisneros NP [address] [place] [address] PCP - General Nurse Practitioner 09/25/21 Miscellaneous, Not In File 12/03/19
--- OUTSIDE RECORDS SUMMARY | 2024-09-23 08:08 | XMS_ITS | Data Portability ---
[facility] Organization [facility] Address [address] [place] [address] Care Team Providers Care Sample Stitcher Name Role Phone RENATA MONTGOMERY Primary Care Provider Unavailabl e Assessment No assessment recorded. Plan of Treatment Reminders Order Date Submit Date Provider Last Modified By Organization Details Last Modified Time Details Appointments ANY 15 2024 10:00A M Renata Montgomery, G[employer]OX [employer]ER, [employer]ORER-C Not available Not available Not available Lab lipid panel, serum 2023 024 [facility], [address] [place] [address], [id number], 03/30/2024 08:24:25 BMP, serum or plasma 2023 024 [facility], [address] [place] [address], [id number], 03/30/2024 08:24:27 CBC w/ auto diff 2023 024 [facility], [address] [place] [address], [place], [address], 03/30/2024 08:24:28 lipid panel, serum 2023 024 [facility], [address] [place] [address], [id number], 08/27/2023 03:08:30 BNP (B-type natriur etic peptide ), serum or plasma 2023 024 [facility], [address] [place] [address], [id number], 08/27/2023 10:37:18 CMP, serum or plasma 2023 024 [facility], [address] [place] [address] 2, [place], [address], 08/27/2023 03:08:31 CBC 2023 024 [facility], [address] [place] [address] 2, [place], [address], 08/27/2023 03:08:32 Referral hand surgeon referra l 2024 025 [facility], [address] , [address], [place], [address], 09/20/2024 11:54:08 hand surgeon referra l 2023 024 rosamaria Rogers MD, [address] [facility], [address], [place], [address], 05/25/2024 16:44:56 Procedures None recorde d. Surgeries None recorde d. Imaging None recorde d. Medication Orders oxybuty uri chlorid e ER 15 mg tablet, extende d release [address] [facility][id number], [address] [place], [place], [id number], 08/02/2024 11:32:32 oxybuty uri chlorid e ER 15 mg tablet, extende d release 24 hr 2023 024 [facility] #44053, [address] [place], [place], [id number], 11/27/2023 11:59:09 oxybuty uri chlorid e ER 15 mg tablet, extende d release 24 hr 2023 024 [facility] #37944, [address] [place], [place], [id number], 08/26/2023 12:08:44 oxybuty uri chlorid e ER 15 mg tablet, extende d release 24 hr 2022 09/05/ 023 [facility] #[id number], [address] [place], [place], [id number], 02/25/2023 11:35:35 Patient TargetsNo targets recorded. Patient Instructions Encounter Date Encounter Id Patient Instructions Last Modified By Organization Details Last Modified Time 02/25/2023 [id number] gastroesophageal reflux disease (GERD): care instructions Not [...] care: none Not available 02/25/2023 11:23:03 08/26/2023 [id number] gastroesophageal reflux disease (GERD): care instructions Not [...] care: none Not available 08/26/2023 11:55:47 11/27/2023 [id number] gastroesophageal reflux disease (GERD): care instructions Not [...] care: none Not available 11/27/2023 12:01:27 03/29/2024 [id number] influenza (flu) vaccine: care instructions Not available [...] care: none Not available 03/29/2024 11:04:08 08/02/2024 [id number] gastroesophageal reflux disease (GERD): care instructions Not [...] right middle finger Referring Physician: Renata Montgomery [facility], Encounter Date: 03/29/2024 Hand Surgeon Referral for Ac quired trigger finger of right middle finger Referring Physician: Renata Montgomery [facility], Encounter Date: 08/02/2024 Results Created Date Observation Date Name Description Value Unit Range Abnormal Flag Note LastModifiedBy Organization Detail LastModifiedTime 08/26/1908/26/2023 LIPID PANEL cholesterol, total 125 mg/dL 100-19 9 Not Available [facility] Department [address] [place], [address], 08/27/2023 03:08:30 08/26/19 24 08/26/2023 LIPID PANEL triglyceride s 107 mg/dL 0-149 Not Available [facility] Department [address] [place], [address], 08/27/2023 03:08:30 08/26/19 24 08/26/2023 LIPID PANEL HDL cholesterol 58 mg/dL 40-999 Not Available [facility] Department [address] [place], [address], 08/27/2023 03:08:30 08/26/19 24 08/26/2023 LIPID PANEL VLDL cholesterol oscar 21 mg/dL 5-40 Not Available [facility] Department [address] [place], [address], 08/27/2023 03:08:30 08/26/19 24 08/26/2023 LIPID PANEL LDL chol calc (nih) 60 mg/dL 0-99 Not Available [facility] Department [address] [place], [address], 08/27/2023 03:08:30 08/26/19 24 08/26/2023 COMP. METAB OLIC PANEL (14) glucose 109 mg/dL 70-99 above high normal Not Available [facility] Department [address] [place] [address], [address], 08/27/2023 03:08:31 08/26/19 24 08/26/2023 COMP. METAB OLIC PANEL (14) BUN 24 mg/dL 8-27 Not Available [facility] Department [address] [place] [address], [address], 08/27/2023 03:08:31 08/26/19 24 08/26/2023 COMP. METAB OLIC PANEL (14) creatinine 0.96 mg/dL 0.76-1 .27 Not Available [facility] Department [address] [place] [address], [address], 08/27/2023 03:08:31 08/26/19 24 08/26/2023 COMP. METAB [...] disre anca that value . Not Available [facility] Department [address] [place] [address], [address], 08/27/2023 03:08:31 08/26/19 24 08/26/2023 COMP. METAB OLIC PANEL (14) BUN/creatini ne ratio 25 10-28 Not Available [facility] Department [address] [place], [address], 08/27/2023 03:08:31 08/26/19 24 08/26/2023 COMP. METAB OLIC PANEL (14) sodium 143 mmol/ L 134-14 4 Not Available [facility] Department [address] [place], [address], 08/27/2023 03:08:31 08/26/19 24 08/26/2023 COMP. METAB OLIC PANEL (14) potassium 4.2 mmol/ L 3.5-5. 2 Not Available [facility] Department [address] [place], [address], 08/27/2023 03:08:31 08/26/19 24 08/26/2023 COMP. METAB OLIC PANEL (14) chloride 102 mmol/ L 96-106 Not Available [facility] Department [address] [place] [address], [address], 08/27/2023 03:08:31 08/26/19 24 08/26/2023 COMP. METAB OLIC PANEL (14) carbon dioxide, total 30 mmol/ L 20-29 above high normal Not Available [facility] Department [address] [place] [address], [address], 08/27/2023 03:08:31 08/26/19 24 08/26/2023 COMP. METAB OLIC PANEL (14) calcium 10.0 mg/dL 8.7-10 .3 Not Available [facility] Department [address] [place], [address], 08/27/2023 03:08:31 08/26/19 24 08/26/2023 COMP. METAB OLIC PANEL (14) protein, total 6.5 g/dL 6.0-8. 5 Not Available [facility] Department [address] [place] [address], [address], 08/27/2023 03:08:31 08/26/19 24 08/26/2023 COMP. METAB OLIC PANEL (14) albumin 3.9 g/dL 3.7-4. 7 Not Available [facility] Department [address] [place] [address], [address], 08/27/2023 03:08:31 08/26/19 24 08/26/2023 COMP. METAB OLIC PANEL (14) globulin, total 2.6 g/dL 1.5-4. 5 Not Available [facility] Department [address] [place] [address], [place], [address], 08/27/2023 03:08:31 08/26/19 24 08/26/2023 COMP. METAB OLIC PANEL (14) A/G ratio 1.0 1.2-2. 2 below low normal Not Available [facility] Department [address] [place] [address], [address], 08/27/2023 03:08:31 08/26/19 24 08/26/2023 COMP. METAB OLIC PANEL (14) bilirubin, total 0.5 mg/dL 0.0-1. 2 Not Available [facility] Department [address] [place] [address], [address], 08/27/2023 03:08:31 08/26/19 24 08/26/2023 COMP. METAB OLIC PANEL (14) alkaline phosphatase 27 IU/L 44-121 below low normal Not Available [facility] Department [address] [place] [address], [address], 08/27/2023 03:08:31 08/26/19 24 08/26/2023 COMP. METAB OLIC PANEL (14) AST (SGOT) 26 IU/L 0-40 Not Available [facility] Department [address] [place] [address], [address], 08/27/2023 03:08:31 08/26/19 24 08/26/2023 COMP. METAB OLIC PANEL (14) ALT (SGPT) 12 IU/L 0-32 Not Available [facility] Department [address] [place] [address], [address], 08/27/2023 03:08:31 08/26/19 24 08/26/2023 CBC, NO DIFFE RENTI AL/PL ATELE T WBC 7.1 x10e3 /uL 3.4-10 .8 Not Available [facility] Department [address] [place] [address], [address], 08/27/2023 03:08:32 08/26/19 24 08/26/2023 CBC, NO DIFFE RENTI AL/PL ATELE T RBC 4.14 x10e6 /uL 3.77-5 .28 Not Available [facility] Department [address] [place], [address], 08/27/2023 03:08:32 08/26/19 24 08/26/2023 CBC, NO DIFFE RENTI AL/PL ATELE T hemoglobin 13.1 g/dL 11.1-1 5.9 Not Available [facility] Department [address] [place], [address], 08/27/2023 03:08:32 08/26/1908/26/2023 CBC, NO DIFFE RENTI AL/PL ATELE T hematocrit 41.4 % 34.0-4 6.6 Not Available [facility] Department [address] [place], [address], 08/27/2023 03:08:32 08/26/19 24 08/26/2023 CBC, NO DIFFE RENTI AL/PL ATELE T MCV 100 fL 79-97 above high normal Not Available [facility] Department [address] [place], [address], 08/27/2023 03:08:32 08/26/19 24 08/26/2023 CBC, NO DIFFE RENTI AL/PL ATELE T MCH 31.6 pg 26.6-3 3.0 Not Available [facility] Department [address] [place], [address], 08/27/2023 03:08:32 08/26/19 24 08/26/2023 CBC, NO DIFFE RENTI AL/PL ATELE T MCHC 31.6 g/dL 31.5-3 5.7 Not Available [facility] Department [address] [place], [address], 08/27/2023 03:08:32 08/26/19 24 08/26/2023 CBC, NO DIFFE RENTI AL/PL ATELE T RDW 14.6 % 11.5-1 4.5 above high normal Not Available [facility] Department [address] [place], [address], 08/27/2023 03:08:32 08/26/19 24 08/26/2023 CBC, NO DIFFE RENTI AL/PL ATELE T NRBC 0 % 0-0 Not Available [facility] Department [address] [place], [address], 08/27/2023 03:08:32 08/26/19 24 08/27/2023 B-TYP E NATRI URETI C PEPTI DE B-type natriuretic peptide 182.5 pg/mL 0.0-10 0.0 above high normal Sieme ns [facility] XP metho dolog y Not Available [facility] ([facility]) [address] [place], [address], 08/27/2023 10:37:18 03/29/20 24 03/30/2024 LIPID PANEL cholesterol, total 159 mg/dL 100-19 9 Not Available [facility] ([facility]) [address] [place], [address], 03/30/2024 08:24:25 03/29/20 24 03/30/2024 LIPID PANEL triglyceride s 95 mg/dL 0-149 Not Available [facility] ([facility]) [address] [place], [address], 03/30/2024 08:24:25 03/29/20 24 03/30/2024 LIPID PANEL HDL cholesterol 67 mg/dL >39 Not Available [facility] ([facility]) [address] [place], [address], 03/30/2024 08:24:25 03/29/20 24 03/30/2024 LIPID PANEL VLDL cholesterol oscar 17 mg/dL 5-40 Not Available [facility] ([facility]) [address] [place], [address], 03/30/2024 08:24:25 03/29/2003/30/2024 LIPID PANEL LDL chol calc ([facility]) 75 mg/dL 0-99 Not Available [facility] ([facility]) [address] [facility], [place], [address], 03/30/2024 08:24:25 03/29/2003/30/2024 BASIC METAB OLIC PANEL (8) glucose 112 mg/dL 70-99 above high normal Not Available [facility] ([facility]) [address] [place], [address], 03/30/2024 08:24:26 03/29/2003/30/2024 BASIC METAB OLIC PANEL (8) BUN 18 mg/dL 8-27 Not Available [facility] ([facility]) [address] [place], [address], 03/30/2024 08:24:26 03/29/2003/30/2024 BASIC METAB OLIC PANEL (8) creatinine 0.83 mg/dL 0.57-1 .00 Not Available [facility] ([facility]) [address] [facility], [place], [address], 03/30/2024 08:24:26 03/29/2003/30/2024 BASIC METAB OLIC PANEL (8) eGFR 69 mL/mi n/1.7 3 >59 Not Available [facility] ([facility]) [address] [place], [address], 03/30/2024 08:24:26 03/29/2003/30/2024 BASIC METAB OLIC PANEL (8) BUN/creatini ne ratio 22 12-28 Not Available [facility] ([facility]) [address] [place], [address], 03/30/2024 08:24:26 03/29/2003/30/2024 BASIC METAB OLIC PANEL (8) sodium 143 mmol/ L 134-14 4 Not Available [facility] ([facility]) [address] [place], [address], 03/30/2024 08:24:26 03/29/2003/30/2024 BASIC METAB OLIC PANEL (8) potassium 4.3 mmol/ L 3.5-5. 2 Not Available [facility] ([facility]) [address] [place], [address], 03/30/2024 08:24:26 03/29/2003/30/2024 BASIC METAB OLIC PANEL (8) chloride 103 mmol/ L 96-106 Not Available [facility] ([facility]) [address], [place], [address], 03/30/2024 08:24:26 03/29/2003/30/2024 BASIC METAB OLIC PANEL (8) carbon dioxide, total 26 mmol/ L 20-29 Not Available [facility] ([facility]) [address] [place], [address], 03/30/2024 08:24:26 03/29/2003/30/2024 BASIC METAB OLIC PANEL (8) calcium 10.0 mg/dL 8.7-10 .3 Not Available [facility] ([facility]) [address] [place], [address], 03/30/2024 08:24:26 03/29/2003/30/2024 CBC WITH DIFFE RENTI AL/PL ATELE T WBC 7.7 x10e3 /uL 3.4-10 .8 Not Available [facility] ([facility]) [address] [place], [address], 03/30/2024 08:24:28 03/29/20 24 03/30/2024 CBC WITH DIFFE RENTI AL/PL ATELE T RBC 4.70 x10e6 /uL 3.77-5 .28 Not Available [facility] ([facility]) [address], [place], [address], 03/30/2024 08:24:28 03/29/2003/30/2024 CBC WITH DIFFE RENTI AL/PL ATELE T hemoglobin 14.5 g/dL 11.1-1 5.9 Not Available [facility] ([facility]) [address], [place], [address], 03/30/2024 08:24:28 03/29/2003/30/2024 CBC WITH DIFFE RENTI AL/PL ATELE T hematocrit 46.1 % 34.0-4 6.6 Not Available [facility] ([facility]) [address], [place], [address], 03/30/2024 08:24:28 03/29/2003/30/2024 CBC WITH DIFFE RENTI AL/PL ATELE T MCV 98 fL 79-97 above high normal Not Available [facility] ([facility]) [address] [place], [address], 03/30/2024 08:24:28 03/29/2003/30/2024 CBC WITH DIFFE RENTI AL/PL ATELE T MCH 30.9 pg 26.6-3 3.0 Not Available [facility] ([facility]) [address], [place], [address], 03/30/2024 08:24:28 03/29/2003/30/2024 CBC WITH DIFFE RENTI AL/PL ATELE T MCHC 31.5 g/dL 31.5-3 5.7 Not Available [facility] ([facility]) [address], [place], [address], 03/30/2024 08:24:28 03/29/2003/30/2024 CBC WITH DIFFE RENTI AL/PL ATELE T RDW 12.0 % 11.7-1 5.4 Not Available [facility] ([facility]) [address], [place], [address], 03/30/2024 08:24:28 03/29/20 24 03/30/2024 CBC WITH DIFFE RENTI AL/PL ATELE T platelets 257 x10e3 /uL 150-45 0 Not Available [facility] ([facility]) [address], [place], [address], 03/30/2024 08:24:28 03/29/20 24 03/30/2024 CBC WITH DIFFE RENTI AL/PL ATELE T neutrophils 64 % notest ab. Not Available [facility] ([facility]) [address], [place], [address], 03/30/2024 08:24:28 03/29/20 24 03/30/2024 CBC WITH DIFFE RENTI AL/PL ATELE T lymphs 21 % notest ab. Not Available [facility] ([facility]) [address], [place], [address], 03/30/2024 08:24:28 03/29/2003/30/2024 CBC WITH DIFFE RENTI AL/PL ATELE T monocytes 9 % notest ab. Not Available [facility] ([facility]) [address], [place], [address], 03/30/2024 08:24:28 03/29/20 24 03/30/2024 CBC WITH DIFFE RENTI AL/PL ATELE T eos 4 % notest ab. Not Available [facility] ([facility]) [address], [place], [address], 03/30/2024 08:24:28 03/29/20 24 03/30/2024 CBC WITH DIFFE RENTI AL/PL ATELE T basos 1 % notest ab. Not Available [facility] ([facility]) [address], [place], [address], 03/30/2024 08:24:28 03/29/20 24 03/30/2024 CBC WITH DIFFE RENTI AL/PL ATELE T neutrophils (absolute) 5.1 x10e3 /uL 1.4-7. 0 Not Available [facility] ([facility]) [address], [place], [address], 03/30/2024 08:24:28 03/29/2003/30/2024 CBC WITH DIFFE RENTI AL/PL ATELE T lymphs (absolute) 1.6 x10e3 /uL 0.7-3. 1 Not Available [facility] ([facility]) [address], [place], [address], 03/30/2024 08:24:28 03/29/20 24 03/30/2024 CBC WITH DIFFE RENTI AL/PL ATELE T monocytes(ab solute) 0.7 x10e3 /uL 0.1-0. 9 Not Available [facility] ([facility]) [address], [place], [address], 03/30/2024 08:24:28 03/29/2003/30/2024 CBC WITH DIFFE RENTI AL/PL ATELE T eos (absolute) 0.3 x10e3 /uL 0.0-0. 4 Not Available [facility] ([facility]) [address], [place], [address], 03/30/2024 08:24:28 03/29/2003/30/2024 CBC WITH DIFFE RENTI AL/PL ATELE T baso (absolute) 0.1 x10e3 /uL 0.0-0. 2 Not Available [facility] ([facility]) [address], [place], [address], 03/30/2024 08:24:28 03/29/20 24 03/30/2024 CBC WITH DIFFE RENTI AL/PL ATELE T immature granulocytes 1 % notest ab. Not Available [facility] ([facility]) [address], [place], [address], 03/30/2024 08:24:28 03/29/20 24 03/30/2024 CBC WITH DIFFE RENTI AL/PL ATELE T immature grans (abs) 0.0 x10e3 /uL 0.0-0. 1 Not Available [facility] ([facility]) [address], [place], [address], 03/30/2024 08:24:28 09/16/19 25 09/14/2024 XR, hand No observ ation record ed. [facility] [address] [facility] [address], [place], [address], 09/15/2024 14:03:08 Result Notes None recorded. Problems Name Problem SNOMED Code Status Onset Date Resolution Date Notes Provider Name and Address Organization Details Recorded Time Pain in right thumb 45553088019 60162 Active 2017 Not Available [facility] 4 23:39:42 Vitamin D deficienc y 57522280 Active 2017 Not Available [facility] 4 23:39:42 Edema of lower extremity 928109167 Active 2019 Not Available [facility] 4 23:39:42 Abnormali ty of nail of toe 279558896 Active 2019 Not Available [facility] 4 23:39:43 Overactiv e urinary bladder 987652210 Active 2019 Not Available [facility] 4 23:39:43 Mild memory disturban ce 213299501 Active 2021 Not Available [facility] 4 23:39:42 Essential hypertens ion 79378773 Active Not Available [facility] 4 23:39:43 Hyperlipi demia 34309169 Active Not Available [facility] 4 23:39:43 Osteopeni a 860926847 Completed 01/13/2017 Renata Montgomery APN, LUISC Attn: Accounting ,[address] [place], [place], [address] [place] [address] , [facility] 7 11:10:51 Diverticu litis of colon 319564187 Active Not Available 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 4 23:39:43 History of cerebrova scular accident 710309065 Active Not Available [facility] 4 23:39:42 Gastroeso phageal reflux disease 171073351 Active Not Available [facility] 4 23:39:42 Obesity 470216425 Active Not Available [facility] 4 23:39:42 Acquired trigger finger of right middle finger 54073046968 9105 Active 2023 Renata Montgomery APN, FNP-C Attn: Accounting ,[address] [facility], [place], [place], [address] [place] [address] , [facility] 4 11:47:51 Random blood sugar above reference range 429897844 Active Not Available [facility] 4 23:39:42 Cough 30830241 Completed 01/13/2017 Renata Montgomery APN, FNP-C Attn: Accounting ,[address] [facility], [place], [place], [address] [place] [address] , [facility] 7 11:10:45 Seasonal allergy 299234805 Active Not Available [facility] 4 23:39:42 Advance directive discussed with patient [id number] Completed 05/05/2018 Renata Montgomery APN, FNP-C Attn: Accounting ,[address] [facility], [place], [address] [place] [address] , [facility] 8 11:36:28 Osteoarth ritis 896294762 Active [address] [facility] 4 23:39:42 Excessive daytime sleepines s - normal night sleep 265089604 Active [address] [facility] 4 23:39:42 Problem Notes None recorded. Procedures Surgical History Date Name Laterality Status Provider Name and Address Organization Details Recorded Time 05/23/19 96 Cholecystectomy completed Renata Montgomery APN, [employer]-C Attn: Accounting, [address] [facility], [place], [address], [place] [facility] 07/08/2017 15:56:16 06/23/18 67 Hysterectomy completed Angelika Sheldon CT - [facility] 09/18/2016 11:34:25 Dilation and Curettage completed Yuliya Baumann CT - [facility] 08/17/2014 12:37:34 Imaging Results Imaging Date Name Status LastModified by Organiz ation Details LastModified Time 09/14/2024 XR, hand completed [facility] [address] [facility] [address], [place], [address], 09/15/2024 14:03:08 Procedure Notes None recorded. Medical Equipment None Reported. Allergies Allergen ID Allergen Name Allergen Category Reaction Reaction Severity Criticality Documentation Date Start Date Code Code System Note Provider Name and Address Organization Details Recorded Time 395247 lincomyci n medicatio n rash Not available high 08/02/20242019 6398 RxNorm Not Available Not Available Not Available 344537 demeclocy canales medicatio n rash Not available high 08/02/20242019 3154 RxNorm Not Available Not Available Not Available 27152 Product containin g penicilli n (product) medicatio n rash severe Not available 08/17/2014 02737 8001 SNOMED Not Available Not Available Not Available 56720 demeclocy canales hydrochlo ride medicatio n rash severe Not available 01/13/2017 39455 RxNorm Not Available Not Available Not Available [...] Updated DateTime 3 162.56 cm 32.3 kg/m2 42603.3 7 g 95 % 95 % 82 /min 16 /min 97.5 [degF] 126 mm[Hg] 76 mm[Hg] Leanna Higgins [facility] 3 11:19:54 Date Recorded Body height Body mass index (BMI) Body weight Respiratory rate Body temperature Oxygen saturation Oxygen saturation in Arterial blood by Pulse oximetry Heart rate Systolic blood pressure Diastolic blood pressure Provider Name and Address Organization Details Last Updated DateTime 4 162.56 cm 31.6 kg/m2 98749 g 16 /min 97.8 [degF] 95 % 95 % 70 /min 120 mm[Hg] 68 mm[Hg] Leanna Higgins Seferino [facility] 4 11:46:29 Date Recorded Body height Body mass index (BMI) Body weight Oxygen saturation Oxygen saturation in Arterial blood by Pulse oximetry Heart rate Respiratory rate Body temperature Systolic blood pressure Diastolic blood pressure Provider Name and Address Organization Details Last Updated DateTime 4 162.56 cm 31 kg/m2 55082.5 g 95 % 95 % 83 /min 16 /min 97.7 [degF] 124 mm[Hg] 82 mm[Hg] Deanna Cooper MA [facility] 4 11:27:54 Date Recorded Body height Body mass index (BMI) Body weight Oxygen saturation Oxygen saturation in Arterial blood by Pulse oximetry Heart rate Respiratory rate Body temperature Systolic blood pressure Diastolic blood pressure Provider Name and Address Organization Details Last Updated DateTime 4 162.56 cm 31.8 kg/m2 23094.5 9 g 95 % 95 % 82 /min 16 /min 97.3 [degF] 110 mm[Hg] 76 mm[Hg] EVARISTO Donnelly [facility] 4 10:57:23 Date Recorded Body height Body mass index (BMI) Body weight Oxygen saturation Oxygen saturation in Arterial blood by Pulse oximetry Body temperature Respiratory rate Heart rate Systolic blood pressure Diastolic blood pressure Provider Name and Address Organization Details Last Updated DateTime 5 162.56 cm 31.2 kg/m2 23149.8 1 g 95 % 95 % 97.5 [degF] 18 /min 110 /min 142 mm[Hg] 86 mm[Hg] EVARISTO Donnelly [place] - [facility] 5 11:36:30 Social History Question Answer Notes LastModified by Organizat ion Details LastModified Time Tobacco Smoking Status Former Smoker quit 1995 Ani TubbsBRYANT [place], [place] - [facility] 11/21/2021 09:25:18 Do You Have An Advance Directive? No Information not available 05/04/2019 What Is Your Level Of Alcohol Consumption? None Information not available 12/14/2019 Are You Blind Or Do You Have Difficulty Seeing? No Glasses Information not available 04/02/2021 What Is Your Level Of Caffeine Consumption? Moderate Coffee [email or web address] Information not available 09/26/2020 How Much Tobacco [...] available 11/01/2019 Are You Currently Employed? No [email or web address] Information not available 09/26/2020 Are You Deaf [...] What Is Your Relationship Status? Single Boyfriend [email or web address] Information not available 09/26/2020 Do You Use Your Seat Belt Or Car Seat Routinely? Yes [email or web address] Information not available 09/26/2020 Seat Belts Used Routinely Yes Information not available 08/17/2014 Are You Sexually Active? No Information not available 12/29/2020 Smoke Alarm In Home Yes Information not available 08/17/2014 Do You Have Smoke And Carbon Monoxide Detectors In Your Home? Yes [email or web address] Information not available 09/26/2020 Are You Passively Exposed To Smoke? No [email or web address] Information not available 09/26/2020 Do You Or Have You Ever Used Smokeless Tobacco? Never Used Smokeless Tobacco Information not available 05/04/2019 How Much Tobacco Do You Smoke? No [email or web address] Information not available 09/24/2017 General Stress Level Low Information not available 08/17/2014 Do You Feel Stressed (tense, Restless, Nervous, Or Anxious, Or Unable To Sleep At Night)? [id number] [email or web address] Information not available 09/26/2020 Do You Use Any Illicit Or Recreational Drugs? No [email or web address] Information not available 09/26/2020 Do You Use Sunscreen Routinely? No Information not available 05/04/2019 Has Tobacco Cessation Counseling Been Provided? Yes [email or web address] Information not available 02/21/2022 On What Date Was Tobacco Cessation Counseling Provided? 08/02/2024 Information not available 08/02/2024 How Many Years Have You Smoked Tobacco? 30 Information not available 08/17/2014 Do You Or Have You Ever Used Any Other Forms Of Tobacco Or Nicotine? No [email or web address] Information not available 08/21/2021 Sex: Female Functional Status Question Answer Note LastModified by Organization D etails LastModified Time Are you able to care for yourself? Yes [email or web address] Information n ot available 09/26/2020 What is your exercise level? None [email or web address] Information not available 02/25/2023 Mental Status None [...] History Condition Response Coronary Artery Disease N Atrial Fibrillation N High Blood Pressure Y Thyroid Problems Y Kidney or Bladder Problems Y Depression N COPD N Blood Clots N GI Problems N Skin Problems N Eating Disorder N Anemia N Heart Attack ([place]) N Diabetes N Anxiety Disorder N Muscle, Joint, or Bone Problems N Seizures/Epilepsy N Acid Reflux (GERD) Y Cancer Y Stroke N Allergies N Asthma N High Cholesterol Y Hepatitis N Liver Disease N Schizophrenia N Headaches N Heart Failure N Gynecological History Statement/Question Response Current Control Method Menopause Date of Last Mammogram LMP Unknown Obstetrics History GPAL:G 0 P 0 0 0 0 Immunizations Vaccine Type Date Status Note Provider Nam e and Address Organization Details Recorded Time Tdap 9 completed Not Available [facility] 07/01/2023 23:39:43 Influenza, split virus, trivalent, preservative 3 completed Not Available [facility]01/[facility]23 23:39:43 Influenza, adjuvanted, quadrivalent, PF 1 completed Not Available [facility] 07/01/2023 23:39:43 Influenza, high-dose, quadrivalent, PF 0 completed Not Available [facility] 07/01/2023 23:39:43 Influenza, split virus, trivalent, preservative 4 completed Not Available [facility] 07/01/2023 23:39:43 Influenza, split virus, quadrivalent, preservative 6 completed Not Available [facility] 07/10/2019 02:32:32 COVID-19, mRNA, LNP-S, bivalent, PF, 50 mcg/0.5 mL or 25mcg/0.25 mL dose 2 completed Not Available [facility] 07/01/2023 23:39:43 Influenza, high-dose, quadrivalent, PF 3 completed Renaat Montgomery [employer], [employer] Attn: [address] [place], [address], [place] [facility] 08/26/2023 11:52:56 COVID-19, mRNA, LNP-S, PF, 50 mcg/0.5 mL 3 completed DEAN RuizN, [employer] Attn: [address] [place], [address], [place] [facility] 08/26/2023 11:52:56 Influenza, split virus, quadrivalent, preservative 7 completed Not Available [facility] 07/10/2019 02:39:19 Influenza, split virus, quadrivalent, preservative 8 completed Not Available [facility] 07/10/2019 02:36:32 Influenza, split virus, quadrivalent, preservative 9 completed Not Available [facility] 07/10/2019 02:38:44 COVID-19, mRNA, LNP-S, PF, [...] high-dose, trivalent, PF 4 completed Renata Montgomery, [employer], [employer] Attn: Account[address] [place], [address], [place] [facility] 03/30/2024 14:07:35 pneumococcal polysaccharide PPV23 1 completed Not Available [facility] 07/01/2023 23:39:43 zoster live 1 completed Not Available [facility] 07/01/2023 23:39:43 COVID-19, mRNA, LNP-S, PF, 50 mcg/0.5 mL 5 completed Renata Montgomery, [employer], [employer] Attn: [address] [place], [address], [place] [facility] 08/03/2024 10:34:00 Influenza, split virus, quadrivalent, preservative 5 completed Not Available [facility] 07/10/2019 02:32:11 Pneumococcal conjugate PCV 13 5 completed Not Available [facility] 07/10/2019 02:31:40 Past Encounters Encounter ID Performer Location Encounter Start Date Encounter Closed Date Diagnosis/Indication Diagnosis SNOMED-CT Code Diagnosis ICD10 Code Diagnosis Note [id number] Pat Perez (Adult Med) [address] [place] [address] 08/17/2014 11:33:09 08/17/2014 13:08:35 Essential hypertension 81223860 well controlled . continue same medication s Hyperlipidemia 89972229 continue Lovastatin 40 mg po once daiy. Gastroesop hageal reflux disease 789171351 Stable on Ranitidine . [id number] Lynda Fleming [facility] (Adult Med) [address] [facility] [place] [address] 12/15/2014 09:44:51 12/15/2014 11:00:47 Essential hypertension 68403118 well controlled . continue same medication s Hyperlipidemia 29983644 continue Lovastatin 40 mg po once daiy. Gastroesop hageal reflux disease 568516939 Stable on Ranitidine . Obesity 507924577 Advise d patient to do regular exercise like walking,lo w fat,low carb diet and weight reduction. Osteopenia 696869162 Las t Dexa scan was dne on 02/18/13. Contiue calcium and Vitamin D. [id number] [facility] (Adult Med) [address] [place] [address] 06/08/2015 10:00:29 06/09/2015 14:26:43 Essential hypertension 35453101 I10 well controlled . continue same medication s Hyperlipidemia 18939684 E78.2 continue Lovastatin 40 mg po once daiy. Osteopenia 722098449 M85 .80 Last Dexa scan was dne on 02/18/13. Contiue calcium and Vitamin D. Influenza vaccine needed [id number] 106 Z23 Administra tion of pneumococcal vaccine 08786907 Z23 Obesity 607584275 E66.09 Advised patient to do regular exercise like walking,lo w fat,low carb diet and weight reduction. [id number] Renata Montgomery APN, FNP-C [facility] (Adult Med) [address] [place] [address] 01/18/2016 10:22:45 01/18/2016 14:23:27 Adult health examination 865587490 Z00.01 Gastroesop hageal reflux disease 156331875 K21.9 Essential hypertension 50825732 I10 Hyperlipidemia 66933825 E78.5 [id number] Renata Montgomery APN, FNP-C [facility] (Adult Med) [address] [place] [address] 04/03/2016 09:23:12 04/03/2016 12:47:42 Cough 45363676 R05 Seasonal allergy 1800073 04 J30.2 Influenza vaccine needed 7651684185 106 Z23 Obesity 381832150 E66.9 Advance di rective discussed with patient 225299045 Z71.89 [id number] Renata Montgomery APN, FNP-C [facility] (Adult Med) [address] [place] [address] 05/21/2016 10:22:28 05/21/2016 13:45:46 Essential hypertension 63521440 I10 Continue on metoprolol tartrate 25 mg BID Hyperlipidemia 85606622 E78.5 Taking lovastatin 40 mg and fenofibrat e 160 mg Gastroesop hageal reflux disease 008450803 K21.9 Taking Ranitidine 150 mg BID. Random blo od sugar above reference range 848604969 R73.9 Recheck labs today. Osteopenia 092525540 M85 .80 Female str ess incontinence 07528428 N39.3 Continue with oxybutyin chloride 5 mg. Screening for malignant neoplasm of colon 774745863 Z12.11 History of cerebrovascular accident 739514545 Z86.73 Continue with Plavix 75mg. [id number] Renata Montgomery APN, FNP-C [facility] (Adult Med) [address] [place] [address] 09/18/2016 10:52:13 09/18/2016 15:51:48 Gastroesophageal reflux disease 735387409 K21.9 Taking Ranitidine 150 mg BID. History of cerebrovascular accident 773510950 Z86.73 Continue with Plavix 75 mg. Obesity 212755219 E66.9 discussed increasing activity level to improve weight and mobility Hyperlipidemia 52957592 E78.5 Cont taking lovastatin 40 mg and fenofibrat e 160 mg Essential hypertension 18890723 I10 Continue on metoprolol tartrate 25 mg BID Female str ess incontinence 48646846 N39.3 Continue with oxybutyin chloride 5 mg. May increase to BID. Osteoarthritis 568395421 M19.90 right hip pain, takes OTC once in a while, encouraged increased mobility [id number] Renata Montgomery APN, FNP-C [facility] (Adult Med) [address] [place] [address] 01/13/2017 10:28:00 01/14/2017 09:47:12 Osteoarthritis 640906398 M19.90 right hip pain, takes OTC once in a while, encouraged increased mobility Obesity 222916100 E66.9 discussed increasing activity level to improve weight and mobility Hyperlipidemia 04282178 E78.5 Cont taking lovastatin 40 mg and fenofibrat e 160 mg Essential hypertension 18607027 I10 Continue on metoprolol tartrate 25 mg BID History of cerebrovascular accident 841254251 Z86.73 Continue with Plavix 75 mg. Gastroesop hageal reflux disease 861464047 K21.9 Taking Ranitidine 150 mg BID. Female str ess incontinence 75493652 N39.3 Continue with oxybutyin chloride 5 mg. May increase to BID. Advance di rective discussed with patient 661557347 Z71.89 Excessive daytime sleepiness - normal night sleep 096679894 G47.19 score of 9-higher than normal daytime sleepiness ; dwp sleep habits and hygeine. does not wish to have sleep study at this time [id number] Renata Montgomery APN, ANA [facility] (Adult Med) [address] [place] [address] 05/26/2017 10:53:28 05/27/2017 13:36:44 Essential hypertension 29861768 I10 Continue on metoprolol tartrate 25 mg BID Hyperlipidemia 00848882 E78.5 Cont taking lovastatin 40 mg and fenofibrat e 160 mg Gastroesop hageal reflux disease 652822969 K21.9 Taking Ranitidine 150 mg BID. Female str ess incontinence 33227861 N39.3 Continue with oxybutyin chloride 5 mg. May increase to BID. or take qam plus 1/2 tab 2-3 days a week; Osteoarthritis 815753169 M19.90 right hip pain, takes OTC once in a while, encouraged increased mobility Obesity 019578044 E66.9 discussed increasing activity level to improve weight and mobility History of cerebrovascular accident 173989920 Z86.73 Continue with Plavix 75 mg. Administra tion of influenza vaccine 95877727 Z23 [id number] Renata Montgomery APN, A[facility] (Adult Med) [address] [place] [address] 07/08/2017 14:37:30 07/09/2017 18:04:28 Dysuria 05019966 R30.0 urine clear, dwp to cont to drink water and notify office if return of pain/sympt oms Low back pain 168320984 M54.5 cont with conservati ve measures to reduce pain/spasm s [id number] Renata Montgomery APN, ANA [facility] (Adult Med) [address] [place] [address] 09/24/2017 10:58:20 09/25/2017 08:31:54 Essential hypertension 03817472 I10 Continue on metoprolol tartrate 25 mg BID Hyperlipidemia 29075240 E78.5 Cont taking lovastatin 40 mg and fenofibrat e 160 mg Gastroesop hageal reflux disease 656583280 K21.9 Taking Ranitidine 150 mg BID. Female str ess incontinence 46805389 N39.3 Continue with oxybutyin chloride 5 mg. May increase to BID. or take qam plus 1/2 tab 2-3 days a week; Osteoarthritis 710706620 M19.90 right hip pain, takes OTC once in a while, encouraged increased mobility Obesity 291941935 E66.9 discussed increasing activity level to improve weight and mobility History of cerebrovascular accident 396643260 Z86.73 Continue with Plavix 75 mg. Hyperglycemia 05240268 R 73.9 recheck a1c Vitamin D deficiency 347 82630 E55.9 recheck, may cont replacemen t Pain in right thumb 1076 217409 671380 M79.644 right thumb pain started 2 weeks ago, painful and pops at IP joint when extending; obtain xray thumb, plan pending results, use thumb splint, ice as needed [id number] Renata Montgomery APN, [facility] (Adult Med) [address] [place] [address] 01/28/2018 11:20:57 01/28/2018 14:24:11 Essential hypertension 94985517 I10 initially high today, fine on recheck;Co ntinue on metoprolol tartrate 25 mg BID Hyperlipidemia 84018350 E78.5 Cont taking lovastatin 40 mg and fenofibrat e 160 mg Gastroesop hageal reflux disease 865598127 K21.9 cont Ranitidine 150 mg BID. Hyperglycemia 22615436 R 73.9 recheck a1c in 6 months Vitamin D deficiency 347 47969 E55.9 recheck, may cont replacemen t to raise and maintain level above 30 Female str ess incontinence 85440650 N39.3 Continue with oxybutynin chloride 5 mg. May increase to BID. or take qam plus 1/2 tab 2-3 days a week; Osteoarthritis 857614672 M19.90 right hip pain, takes OTC once in a while, encouraged increased mobility Obesity 509429246 E66.9 discussed increasing activity level to improve weight and mobility History of cerebrovascular accident 654462509 Z86.73 Continue with Plavix 75 mg. Endocrine/ metabolic screening 504951918 Z13.228 Excessive daytime sleepiness - normal night sleep 875245715 G47.19 score of 9-higher than normal daytime sleepiness ; dwp sleep habits and hygeine. does not wish to have sleep study at this time; would like to try vit B12 OTC [id number] Renata Montgomery APN, [employer] [facility] (Adult Med) [address] [place] [address] 05/05/2018 11:00:42 05/05/2018 17:13:57 Administration of influenza vaccine 72212324 Z23 [facility] handout provided Essential hypertension 07034848 I10 Continue on metoprolol tartrate 25 mg BID Hyperlipidemia 98457001 E78.5 Cont taking lovastatin 40 mg and fenofibrat e 160 mg Gastroesop hageal reflux disease 582962312 K21.9 cont Ranitidine 150 mg BID. Hyperglycemia 92771573 R 73.9 recheck a1c in 3 months Vitamin D deficiency 347 53081 E55.9 may cont replacemen t to raise and maintain level above 30 Female str ess incontinence 57273115 N39.3 Continue with oxybutynin chloride 5 mg. May increase to BID. or take qam plus 1/2 tab 2-3 days a week; Osteoarthritis 963683514 M19.90 right hip pain, takes OTC once in a while, encouraged increased mobility Obesity 580503195 E66.9 discussed increasing activity level to improve weight and mobility History of cerebrovascular accident 594374422 Z86.73 Continue with Plavix 75 mg. Excessive daytime sleepiness - normal night sleep 103771044 G47.19 score of 9-higher than normal daytime sleepiness ; dwp sleep habits and hygeine. does not wish to have sleep study at this time; Cough 36811000 R05 taking tessalon perles from [place] [id number] Renata Montgomery APN, [facility] (Adult Med) [address] [place] [address] 09/07/2018 14:15:51 09/08/2018 09:41:55 Gastroesophageal reflux disease 139905244 K21.9 cont Ranitidine 150 mg BID. Vitamin D deficiency 347 80714 E55.9 may cont replacemen t to raise and maintain level above 30 Hyperlipidemia 67643859 E78.5 Cont taking lovastatin 40 mg and fenofibrat e 160 mg Essential hypertension 78730660 I10 Continue on metoprolol tartrate 25 mg BID Female str ess incontinence 83772700 N39.3 Continue with oxybutynin chloride 5 mg. May increase to BID. or take qam plus 1/2 tab 2-3 days a week; Hyperglycemia 67553891 R 73.9 due for lab Osteoarthritis 916825905 M19.90 right hip pain, takes OTC once in a while, encouraged increased mobility Obesity 248965248 E66.9 discussed increasing activity level to improve weight and mobility History of cerebrovascular accident 984590307 Z86.73 Continue with Plavix 75 mg. Cough 72991200 R05 taking tessalon perles prn Upper resp iratory infection 31155332 J06.9 dwp to increase fluids, OTC cold med prn, rest, good handwashin g; dwp to call if not improving or if condition worsens; [id number] Renata Montgomery APN, FNP-C [facility] (Adult Med) [address] [place] [address] 01/04/2019 15:07:52 01/05/2019 12:33:01 Essential hypertension 79401939 I10 Continue on metoprolol tartrate 25 mg BID, did not take his medication today Gastroesop hageal reflux disease 744152750 K21.9 cont Ranitidine 150 mg BID. Vitamin D deficiency 347 47315 E55.9 may cont replacemen t to raise and maintain level above 30 Hyperlipidemia 74820784 E78.5 Cont taking lovastatin 40 mg and fenofibrat e 160 mg Female str ess incontinence 32285333 N39.3 Continue with oxybutynin chloride 5 mg. May increase to BID. or take qam plus 1/2 tab 2-3 days a week; Hyperglycemia 61562456 R 73.9 due for lab Osteoarthritis 156098386 M19.90 right hip pain, takes OTC once in a while, encouraged increased mobility Obesity 745971374 E66.9 discussed increasing activity level to improve weight and mobility History of cerebrovascular accident 325363589 Z86.73 Continue with Plavix 75 mg. [id number] Renata Montgomery APN, FNP-C [facility] (Adult Med) [address] [place] [address] 05/04/2019 11:08:01 05/05/2019 10:45:21 Administration of influenza vaccine 67335179 Z23 [facility] handout provided Influenza- like symptoms 053968017 R68.89 pt with aches and flu like symptoms, neg test Viral syndrome 759138486 B34.9 dwp to increase fluids, OTC cold med prn, rest, good handwashin g [id number] Renata Montgomery APN, FNP-C [facility] (Adult Med) [address] [place] [address] 05/11/2019 14:40:21 05/19/2019 08:57:10 Dysuria 88196173 R30.0 urine dip pos leuk, will send for culture and notify pt if abx change needed, will start macrobid; dwp to increase fluids and RTO if increase in pain or fever or other changes occur. [id number] Renata Montgomery APN, FNP-C [facility] (Adult Med) [address] [facility] [place] [address] 07/27/2019 12:07:39 07/28/2019 08:03:30 Acute sinusitis 62728693 J01.90 sinus pressure with purulent drainage, start bactrim Acute bronchitis 9463213 2 J20.9 rhonchi present, will cover with abx, tussin cough Gastroesop hageal reflux disease 682358099 K21.9 stopped Ranitidine 150 mg BID. d/t recall, taking otc and doing ok Female str ess incontinence 12185390 N39.3 pt stopped oxybutynin chloride as it was not helping, will send myrbetriq 25 mg qd, worse lately with coughing Essential hypertension 61278950 I10 Continue on metoprolol tartrate 25 mg BID, did take her medication today but also taking decongesta nt, dwp increase fluids and decrease sdium intake as well [id number] Renata Montgomery APN, FNP-C [facility] (Adult Med) [address] [place] [address] 11/01/2019 10:54:13 11/02/2019 07:24:02 Abnormality of nail of toe 277607241 L60.8 reports she cannot cut on own anymorebil ateral edemapt declines podiatry referral at this time Edema of l ower extremity 248693908 R60.0 dwp starting water pill, pt agrees to low dosestart with half tablet hctzlow salt diet [id number] Renata Montgomery APN, FNP-C [facility] (Adult Med) [address] [place] [address] 11/22/2019 10:31:34 11/23/2019 10:51:56 Osteoarthritis 188066135 M19.90 right hip pain, takes OTC once in a while, encouraged increased mobility Frontal headache 7643959 05 R51 right side above eye, goes away with tylenol; pt declines rx for this Allergic rhinitis 996409 04 J30.9 dwp trial antihistam ine [id number] ALISHA Samaniego [address] [place] [address] 11/24/2019 12:14:21 11/25/2019 09:25:52 Suspected COVID-19 225379595 Z03.818 D/w pt the current pandemic of COVID-19 and call for social isolation in order to blunt the curve and minimize risk and spread. Encouraged patient and family to take restrictio ns seriously. They have verbalized understand ing of such. Viral syndrome 291852631 B34.9 [id number] Renata Montgomery APN, FNP-C [facility] (Adult Med) [address] [place] [address] 12/14/2019 08:33:16 12/15/2019 10:50:15 Dyspnea 994250605 R06.00 dwp pft advised, pt not using inhalers, r/o copd vs chf, still need echo results Hospital i npatient stay within past 30 days 1049544307 106 Z76.89 reviewed with pt; still need remaining chart records, echo? Edema of l ower extremity 342842551 R60.0 dwp starting water pill, pt agrees; legs not as swollen as they were previously , bnp elevated in hospital, likely CHF, unsure if echo done, pt believes they did, will get recordssta rt with half tablet hctzlow salt diet Abnormalit y of nail of toe 969902245 L60.8 reports she cannot cut on own anymorebil ateral edemapt declined podiatry referral in past and now wants to go [id number] Renata Montgomery APN, [facility] (Adult Med) [address] [place] [address] 03/14/2020 08:05:35 03/16/2020 16:17:41 Edema of lower extremity 856371880 R60.0 dwp starting water pill, pt agrees; legs not as swollen as they were previously , bnp elevated in hospital, likely CHF, unsure if echo done, pt believes they did, will get recordhctz not helping; will start lasixlow salt diet Hyperlipidemia 75983281 E78.5 Cont taking lovastatin 40 mg and fenofibrat e 160 mg [id number] Renata Montgomery APN, [facility] (Adult Med) [address] [place] [address] 05/03/2020 08:10:01 05/04/2020 14:45:54 Edema of lower extremity 361130679 R60.0 BNP improved on recent lab down from 1600 to 160cont lasix to 40 mg, along with K 10 mEq low salt diet Hyperlipidemia 00659359 E78.5 Cont taking lovastatin 40 mg and fenofibrat e 160 mg Essential hypertension 79214671 I10 Continue on metoprolol tartrate 25 mg BID, dwp increase fluids and decrease sodium intake as well Gastroesop hageal reflux disease 593380871 K21.9 stopped Ranitidine 150 mg BID. d/t recall, taking otc and doing ok Overactive urinary bladder 612265438 N32.81 cont oxybutynin 5 mg bid [id number] Renata Montgomery APN, FNP-C [facility] (Adult Med) [address] [facility] [address] 07/17/2020 08:30:45 07/19/2020 08:08:19 Edema of lower extremity 987253515 R60.0 BNP improved on last labcont lasix to 40 mg, along with K 10 mEq low salt diet Hyperlipidemia 67074712 E78.5 Cont taking lovastatin 40 mg and fenofibrat e 160 mg Essential hypertension 73330180 I10 Continue on metoprolol tartrate 25 mg BID, dwp increase fluids and decrease sodium intake as well Gastroesop hageal reflux disease 090968766 K21.9 stopped Ranitidine 150 mg BID. d/t recall, taking otc and doing ok Overactive urinary bladder 879052675 N32.81 cont oxybutynin 5 mg bid Vitamin D deficiency 347 56180 E55.9 may cont replacemen t to raise and maintain level above 30 [id number] IVAN Russell 14 IM [address] [facility] [place] [address] 07/24/2020 12:03:04 07/24/2020 16:16:19 Administration of SARS-CoV-2 antigen vaccine 427635696 Z23 [id number] IVAN Russell 14 IM [address] [facility] [place] [address] 08/21/2020 11:47:18 08/23/2020 09:50:22 Administration of SARS-CoV-2 antigen vaccine 943220980 Z23 [id number] Renata Montgomery APN, FNP-C [facility] (Adult Med) [address] [facility] [address] 09/26/2020 11:51:06 09/27/2020 09:30:55 Edema of lower extremity 677741484 R60.0 BNP improved on last lab cont lasix to 40 mg, along with K 10 mEq low salt diet Hyperlipidemia 10521260 E78.5 Cont taking lovastatin 40 mg and fenofibrat e 160 mg Essential hypertension 74529100 I10 meets JNC8 guidelines for age Continue on metoprolol tartrate 25 mg BID, dwp increase fluids and decrease sodium intake as well Gastroesop hageal reflux disease 772884086 K21.9 stopped Ranitidine 150 mg BID. d/t recall, taking otc and doing ok Overactive urinary bladder 282798209 N32.81 cont oxybutynin 5 mg qd; Vitamin D deficiency 347 60655 E55.9 may cont replacemen t to raise and maintain level above 30 [id number] Renata Montgomery APN, ANA Perez (Adult Med) [address] [place] [address] 12/29/2020 09:34:55 01/02/2021 08:25:46 Edema of lower extremity 955579411 R60.0 BNP improved on last lab cont lasix to 40 mg, along with K 10 mEq low salt diet Hyperlipidemia 11048435 E78.5 Cont taking lovastatin 40 mg and fenofibrat e 160 mg Essential hypertension 99274203 I10 meets JNC8 guidelines for age Continue on metoprolol tartrate 25 mg BID, dwp increase fluids and decrease sodium intake as well Gastroesop hageal reflux disease 460803804 K21.9 stopped Ranitidine 150 mg BID. d/t recall, taking otc and doing ok Overactive urinary bladder 555413843 N32.81 cont oxybutynin 5 mg qd; wants to go back to bid dosing Vitamin D deficiency 347 29855 E55.9 may cont replacemen t to raise and maintain level above 30 Cough 73242774 R05 taking tessalon perles prndwp getting covid testing [id number] ALISHA Samaniego [address] [place] [address] 12/29/2020 10:41:49 12/29/2020 14:05:11 Viral syndrome 254687927 B34.9 D/w pt the current pandemic of COVID-19 and call for social isolation in order to blunt the curve and minimize risk and spread. Encouraged patient and family to take restrictio ns seriously. They have verbalized understand ing of such. [id number] Rneata Montgomery APN, ANA Perez (Adult Med) [address] [place] [address] 04/02/2021 09:18:13 04/06/2021 10:10:37 Edema of lower extremity 716239159 R60.0 BNP improved on last lab cont lasix to 40 mg, along with K 10 mEq low salt diet Hyperlipidemia 42082284 E78.5 Cont taking lovastatin 40 mg and fenofibrat e 160 mg Essential hypertension 79316245 I10 meets JNC8 guidelines for age; Continue on metoprolol tartrate 25 mg BID, dwp increase fluids and decrease sodium intake as well Gastroesop hageal reflux disease 909775311 K21.9 stopped Ranitidine 150 mg BID. d/t recall, taking otc and doing ok Overactive urinary bladder 516684546 N32.81 cont oxybutynin 5 mg qd; wants to go back to bid dosing Vitamin D deficiency 347 46271 E55.9 may cont replacemen t to raise and maintain level above 30 Obesity 656402347 E66.9 discussed increasing activity level to improve weight and mobility [id number] BRYANT Griffin (Adult Med) [address] [place] [address] 05/10/2021 10:40:44 05/11/2021 08:47:00 Administration of SARS-CoV-2 mRNA vaccine [id number] Z23 [id number] Renata Montgomery APN, PUBLIC WORKS LABORER-C [place] (Adult Med) [address] [place] [address] 08/21/2021 09:25:59 08/22/2021 07:36:32 Edema of lower extremity 785407571 R60.0 BNP improved on last lab cont lasix to 40 mg, along with K 10 mEq low salt diet Hyperlipidemia 61536702 E78.5 Cont taking lovastatin 40 mg and fenofibrat e 160 mg Essential hypertension 87145129 I10 meets JNC8 guidelines for age; Continue on metoprolol tartrate 25 mg BID, dwp increase fluids and decrease sodium intake as well Gastroesop hageal reflux disease 955304506 K21.9 stopped Ranitidine 150 mg BID. d/t recall, taking otc and doing ok Overactive urinary bladder 361090373 N32.81 cont oxybutynin 5 mg qd; wants to go back to bid dosing Vitamin D deficiency 347 62537 E55.9 may cont replacemen t to raise and maintain level above 30 Obesity 143542485 E66.9 discussed increasing activity level to improve weight and mobility Mild memor y disturbance 388085532 R41.3 dwp taking prevagen or like substance; [id number] Renata Montgomery APN, ANA Perez (Adult Med) [address] [place] [address] 11/21/2021 09:18:07 11/22/2021 09:47:04 Edema of lower extremity 357087813 R60.0 BNP improved on last lab cont lasix to 40 mg, along with K 10 mEq low salt diet Hyperlipidemia 57086490 E78.5 Cont taking lovastatin 40 mg and fenofibrat e 160 mg Essential hypertension 46848043 I10 meets JNC8 guidelines for age; Continue on metoprolol tartrate 25 mg BID, dwp increase fluids and decrease sodium intake as well Gastroesop hageal reflux disease 609037924 K21.9 stopped Ranitidine 150 mg BID. d/t recall, taking otc and doing ok Overactive urinary bladder 239885855 N32.81 cont oxybutynin 5 mg qd; wants to go back to bid dosing; still leaking a lot, will change to ER doing and 10 mg; offered urology referral, Vitamin D deficiency 347 45808 E55.9 may cont replacemen t to raise and maintain level above 30 Obesity 355787687 E66.9 discussed increasing activity level to improve weight and mobility Mild memor y disturbance 731713854 R41.3 dwp taking prevagen or like substance; [id number] Leanna Perez (Adult Med) [address] [place] [address] 11/29/2021 10:09:29 12/03/2021 12:46:15 Administration of SARS-CoV-2 mRNA vaccine [id number] Z23 [id number] Renata Montgomery APN, ANA Perez (Adult Med) [address] [facility] [address] 02/21/2022 09:31:22 02/22/2022 07:35:32 Edema of lower extremity 523563977 R60.0 BNP improved on last lab cont lasix to 40 mg, along with K 10 mEq low salt diet Hyperlipidemia 20310537 E78.5 Cont taking lovastatin 40 mg and fenofibrat e 160 mg Essential hypertension 75372269 I10 meets JNC8 guidelines for age; saw cardio 01/25/22 Continue on metoprolol tartrate 25 mg BID, dwp increase fluids and decrease sodium intake as well Gastroesop hageal reflux disease 545831409 K21.9 stopped Ranitidine 150 mg BID. d/t recall, taking otc and doing ok Overactive urinary bladder 824059665 N32.81 cont oxybutynin 5 mg qd; wants to go back to bid dosing; still leaking a lot, will change to ER doing and 10 mg; offered urology referral, Vitamin D deficiency 347 36783 E55.9 may cont replacemen t to raise and maintain level above 30 Obesity 757548845 E66.9 discussed increasing activity level to improve weight and mobility Mild memor y disturbance 231042392 R41.3 dwp taking prevagen or like substance; [id number] BRYANT William (Adult Med) [address] [facility] [place] [address] 04/10/2022 10:30:23 04/11/2022 13:53:40 Administration of influenza vaccine 59359184 Z23 [facility] handout provided [id number] Renata Montgomery APN, PUBLIC WORKS LABORER-C Chris (Adult Med) [address] [place] [address] 08/22/2022 10:18:17 08/26/2022 14:20:38 Edema of lower extremity 261299912 R60.0 cont lasix to 40 mg, along with K 10 mEq low salt diet Hyperlipidemia 94321612 E78.5 Cont taking lovastatin 40 mg and fenofibrat e 160 mg Essential hypertension 82560093 I10 meets JNC8 guidelines for age; saw cardio 01/25/22 Continue on metoprolol tartrate 25 mg BID, dwp increase fluids and decrease sodium intake as well Gastroesop hageal reflux disease 823908894 K21.9 stopped Ranitidine 150 mg BID. d/t recall, taking otc and doing ok Overactive urinary bladder 868437267 N32.81 cont oxybutynin 5 mg qd; wants to go back to bid dosing; still leaking a lot, will change to ER doing and 10 mg; offered urology referral, Vitamin D deficiency 347 12426 E55.9 may cont replacemen t to raise and maintain level above 30 Obesity 369968223 E66.9 discussed increasing activity level to improve weight and mobility Mild memor y disturbance 286034710 R41.3 dwp taking prevagen or like substance; Acute bronchitis 7162209 2 J20.9 rhonchi present, will cover with abx, tussin cough [id number] Renata Montgomery APN, ANA Perez (Adult Med) [address] [place] [address] 02/25/2023 11:05:52 03/03/2023 14:23:06 Edema of lower extremity 574927397 R60.0 cont lasix to 40 mg, along with K 10 mEq low salt diet Hyperlipidemia 72542022 E78.5 Cont taking lovastatin 40 mg and fenofibrat e 160 mg Essential hypertension 00254915 I10 meets JNC8 guidelines for age; Continue on metoprolol tartrate 25 mg BID, dwp increase fluids and decrease sodium intake as well Gastroesop hageal reflux disease 736413092 K21.9 stopped Ranitidine 150 mg BID. d/t recall, taking otc and doing ok Overactive urinary bladder 011041243 N32.81 cont oxybutynin 5 mg qd; wants to go back to bid dosing; still leaking a lot, will change to ER doing and 10 mg; offered urology referral, pt declines but will increase to 15 mg Vitamin D deficiency 347 53925 E55.9 may cont replacemen t to raise and maintain level above 30 Obesity 216820691 E66.9 discussed increasing activity level to improve weight and mobility Mild memor y disturbance 164421131 R41.3 dwp taking prevagen or like substance; [id number] Renata Montgomery APN, ANA Perez (Adult Med) [address] [place] [address] 08/26/2023 11:15:33 08/28/2023 09:28:06 Essential hypertension 94278533 I10 meets JNC8 guidelines for age Continue on metoprolol tartrate 25 mg BID, dwp increase fluids and decrease sodium intake as well Edema of l ower extremity 248674490 R60.0 cont lasix to 40 mg, along with K 10 mEq low salt diet Hyperlipidemia 13186670 E78.5 Cont taking lovastatin 40 mg and fenofibrat e 160 mg Gastroesop hageal reflux disease 879071386 K21.9 stopped Ranitidine 150 mg BID. d/t recall, taking otc and doing ok Overactive urinary bladder 168189964 N32.81 cont oxybutynin 15 mg qd; wants to go back to bid dosing; still leaking a lot, offered urology referral, pt declines Vitamin D deficiency 347 05647 E55.9 may cont replacemen t to raise and maintain level above 30 Obesity 039974580 E66.9 discussed increasing activity level to improve weight and mobility Mild memor y disturbance 042957988 R41.3 dwp taking prevagen or like substance; Excessive daytime sleepiness - normal night sleep 977167330 G47.19 score of 9-higher than normal daytime sleepiness ; dwp sleep habits and hygeine. does not wish to have sleep study at this time;pt showed genet from phone, is getting good sleep, last night got 11 hours [id number] Renata Montgomery APN, PUBLIC WORKS LABORER-C [place] (Adult Med) [address] [place] [address] 11/27/2023 11:10:53 11/28/2023 16:15:02 Acquired trigger finger of right middle finger 4270798394 05771 M65.331 Conservati ve Management :Rest: Advise patient [...] inflammati on and relieve symptoms. Essential hypertension 61103938 I10 meets JNC8 guidelines for age Continue on metoprolol tartrate 25 mg BID, dwp increase fluids and decrease sodium intake as well Edema of l ower extremity 522821638 R60.0 cont lasix to 40 mg, and 20 mg along with K 10 mEq low salt diet Hyperlipidemia 34535755 E78.5 Cont taking lovastatin 40 mg and fenofibrat e 160 mg Gastroesop hageal reflux disease 755598780 K21.9 stopped Ranitidine 150 mg BID. d/t recall, taking otc and doing ok Overactive urinary bladder 634224404 N32.81 cont oxybutynin 15 mg qd; wants to go back to bid dosing; still leaking a lot, offered urology referral, pt declines Vitamin D deficiency 347 23831 E55.9 may cont replacemen t to raise and maintain level above 30 Obesity 555583943 E66.9 discussed increasing activity level to improve weight and mobility Mild memor y disturbance 308523206 R41.3 dwp taking prevagen or like substance; Excessive daytime sleepiness - normal night sleep 684945297 G47.19 pt showed genet from phone, is getting good sleep, last night got 11 hours [id number] Renata Montgomery APN, PUBLIC WORKS LABORER-C Chris (Adult Med) [address] [place] [address] 03/29/2024 10:43:33 04/01/2024 16:25:09 Acquired trigger finger of right middle finger 7646027114 55822 M65.331 Conservati ve Management :Rest: Advise patient [...] inflammati on and relieve symptoms. Essential hypertension 69787643 I10 meets JNC8 guidelines for age Continue on metoprolol tartrate 25 mg BID, decrease sodium intake as well Edema of l ower extremity 718723047 R60.0 cont lasix to 40 mg, and 20 mg along with K 10 mEq low salt diet Hyperlipidemia 76665344 E78.5 Cont taking lovastatin 40 mg and fenofibrat e 160 mg Gastroesop hageal reflux disease 831353437 K21.9 stopped Ranitidine 150 mg BID. d/t recall, taking otc and doing ok Overactive urinary bladder 126599112 N32.81 cont oxybutynin 15 mg qd; wants to go back to bid dosing; still leaking a lot, offered urology referral, pt declines Vitamin D deficiency 347 73799 E55.9 may cont replacemen t to raise and maintain level above 30 Obesity 456093526 E66.9 discussed increasing activity level to improve weight and mobility Mild memor y disturbance 333264784 R41.3 dwp taking prevagen or like substance; Excessive daytime sleepiness - normal night sleep 852124202 G47.19 pt showed genet from phone, is getting good sleep, last night got 11 hours Administra tion of influenza vaccine 06345665 Z23 [facility] handout provided [id number] Renata Montgomery APN, PUBLIC WORKS LABORER-C Chris SILVER[place] (Adult Med) [address] [place] [address] 08/02/2024 11:11:59 08/04/2024 16:13:57 Acquired trigger finger of right middle finger 8959194615 16953 M65.331 Conservati ve Management :Rest: Advise patient [...] would like new referral now Essential hypertension 00345665 I10 meets JNC8 guidelines for age Continue on metoprolol tartrate 25 mg BID, decrease sodium intake as well Edema of l ower extremity 416371229 R60.0 cont lasix to 40 mg, and 20 mg along with K 10 mEq low salt diet Hyperlipidemia 22896843 E78.5 Cont taking lovastatin 40 mg and fenofibrat e 160 mg Gastroesop hageal reflux disease 813618118 K21.9 stopped Ranitidine 150 mg BID. d/t recall, taking otc and doing ok Overactive urinary bladder 932266427 N32.81 cont oxybutynin 15 mg qd; wants to go back to bid dosing; still leaking a lot, offered urology referral, pt declines Vitamin D deficiency 347 30987 E55.9 may cont replacemen t to raise and maintain level above 30 Obesity 934795360 E66.9 discussed increasing activity level to improve weight and mobility Mild memor y disturbance 407268385 R41.3 dwp taking prevagen or like substance; Excessive daytime sleepiness - normal night sleep 431488616 G47.19 pt showed genet from phone, is getting good sleep, last night got 11 hours Administra tion of SARS-CoV-2 mRNA vaccine 4673458869 Z23 Health Concerns Section Related Observation LastModified by Organization Detai ls LastModified Time None Recorded Concern Status LastModified by Organization Details LastModified Time None Recorded Advance Directives Directive N: Payers Encounter Date Sequence Insurance Name Policy Number Policy Siddiqui Covered Member ID Siddiqui Member ID Guarantor Name 02/25/2023 1 [facility] (MEDICARE REPLACEMENT/AD VANTAGE - HMO) [id number] Dianna Arana [id number] Dianna Arana 08/26/2023 1 [facility] (MEDICARE REPLACEMENT/AD VANTAGE - HMO) [id number] Dianna Arana [id number] Dianna Arana 11/27/2023 1 [facility] (MEDICARE REPLACEMENT/AD VANTAGE - HMO) [id number] Dianna Arana [id number] Dianna Arana 03/29/2024 1 [facility] (MEDICARE REPLACEMENT/AD VANTAGE - HMO) [id number] Dianna Arana [id number] Dianna Arana 08/02/2024 1 [employer] (MEDICARE REPLACEMENT PPO) [id number] Dianna Arana [id number] Dianna Arana 08/02/2024 2 *SELF PAY* [place] [...] position or at sleep Renata Montgomery APN, ANA Attn: Accounting,[address] [place] [address], [address], [place] - [facility] 02/25/2023 11:39:33 4 text/html [...] Montgomery APN, FNP-C Attn: Accounting,[address] [facility], [place], [address], [facility] 08/26/2023 18:02:25 4 text/html HyperlipidemiaReported bypatient.Type of [...] Montgomery APN, FNP-C Attn: Accounting,[address] [facility], [place], [address], [facility] 11/27/2023 12:06:35 4 text/html HyperlipidemiaReported bypatient.Type of [...] position or at sleep Renata Montgomery APN, PUBLIC WORKS LABORER-C Attn: Accounting,[address] [place] [address], [address], [place] [facility] 03/30/2024 14:11:08 5 text/html [...] have a covid shot Renata Montgomery APN, PUBLIC WORKS LABORER-C Attn: Accounting,[address] [place], [address], [facility] 08/03/2024 10:34:55 OBGyn Episode No OBEpisode recorded.
--- OUTSIDE RECORDS SUMMARY | 2024-09-23 08:08 | XMS_ITS | Referral Summary ---
Author Organization [facility] [address] [facility] Address [address] [place] [address] Care Team Providers Care Unpaid Intern Name Role Phone Miscellaneous, Not In File Unavailable Unava ilRenaat Plascencia SHIRRING MACHINE OPERATOR Primary Care Provider + [phone] Encounters Date Type Department Care Team Description 09/08/2024 Telephone [facility] [address] [place] [phone] Rebel Villalba NP 09/08/2024 Orders Only [facility] [address] [place] [phone] Rebel Villalba NP Right hand pain (Primary Dx); Contracture of joint of finger of right hand 09/08/2024 7:50 AM CDT - 09/08/2024 11:59 PM CDT Hospital Encounter [facility] [address] [place] [phone] Discharge Disposition: Discharge to home or self care 09/08/2024 2:45 PM CDT Office Visit [facility] [address] [place] [address], [place] [phone] Rebel Villalba NP Right hand pain (Primary [...] on file Legal 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 Rebel Villalba SHIRRING MACHINE OPERATOR IMG XR PROCEDURES Final Result from Last 3 Months Insurance [facility] HMO REF [facility] MEDICARE ADVANTAGE [employer] MEDICARE Advance Directives For more information, please contact: [phone] * Full Code (Latest Code Status on File) Date Activated Date Inactivated Comments 11/30/2019 10:34 PM 12/03/2019 10:43 PM Care Teams Unpaid Intern Relationship Specialty Start Date End Date Mcdaniel, Renata Cisneros NP [address] [place] [address] PCP - General Nurse Practitioner 09/25/21 Miscellaneous, Not In File 12/03/19
--- OUTSIDE RECORDS SUMMARY | 2024-09-23 08:08 | XMS_ITS | Clinical Summary ---
Author Organization [facility] Address [address] [place] [address] Phone Care Team Providers Care Dispute Resolution Analyst Name Role Phone Violeta, Renata MURILLO CNP Primary Care Provider [phone] Social History Tobacco Use Types Packs/Day Years [...] Procedure Name Priority Date/Time Associated Diagnosis Comments [facility] BONE DENSITOMETRY AXIAL SKELETON Routine 06/27/2015 12:13 PM CRITICAL SYSTEMS TECHNICIAN Osteopenia from Last 3 Months or Most Recently Relevant to Health Maintenance Results * [facility] BONE DENSITOMETRY AXIAL SKELETON (06/27/2015 12:13 PM CRITICAL SYSTEMS TECHNICIAN) Anatomical Region Laterality Modality BODY N/A Other 06/27/2015 3:06 PM CRITICAL SYSTEMS TECHNICIAN Impressions 06/27/2015 3:10 PM CRITICAL SYSTEMS TECHNICIAN IMPRESSION: Low bone mass. The patient's risk [...] of Osteoporosis (http://www.nof.org/professionals/clinical-guidelines) Narrative 06/27/2015 3:10 PM CRITICAL SYSTEMS TECHNICIAN HISTORY: 75 year old postmenopausal female with [...] regular dairy product consumption. COMPARISON(S): 02/18/2013, 11/09/2010 ACCOUNTING ANALYST/MODEL: WUT (S/N [id number]) FINDINGS: AP lumbar spine L2-L4 Total BMD is 1.038 g/vj1K-szqps is -1.4 Most recent prior BMD was 1.041 g/cm2 There has been a 0.3% decrease in BMD which is not statistically significant. Left Hip Current Total BMD is 0.816 g/xd1D-rbrow is -1.5 Most recent prior Total BMD was 0.820 g/cm2 There has been a 0.5% decreased in BMD which is not statistically significant. Current femoral neck BMD is 0.703 g/wk5I-xqdia is -2.4 Fracture risk assessment (FRAX): 10 [...] regular dairy product consumption. COMPARISON(S): 02/18/2013, 11/09/2010 ACCOUNTING ANALYST/MODEL: WUT (S/N [id number]) FINDINGS: AP lumbar spine L2-L4 Total BMD is 1.038 g/ri7F-wnlef is -1.4 Most recent prior BMD was 1.041 g/cm2 There has been a 0.3% decrease in BMD which is not statistically significant. Left Hip Current Total BMD is 0.816 g/cj8V-kfpwb is -1.5 Most recent prior Total BMD was 0.820 g/cm2 There has been a 0.5% decreased in BMD which is not statistically significant. Current femoral neck BMD is 0.703 g/rf6H-ilafp is -2.4 Fracture risk assessment (FRAX): 10 [...] Relevant to Health Maintenance [facility] Care Teams Dispute Resolution Analyst Relationship Specialty Start Date End Date Renata Mcdaniel APRN, IMPORT COORDINATION AND PRODUCTION HEAD [address] [place] [address] PCP - General Family Medicine 03/07/22
[2024-09-23 08:18] VITALS: BP 173/86; PULSE 82; RESP 16; TEMP 36.6; O2SAT 96
[2024-09-23] MEDS: LACTATED RINGERS 1,000 ML 30 ML IV CONT (08:31)
--- NOTE | 2024-09-23 09:11 | P.PNAN_ITS ---
Anes - Initial Pre Proc Eval Procedure: Operation Date: 09/23/24 10:45 Proposed Procedures p Right Middle Trigger Finger Release; Possible Proximal Interphalangeal Capsulotomy - Stephon Nevarez MD s Steroid Injection Left Middle Finger - Stephon Nevarez MD Date/Time: 09/23/24 09:11 Surgeon: Stephon Nevarez MD Pre Op Diagnosis: RT Middle Trigger Finger & Stiffness of Joint Patient Data Age: 84 Gender: F Height: 1.63 m Weight: 81.51 kg Last Vital Signs Temp 36.6 C 09/23/24 08:18 Pulse 82 09/23/24 08:18 Resp 16 09/23/24 08:18 BP 173/86 H 09/23/24 08:18 Pulse Ox 96 09/23/24 08:18 O2 Del Method Room Air 09/23/24 08:18 Allergies Allergy/AdvReac Type Severity Reaction Status Date / Time Penicillins Allergy Intermediate Rash Verified 09/23/24 08:17 demeclocycline Allergy Unknown Unknown Verified 09/23/24 08:17 nickel AdvReac Intermediate Rash Verified 09/23/24 08:17 Home Medications ?Medication ?Instructions ?Recorded ?Confirmed ?Type alendronate 70 mg tablet 70 mg PO WEEKLY 09/15/24 09/23/24 History ascorbic acid (vitamin C) 1,000 mg 1 g PO DAILY 09/15/24 09/23/24 History tablet (Vitamin C) calcium 150 mg tablet 150 mg PO DAILY 09/15/24 09/23/24 History cholecalciferol (vitamin D3) 25 25 mcg PO DAILY 09/15/24 09/23/24 History mcg (1,000 unit) capsule (Vitamin D3) clopidogrel 75 mg tablet 75 mg PO DAILY 09/15/24 09/23/24 History fenofibrate 160 mg tablet 160 mg PO HS 09/15/24 09/23/24 History furosemide 40 mg tablet 40 mg PO DAILY 09/15/24 09/23/24 History lovastatin 40 mg tablet 40 mg PO HS 09/15/24 09/23/24 History metoprolol tartrate 25 mg tablet 25 mg PO BID 09/15/24 09/23/24 History omega 3 350 mg-dha 235 mg-epa 90 1 cap PO DAILY 09/15/24 09/23/24 History mg-fish oil 597 mg capsule,delay rel (Milroy-3) Patient hx anesthesia problems: none Family hx anesthesia problems: none Results Review: All pre-operative results and documents have been reviewed as part of the pre- operative evaluation. [facility] Past Medical History Medical History (Updated 09/23/24 @ 09:11 by Reed Price MD) Hyperlipidemia HTN (hypertension) Social History Social History (Updated 09/23/24 @ 09:11 by Reed Price MD) Smoking packs per day: 1.5 Smoking cigarettes per day: 30.0 Years smoked: 30 Smoking pack-years: 45.00 Smoking status: Current some day smoker Tobacco type: cigarettes Alcohol intake: never Substance use: never Substance use type: does not use Living arrangements: with family Additional living arrangements comments: with significant other and daughter Spiritual care concerns: No Anes - Eval Final PreProcedure Day of Procedure 09/23/24 09:11 Patient weight: obese Heart: regular rate and rhythm Lungs: clear to auscultation Airway: Mallampati scale class II Last oral intake: >/= 8 hours ASA classification: III Emergent: no Anesthetic plan: proceed Anesthesia type and monitoring: general GIVS and standard monitoring Results Review: All pre-operative results and documents have been reviewed as part of the pre- operative evaluation. Informed Consent: The patient's anesthetic plan and its attendant risks and benefits were discussed with the patient/family/POA. Questions were solicited and answers provided to the satisfaction of the patient/family/POA.
[2024-09-23] MEDS: ceFAZolin SODIUM 2 GM/20 ML SW SYRINGE IV PUSH (09:49)
[2024-09-23] MEDS: BUPivacaine HCL 0.5% PF 30 ML VIAL INFILTRATE (09:54)
[2024-09-23] MEDS: LIDOCAINE 1% LOCAL INJ 20 ML VIAL 3.3 ML INFILTRATE (09:54)
[2024-09-23] MEDS: BETAMETHASONE SODIUM PHOSPHATE PF INJ 6 MG/ML VIAL 4.2 MG INFILTRATE (09:54)
[2024-09-23 10:05] VITALS: BP 128/66; PULSE 65; RESP 16; O2SAT 98
--- NOTE | 2024-09-23 10:12 | WPDANESPN ---
Anes - Prog Note Post-Op Date/Time: 09/23/24 10:12 Cardiovascular status: normal Respiratory status: normal Airway patency: baseline Mental status: baseline Post-Op hydration status: normal Vital Signs: Last Vital Signs Temp 36.6 C 09/23/24 08:18 Pulse 82 09/23/24 08:18 Resp 16 09/23/24 08:18 BP 173/86 H 09/23/24 08:18 Pulse Ox 96 09/23/24 08:18 O2 Del Method Room Air 09/23/24 08:18 Pain Score (VAS): 0/10 Patient Feedback: Patient satisfied with anesthetic care.
[2024-09-23 10:15] VITALS: BP 125/50; PULSE 67; RESP 14; O2SAT 98
[2024-09-23 10:25] VITALS: BP 173/56; PULSE 67; RESP 15; O2SAT 97
[2024-09-23 10:35] VITALS: BP 163/64; PULSE 66; RESP 16; O2SAT 96
== END 2024-09-23 10:57 | disposition home or self-care (01) ==
PROVIDERS: PCP Nurse Practitioner Family; Visit Provider Plastic Surgery
PROC: (CPT 26055; principal; 2024-09-23 10:30)
PROC: (CPT 26055; 2024-09-23 10:30)
DX: M65.331 Trigger finger, right middle finger (principal); M65.332 Trigger finger, left middle finger; M25.641 Stiffness of right hand, not elsewhere classified
CPT/HCPCS: 26055; 20550